=== PATIENT | female | born 1995 | race Caucasian/White ===

== ENCOUNTER 2023-03-19 11:21 | Outpatient (CLI) | payer OTHER, SELFPAY ==
--- NOTE | ~2023-03-19 | XR_ITS ---
XR finger 4th LT min 2V DATE: 03/19/2023 11:51 INDICATION: Left ring finger stiffness. Unable to bend distal interphalangeal joint TECHNIQUE: 4 views COMPARISON: None FINDINGS: No recent fracture or dislocation, periosteal reaction or bone destruction is detected. There is joint space target the proximal interphalangeal joint with slight. Spurring, consistent with osteoarthritis. 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 ACUTE
== END 2023-03-19 11:22 | disposition home or self-care (01) ==
PROVIDERS: PCP Family Medicine; Visit Provider Plastic Surgery
DX: M19.042 Primary osteoarthritis, left hand (principal); S63.635A Sprain of interphalangeal joint of left ring finger, initial encounter
CPT/HCPCS: 73140

== ENCOUNTER 2023-04-06 09:15 | Outpatient (CLI) | payer OTHER, SELFPAY ==
--- NOTE | ~2023-04-06 | MR_ITS ---
MRI of the left hand CLINICAL HISTORY: Left ring finger tendon injury versus sprain TECHNIQUE: Coronal T1-weighted and T2 fat-sat images, axial T1-weighted and T2 fat-sat images, and sa gittal T1-weighted and T2 fat-sat images were performed. FINDINGS: Bone marrow signals are essentially unremarkable. No suspicious marrow edema or T1 marrow s ignal abnormality seen. No fracture seen. There is moderate degenerative change at the fourth PIP lorraine nt, with minimal reactive marrow edema about the joint space. Remaining joint spaces are relatively w ell-preserved. Flexor and extensor tendons are intact. Visualized musculature unremarkable. No joint effusion seen. No soft tissue mass or fluid collection identified. IMPRESSION: Moderate degenerative change at the fourth PIP joint. No other significant findings. Reviewed, dictated and finalized at location . EL OPERATOR
== END 2023-04-06 09:16 | disposition home or self-care (01) ==
LOC: ANHIMG 09:17
PROVIDERS: PCP Family Medicine; Visit Provider Plastic Surgery
DX: S63.635A Sprain of interphalangeal joint of left ring finger, initial encounter (principal); S56.119A Strain of flexor muscle, fascia and tendon of finger of unspecified finger at forearm level, initial encounter; X58.XXXA Exposure to other specified factors, initial encounter
CPT/HCPCS: 73218

== ENCOUNTER 2023-06-12 08:15 | Outpatient (RCR) | payer OTHER, SELFPAY ==
--- NOTE | 2023-05-24 15:40 | OTOPEVAL1 ---
Assessment and note entered by Pino Blackmon, MAIA/Arjun, CHT Evaluation Information 05/24/23 Diagnosis Left ring finger PIP joint sprain Onset ~6 months ago Subjective Information Patient fell and the ring finger was bent backwards. She presents today with residual pain, stiffness, and weakness. Difficulties with gripping items. 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 She is right handed. Reported Pain Level Pain Score 0/10 at rest Comments Sharp increase in pain if the finger is forcefully bent, like when her dog runs into her hand. Assessment OT Clinical Summary Patient referred to OT with left ring finger PIP sprain. She presents with residual stiffness and weakness that limits gross functional gripping and typing tasks. Skilled OT indicated for HEP instruction/progression, modalities, ROM, strengthening, and functional therapeutic exercises to facilitate optimal functional strength, ROM, and use of her left hand. Plan of Care Interventions Therapeutic Exercise,Manual Therapy,Hot Pack/Cold Pack,Paraffin OT Services Indicated Yes Treatment Frequency and 1x/week for 4 visits Duration These treatments will address the objective and functional deficits as defined above. The patient will be advanced safely and appropriately in order for the patient to progress towards his/her prior level of function. Additional exercises will be introduced and as well as a comprehensive home exercise program upon discharge, if needed, ?to ensure carryover of functional gains achieved in the clinic. This treatment plan has been reviewed and agreement upon by the patient.
--- NOTE | 2023-05-29 11:37 | PCOTNOTE ---
Patient did not show up for scheduled appointment this date. Called patient and left voicemail regarding missed appt and reminded of next appt time/date.
--- NOTE | 2023-06-19 11:37 | PCOTNOTE ---
Patient did not show up for scheduled appointment this date. Called patient and left voicemail regarding missed appt and to call back to schedule as it was her re-eval.
--- NOTE | 2023-07-03 08:04 | OTOPDC ---
Assessment and note entered by Pino Blackmon, MAIA/Arjun, CHT OT Discharge Notification 07/03/23 OT Clinical Summary Patient is unfortunately being discharged due to poor attendance. We have been unable to contact her. Patient was referred to OT with a chronic PIP joint sprain. She was independent with active/ passive ROM, putty HEP, as well as flexion strap for passive prolonged flexion stretching. Discharging with no formal reassessment completed.
== END 2023-07-03 11:15 | disposition home or self-care (01) ==
LOC: ANHOT 08:15
PROVIDERS: PCP Family Medicine; Visit Provider Plastic Surgery
DX: S63.635D Sprain of interphalangeal joint of left ring finger, subsequent encounter (principal)
CPT/HCPCS: 97018; 97110; 97165; 99199

== ENCOUNTER 2024-06-18 14:19 | Emergency (ER) | payer OTHER, SELFPAY ==
--- NOTE | ~2024-06-18 | XR_ITS ---
EXAMINATION: XR ankle LT 2V DATE: 06/18/2024 14:36 INDICATION: Left ankle pain and swelling post fall TECHNIQUE: Anteroposterior and lateral views of the left ankle were obtained. COMPARISON: 11/27/2007 FINDINGS: There is an oblique fracture through the distal fibula with a fracture plane exiting medially at the level of the tibiotalar joint. There is minimal displacement. Subtle linear lucency consistent with a likely second nondisplaced comminuted fracture across the posterior malleolus which does not appear to involve the articular cortex. The medial malleolus as well as the talar dome are intact. Ankle mo rtise remains congruent. Small to moderate-sized Achilles and plantar calcaneal spurs. Soft tissue sw elling overlying the lateral malleolus. No ankle joint effusion. IMPRESSION: 1. Minimally displaced oblique fracture of the distal left fibula consistent with a Williamson type B inju ry pattern. 2. Likely nondisplaced fracture across the posterior malleolus. Reviewed, dictated and finalized at location A. G[facility]ADEMIC IMPRESSION: 1. Minimally displaced oblique fracture of the distal left fibula consistent wi th a Williamson type B injury pattern. 2. Likely nondisplaced fracture across the posterior malleolus.
--- OUTSIDE RECORDS SUMMARY | 2024-06-18 14:22 | XMS_ITS | Clinical Summary ---
Author Organization [email or web address] Address [address] [place] [address] Care Team Providers Care Bumper Operator Name Role Phone Daisy Hanks AMY-YAMILA Primary Care Provider Source Comments [facility],non-owned Affiliates and Associated Physician Practices is amultiple site organization consisting of ambulatory clinics and hospital sitesin [place], [place]. This disclosure is being madepursuant to the Care Everywhere program and may not contain all information available regarding this patient. Last updated 18.[email or web address] Allergies Active Allergy Reactions Criticality Noted Date Comments Skin Adhesives Rash Medium 01/30/2023 rash Medications * Be aware that medications may not be up to date on this document. Alwaysverify current medications with the patient. Medication Sig Dispensed Refills Start Date End Date Status SUMAtriptan (Imitrex) 25 MG tablet TAKE 1 TABLET BY MOUTH AT ONSET OF SYMPTOMS. MAY REPEAT IN 2 HOURS FOR 1 DOSE. DO NOT EXCEED 200 MG IN 24 HOURS 01/10/2022 Active etonogestrel (Nexplanon) 68 MG implant Nexplanon 68 mg subdermal implant Active ibuprofen (Motrin) 600 MG tablet Take 1 (one) tablet by mouth every 6 hours as needed for Pain 30 tablet 01/24/2024 Active docusate sodium (Colace) 100 MG capsule Take 1 (one) capsule by mouth 2 times daily 14 capsule 01/24/2024 Active ondansetron, disintegrating, (Zofran ODT) 4 MG tablet Take 1 (one) tablet by mouth every 6 hours as needed for Nausea/Vomiting Allow tablet to dissolve on the tongue 20 tablet 01/24/2024 Active methocarbamol (Robaxin) 750 MG tablet Take 1 (one) tablet by mouth every 6 hours as needed for Muscle Spasms 8 tablet 01/24/2024 Active Sodium Chloride Flush (0.9% NaCl) injection 10 mL by Intracatheter route every 12 hours 100 mL 2 02/26/2024 Active oxyCODONE, immediate release, (Roxicodone) 10 MG tabletIndications:A cute cholecystitis Take 1 (one) tablet by mouth every 4 hours as needed 10 tablet 03/13/2024 Active acetaminophen (Tylenol) 325 MG tablet Take 2 (two) tablets by mouth every 6 hours as needed Maximum allowable Acetaminophen amount = 4 Grams (4000 mg) / 24 hours. 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 (F LUZONE; FLULAVAL; FLUARIX; AFLURIA QUADRIVALENT; 6MO+), 0.5 ML (IIV4) 03/04/2022(Deferred: Patient Refused) Social History Tobacco Use Types Packs/Day Years Used Date Smoking Tobacco: Never Smokeless Tobacco: Never Tobacco Cessation:Counseling Given: Yes Alcohol Use Standard Drinks/Week Comments Never 0 (1 standard drink = 0.6 oz pur e alcohol) AUDIT-C Answer Date Recorded Q1: How often do you have a drink containing alcohol? Never 03/13/2024 Q2: How many drinks containi ng alcohol do you have on a typical day when you are drinking? Patient does not drink Q3: How often do you have si x or more drinks on one occasion? Never 03/13/2024 Overall Financial Resource Strain (CARDIA) Answe r Date Recorded How hard is it for you to pa y for the very basics like food, housing, medical care, and heating? Not very hard 03/13/2024 [facility] - Occupational Stress Questionnaire Answer Date Recorded Do you feel stress - tense, restless, nervous, or anxious, or unable to sleep at night because your mind is troubled all the time - these days? Not at all 03/13/2024 Hunger Vital Sign Answer Date Recorded Within the past 12 months, y ou worried that your food would run out before you got the money to buy more. Never true 03/13/20 24 Within the past 12 months, t he food you bought just didn't last and you didn't have money to get more. Never true 03/13/2024 PRAPARE - Transportation Answer Date Re corded In the past 12 months, has l ack of transportation kept you from medical appointments or from getting medications? No 12/2023 In the past 12 months, has l ack of transportation kept you from meetings, work, or from getting things needed for daily living? No 03/13/2024 Housing Stability Vital Sign Answer Santi e Recorded In the last 12 months, was t here a time when you were not able to pay the mortgage or rent on time? Patient declined 01/21/20 Number of Places Lived in the Last Year Not on f ile 01/21/2024 In the last 12 months, was t here a time when you did not have a steady place to sleep or slept in a intermediate (including now)? Patient declined 01/21/2024 Housing Stability Vital Sign Answer Santi e Recorded In the last 12 months, was t here a time when you were not able to pay the mortgage or rent on time? No 03/13/2024 In the past 12 months, how m any times have you moved where you were living? 1 03/13/2024 At any time in the past 12 m [facility], were you homeless or living in a intermediate (including now)? No 03/13/2024 Sex and Gender Information Value Date Recorded Sex Assigned at Not on file Gender Identity Not on file Sexual Orientation Not on file Last Filed Vital Signs Vital Sign Reading Time Taken Comments Blood Pressure 131/80 03/13/2024 7:27 AM YARDER BOSS Pulse 75 03/13/2024 7:27 AM YARDER BOSS Temperature 36.7 C (98 F) 03/13/2024 7:27 AM YARDER BOSS Respiratory Rate 18 03/13/2024 7:27 AM YARDER BOSS Oxygen Saturation 100% 03/13/2024 7:27 AM YARDER BOSS Inhaled Oxygen Concentration - - Weight 131.5 kg (290 lb) 03/12/2024 10:39 AM YARDER BOSS Height 167.6 cm (5' 6 ) 03/12/2024 10:39 AM YARDER BOSS Body Mass Index 46.81 03/12/2024 10:39 AM YARDER BOSS Plan of Treatment Health Maintenance Due Date Last Done Comments PAP SMEAR 1997 HIV SCREENING 2012 HEPATITIS C SCREENING 05/23/2015 DTAP/TDAP/TD VACCINES (1 - Tdap) 2016 HEPATITIS B VACCINE (1 of 3 - 19+ 3-dose series) 2016 COVID-19 VACCINE ( - 2023-2 5 season) 2024 INFLUENZA VACCINE (#1) 2024 02/18/2013 DEPRESSION SCREENING 05/06/2024 ZOSTER VACCINE (1 of 2) 2047 HIB VACCINE Aged Out No longer eligi ble based on patient's age to complete this topic HPV VACCINE Aged Out No longer eligi ble based on patient's age to complete this topic MENINGOCOCCAL (Group B) VACCINE Aged Out No longer eligible based on patient's age to complete this topic MENINGOCOCCAL VACCINE Aged Out No arsenio javy eligible based on patient's age to complete this topic PNEUMOCOCCAL VACCINE Aged Out No long er eligible based on patient's age to complete this topic Advance Directives * Full Code (Latest Code Status on File) Date Activated Date Inactivated Comments 03/12/2024 5:08 PM 03/13/2024 4:23 PM * Full Code Date Activated Date Inactivated Comments 01/21/2024 4:58 PM 01/24/2024 6:16 PM * Full Code Date Activated Date Inactivated Comments 11/21/2022 8:12 PM 11/22/2022 2:12 PM * Full Code Date Activated Date Inactivated Comments 03/04/2022 1:25 AM 03/04/2022 7:19 PM Care Teams Bumper Operator Relationship Specialty Start Date End Date Daisy Hanks, TIRE REPAIR MECHANIC-TATTOOER [address] [facility] [address] [phone] PCP - General Nurse Practitioner 02/06/24
--- OUTSIDE RECORDS SUMMARY | 2024-06-18 14:22 | XMS_ITS | Clinical Summary ---
Author Organization [facility] [place] [address] Care Team Providers Care Podiatric Aide Name Role Phone Daisy Hanks SAIGE Primary Care Provider [phone] Allergies No known active allergies Medications No known medications Social History Tobacco Use Types Packs/Day Years Used Date Smoking Tobacco: Never Smokeless Tobacco: Never Tobacco Cessation:Counseling Given: No Comments Unknown Sex and Gender Information Value Date Recorded Sex Assigned at Not on file Legal Sex Female 5:37 PM CDT Gender Identity Not on file Sexual Orientation Not on file Last Filed Vital Signs Vital Sign Reading Time Taken Comments Blood Pressure 127/88 01/21/2024 2:54 PM CDT Pulse 94 01/21/2024 2:54 PM CDT Temperature 36.6 C (97.8 F) 01/21/2024 2:54 PM CDT Respiratory Rate 18 01/21/2024 2:54 PM CDT Oxygen Saturation 100% 01/21/2024 2:54 PM CDT Inhaled Oxygen Concentration - - Weight 127 kg (280 lb) 01/20/2024 6:29 PM CDT Height 165.1 cm (5' 5 ) 01/20/2024 6:29 PM CDT Body Mass Index 46.59 01/20/2024 6:29 PM CDT Plan of Treatment Health Maintenance Due Date Last Done Comments Cervical Cancer Screening Pa p Smear (Age 21 to 29) Every 3 Years 1997 Cervical Cancer Screening 1997 Annual Physical 2000 Hepatitis C 2015 Hepatitis B Vaccines (1 of 3 - 19+ 3-dose series) 2016 DTaP, Tdap and Td Vaccines ( 2 - Td or Tdap) 01/20/2022 01/21/2012 COVID-19 Vaccine (1 - 2023-2 5 season) 2024 Influenza Adult (#1) 2024 02/18/2013 HPV Vaccines Completed 05/21/2014, 07/14/2012, 05/23/2012 Meningococcal Vaccine Completed 08/25/2015 , 05/23/2012 Meningococcal B Vaccine Aged Out No l onger eligible based on patient's age to complete this topic Pneumococcal Vaccine: Pediatrics (0 to 5 Years) and At-Risk Patients (6 to 64 Years) Aged Out No longer eligible b ased on patient's age to complete this topic RSV Immunizations Under 20 Months Aged Out No longer eligible b ased on patient's age to complete this topic Insurance Care Teams Podiatric Aide Relationship Specialty Start Date End Date Daisy Hanks APNP [address] [phone] PCP - General Nurse Practitioner Family 01/20/24
--- OUTSIDE RECORDS SUMMARY | 2024-06-18 14:22 | XMS_ITS | Patient Health Summary ---
Author Organization [facility] Address [address] [place] [address] Care Team Providers Care Audio Installer Name Role Phone Daisy Hanks AMY-YAMILA Primary Care Provider Note from [facility],non-owned Affiliates and Associated Physician Practices is amultiple site organization consisting of ambulatory clinics and hospital sitesin [place], [place], [place] and [place]. This disclosure is being madepursuant to the Care Everywhere program and may not contain all information available regarding this patient. Last updated 18.[facility] Allergies * Skin Adhesives(Rash) -Medium Criticality * Morphine(Unknown),Inactive Medications * Be aware that medications may not be up to date on this document. Alwaysverify current medications with the patient. * SUMAtriptan (Imitrex) 25 MG tablet(Started 01/10/2022) TAKE 1 TABLET BY MOUTH AT ONSET OF SYMPTOMS. MAY REPEAT IN 2 HOURS FOR 1 DOSE. DO NOT EXCEED 200 MGIN 24 HOURS * etonogestrel (Nexplanon) 68 MG implant Nexplanon 68 mg subdermal implant * ibuprofen (Motrin) 600 MG tablet(Started 01/24/2024) Take 1 (one) tablet by mouth every 6 hours as needed for Pain * docusate sodium (Colace) 100 MG capsule(Started 01/24/2024) Take 1 (one) capsule by mouth 2 times daily * ondansetron, disintegrating, (Zofran ODT) 4 MG tablet(Started 01/24/2024) Take 1 (one) tablet by mouth every 6 hours as needed for Nausea/Vomiting Allow tablet to dissolve on the tongue * methocarbamol (Robaxin) 750 MG tablet(Started 01/24/2024) Take 1 (one) tablet by mouth every 6 hours as needed for Muscle Spasms * Sodium Chloride Flush (0.9% NaCl) injection(Started 02/26/2024) 10 mL by Intracatheter route every 12 hours 2 refills by 02/25/2025 * oxyCODONE, immediate release, (Roxicodone) 10 MG tablet(Started 03/13/2024) Take 1 (one) tablet by mouth every 4 hours as needed * acetaminophen (Tylenol) 325 MG tablet(Started 03/13/2024) Take 2 (two) tablets by mouth every 6 hours as needed Maximum allowable Acetaminophen amount = 4 Grams (4000 mg) / 24 hours. 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 Not very hard 03/13/2024 [facility] of Occupat ional Health - Occupational Stress [...] or rent on time? Patient declined 01/21/20 24 Number of Places Lived in the Last Year Not on f ile 01/21/2024 In the last 12 months, was t here a time when you did not have a steady place to sleep or slept in a halfway (including now)? Patient declined 01/21/2024 Housing Stability [...] any time in the past 12 m [facility], were you homeless or living in a halfway (including now)? No 03/13/2024 Sex and Gender Information Value Date Recorded Sex Assigned at Not on file Gender Identity Not on file Sexual Orientation Not on file Last Filed Vital Signs Vital Sign Reading Time Taken Comments Blood Pressure 131/80 03/13/2024 7:27 AM OFFICE AIDE Pulse 75 03/13/2024 7:27 AM OFFICE AIDE Temperature 36.7 C (98 F) 03/13/2024 7:27 AM OFFICE AIDE Respiratory Rate 18 03/13/2024 7:27 AM OFFICE AIDE Oxygen Saturation 100% 03/13/2024 7:27 AM OFFICE AIDE Inhaled Oxygen Concentration - - Weight 131.5 kg (290 lb) 03/12/2024 10:39 AM OFFICE AIDE Height 167.6 cm (5' 6 ) 03/12/2024 10:39 AM OFFICE AIDE Body Mass Index 46.81 03/12/2024 10:39 AM OFFICE AIDE Procedures * CBC W AUTO DIFFERENTIAL(Performed 03/13/2024) Performed for Pelvic pain in female * PHOSPHORUS BLOOD(Performed 03/13/2024) Performed for Pelvic pain in female * MAGNESIUM BLOOD(Performed 03/13/2024) Performed for Pelvic pain in female * COMPREHENSIVE METABOLIC PANEL(Performed 03/13/2024) Performed for Pelvic pain in female * EKG 12-LEAD(Performed 03/12/2024) Performed for Acute cholecystitis * MAGNESIUM BLOOD(Performed 03/12/2024) Performed for Pelvic pain in female * PHOSPHORUS BLOOD(Performed 03/12/2024) Performed for Pelvic pain in female * CBC W AUTO DIFFERENTIAL(Performed 03/12/2024) Performed for Pelvic pain in female * COMPREHENSIVE METABOLIC PANEL(Performed 03/12/2024) Performed for Pelvic pain in female * PATHOLOGY TISSUE(Performed 03/12/2024) Performed for Acute cholecystitis * PT EVAL AND TREAT(Performed 03/12/2024) * OT EVAL AND TREAT(Performed 03/12/2024) * PERIPHERAL IV NOTE(Performed 03/12/2024) * ENDOTRACHEAL TUBE NOTE(Performed 03/12/2024) * AZ LAP,CHOLECYSTECTOMY(Performed 03/12/2024) Performed for Acute cholecystitis * BLOOD TYPE VERIFICATION(Performed 03/12/2024) * HCG URINE QUALITATIVE - POCT (IP) INTERFACED(Performed 03/12/2024) * TYPE + SCREEN PANEL(Performed 03/12/2024) Performed for Acute cholecystitis * HCG URINE QUALITATIVE - POCT (IP) INTERFACED(Performed 03/12/2024) * HCG URINE QUAL POCT NOTIFICATION(Performed 03/12/2024) Performed for Acute cholecystitis * IR BILIARY DRAIN CATH EXCHANGE(Performed 02/17/2024) Performed for Gall stones * COMPREHENSIVE METABOLIC PANEL(Performed 01/24/2024) * PHOSPHORUS BLOOD(Performed 01/24/2024) * MAGNESIUM BLOOD(Performed 01/24/2024) * CBC W/O DIFFERENTIAL(Performed 01/24/2024) * COMPREHENSIVE METABOLIC PANEL(Performed 01/23/2024) * CBC W AUTO DIFFERENTIAL(Performed 01/23/2024) * IR GALLBLADDER DRAINAGE(Performed 01/23/2024) Performed for Acute cholecystitis * CULTURE FUNGUS OTHER+FUNGUS SMEAR(Performed 01/23/2024) Performed for Acute cholecystitis * CULTURE ANAEROBE(Performed 01/23/2024) Performed for Acute cholecystitis * CULTURE AFB+SMEAR(Performed 01/23/2024) Performed for Acute cholecystitis * CULTURE FLUID+GRAM STAIN(Performed 01/23/2024) Performed for Acute cholecystitis * PT-INR(Performed 01/23/2024) Performed for Acute cholecystitis * PHOSPHORUS BLOOD(Performed 01/23/2024) * MAGNESIUM BLOOD(Performed 01/23/2024) * CBC W/O DIFFERENTIAL(Performed 01/23/2024) * BASIC METABOLIC PANEL (CALCIUM TOTAL)(Performed 01/23/2024) * ENDOTRACHEAL TUBE NOTE(Performed 01/22/2024) * AZ LAP,CHOLECYSTECTOMY(Performed 01/22/2024) Performed for Acute cholecystitis * PHOSPHORUS BLOOD(Performed 01/22/2024) * MAGNESIUM BLOOD(Performed 01/22/2024) * CBC W/O DIFFERENTIAL(Performed 01/22/2024) * BASIC METABOLIC PANEL (CALCIUM TOTAL)(Performed 01/22/2024) * TYPE + SCREEN PANEL(Performed 01/21/2024) * HCG BETA BLOOD QUANTITATIVE(Performed 01/21/2024) * COMPREHENSIVE METABOLIC PANEL(Performed 01/21/2024) * CBC W AUTO DIFFERENTIAL(Performed 01/21/2024) * CARDIAC RHYTHM STRIP ORDER(Performed 02/01/2023) * ENDOTRACHEAL TUBE NOTE(Performed 01/30/2023) * HCG URINE QUAL POCT NOTIFICATION(Performed 01/30/2023) Performed for Preprocedural examination * AZ LAP,DIAGNOSTIC ABDOMEN(Performed 01/30/2023) Performed for Diagnosis unknown * TYPE + SCREEN PANEL(Performed 01/30/2023) Performed for Preprocedural examination * CBC W AUTO DIFFERENTIAL(Performed 01/30/2023) Performed for Preprocedural examination * HCG URINE QUALITATIVE - POCT (IP) INTERFACED(Performed 01/30/2023) * CARDIAC RHYTHM STRIP ORDER(Performed 11/24/2022) * PATHOLOGY TISSUE EXAM (STL)(Performed 11/21/2022) Performed for Diagnosis unknown * ENDOTRACHEAL TUBE NOTE(Performed 11/21/2022) * AZ LAP,DIAGNOSTIC ABDOMEN(Performed 11/21/2022) * EKG 12-LEAD(Performed 11/21/2022) Performed for Other chest pain * US PELVIS W TRANSVAG W DOP NON OB(Performed 11/21/2022) Performed for Pelvic pain in female * HCG URINE QUAL POCT NOTIFICATION(Performed 11/21/2022) * HCG URINE QUALITATIVE(Performed 11/21/2022) * CBC W AUTO DIFFERENTIAL(Performed 11/21/2022) * BASIC METABOLIC PANEL (CALCIUM TOTAL)(Performed 11/21/2022) * CARDIAC EKG ORDER(Performed 08/23/2022) * EKG 12-LEAD(Performed 08/21/2022) Performed for Facial nerve palsy * TROPONIN I(Performed 08/21/2022) * PT-INR(Performed 08/21/2022) * COMPREHENSIVE METABOLIC PANEL(Performed 08/21/2022) * CBC W AUTO DIFFERENTIAL(Performed 08/21/2022) * CT BRAIN STROKE(Performed 08/21/2022) Performed for Facial nerve palsy * CARDIAC RHYTHM STRIP ORDER(Performed 03/05/2022) * PATHOLOGY TISSUE EXAM (STL)(Performed 03/04/2022) Performed for Diagnosis unknown * ENDOTRACHEAL TUBE NOTE(Performed 03/04/2022) * AZ LAP,DIAGNOSTIC ABDOMEN(Performed 03/04/2022) * CBC W/O DIFFERENTIAL(Performed 03/04/2022) Performed for Abdominal pain, right lower quadrant * TYPE + SCREEN PANEL(Performed 03/03/2022) * CBC W AUTO DIFFERENTIAL(Performed 03/03/2022) * US PELVIS W TRANSVAG NON OB(Performed 03/03/2022) Performed for RLQ abdominal pain * CT ABDOMEN PELVIS W CONTRAST(Performed 03/03/2022) Performed for RLQ abdominal pain * URINALYSIS REFLEX TO MICROSCOPIC NO CULTURE(Performed 03/03/2022) * HCG BETA BLOOD QUANTITATIVE(Performed 03/03/2022) * LACTIC ACID BLOOD(Performed 03/03/2022) * COMPREHENSIVE METABOLIC PANEL(Performed 03/03/2022) * CBC W AUTO DIFFERENTIAL(Performed 03/03/2022) Results * (ABNORMAL) CBC W AUTO DIFFERENTIAL (03/13/2024 7:41 AM OFFICE AIDE) Only the most recent of9 resultswithin the time period is included. WBC 14.4(H) 4.0 - 10.7 x10E9/L 03/13/2024 7:51 AM [facility] RBC Count 4.19 3.90 - 5.20 x10E12/L 03/13/2024 7:51 AM [facility] Hemoglobin 12.5 11.9 - 15.8 g/dL 03/13/2024 7:51 AM [facility] Hematocrit 36.2 34.8 - 46.1 % 03/13/2024 7:51 AM [facility] MCV 86.4 80.0 - 98.0 fL 03/13/2024 7:51 AM [facility] MCH 29.8 26.7 - 33.6 pg 03/13/2024 7:51 AM [facility] MCHC 34.5 31.7 - 36.3 g/dL 03/13/2024 7:51 AM [facility] RDW-CV 11.5 11.3 - 14.8 % 03/13/2024 7:51 AM [facility] Platelet Count 247 150 - 420 x10E9/L 03/13/2024 7:51 AM [facility] MPV 9.3 7.8 - 11.4 fL 03/13/2024 7:51 AM [facility] Neutrophil % 84.3(H) 41.0 - 74.0 % 03/13/2024 7:51 AM [facility] Lymphocyte % 10.2(L) 17.0 - 47.0 % 03/13/2024 7:51 AM [facility] Monocyte % 5.0 3.0 - 11.0 % 03/13/2024 7:51 AM [facility] Eosinophil % 0.0 0.0 - 7.0 % 03/13/2024 7:51 AM [facility] Basophil % 0.1 0.0 - 1.6 % 03/13/2024 7:51 AM [facility] Immature Granulocytes % 0.4 0.0 - 1.0 % 03/13/2024 7:51 AM [facility] Neutrophil Absolute 12.10(H) 1.60 - 7.50 x10E9/L 03/13/2024 7:51 AM [facility] Lymphocyte Absolute 1.47 1.00 - 4.40 x10E9/L 03/13/2024 7:51 AM [facility] Monocyte Absolute 0.72 0.15 - 1.00 x10E9/L 03/13/2024 7:51 AM [facility] Eosinophil Absolute 0.00 0.00 - 0.60 x10E9/L 03/13/2024 7:51 AM [facility] Basophil Absolute 0.02 0.00 - 0.13 x10E9/L 03/13/2024 7:51 AM [facility] Blood BLOOD SPECIMEN / Unknown Venipuncture / Unknown 03/13/2024 7:41 AM OFFICE AIDE 03/13/2024 7:45 AM [facility] Hui Oneal MD LAB - HEMATOLOGY ORD ERABLES [facility] [address] [place] [phone] [phone] * (ABNORMAL) COMPREHENSIVE METABOLIC PANEL (03/13/2024 6:23 AM [facility]) Only the most recent of7 resultswithin the time period is included. BUN <5(L) 7 - 26 mg/dL 03/13/2024 6:57 AM [facility] Creatinine 0.52(L) 0.56 - 0.96 mg/dL 03/13/2024 6:57 AM [facility] Sodium 140 136 - 145 mmol/L 03/13/2024 6:57 AM [facility] Potassium 3.7 3.5 - 4.5 mmol/L 03/13/2024 6:57 AM [facility] Chloride 114(H) 98 - 107 mmol/L 03/13/2024 6:57 AM [facility] CO2 18(L) 22 - 29 mmol/L 03/13/2024 6:57 AM [facility] Glucose 108(H) 70 - 99 mg/dL 03/13/2024 6:57 AM [facility] Calcium 7.2(L) 8.4 - 10.2 mg/dL 03/13/2024 6:57 AM [facility] Protein Total 5.7(L) 6.0 - 8.3 g/dL 03/13/2024 6:57 AM [facility] Albumin 2.8(L) 3.4 - 5.0 g/dL 03/13/2024 6:57 AM [facility] Bilirubin Total 0.3 0.2 - 1.2 mg/dL 03/13/2024 6:57 AM [facility] Alkaline Phosphatase 65 40 - 150 U/L 03/13/2024 6:57 AM [facility] ALT 27 5 - 55 U/L 03/13/2024 6:57 AM [facility] AST 29 5 - 34 U/L 03/13/2024 6:57 AM [facility] Anion Gap 8 6 - 16 03/13/2024 6:57 AM [facility] BUN/Creatinine Ratio <10 7 - 23 03/13/2024 6:57 AM [facility] Osmolality Calculated <288 275 - 295 mOsm/kg 03/13/2024 6:57 AM [facility] Albumin/Globulin Ratio 1.0(L) 1.1 - 2.3 03/13/2024 6:57 AM [facility] eGFR by CKD-EPI >90 >=90 mL/min/1.7 3 m2 03/13/2024 6:57 AM [facility] Blood BLOOD SPECIMEN / Unknown Venipuncture / Unknown 03/13/2024 6:23 AM OFFICE AIDE 03/13/2024 6:31 AM [facility] Hui Oneal MD LAB - CHEMISTRY [place] [facility] Organization Address City/State/ZIP Co de Phone Number [facility] [address] [place] [phone], [facility] [phone] * (ABNORMAL) PHOSPHORUS BLOOD (03/13/2024 6:23 AM [facility]) Only the most recent of5 resultswithin the time period is included. Phosphorus 1.9(L) 2.9 - 5.1 mg/dL 03/13/2024 6:57 AM [facility] Blood BLOOD SPECIMEN / Unknown Venipuncture / Unknown 03/13/2024 6:23 AM OFFICE AIDE 03/13/2024 6:31 AM OFFICE AIDE Hui Oneal MD LAB - CHEMISTRY [place] Performing Organization Address City/[facility]/ZIP Co de Phone Number [address] [phone], [facility] [phone] * MAGNESIUM BLOOD (03/13/2024 6:23 AM OFFICE AIDE) Only the most recent of5 resultswithin the time period is included. Pathologist [facility] Magnesium 1.6 1.6 - 2.6 mg/dL 03/13/2024 6:57 AM OFFICE AIDE [facility] Blood BLOOD SPECIMEN / Unknown Venipuncture / Unknown 03/13/2024 6:23 AM OFFICE AIDE 03/13/2024 6:31 AM OFFICE AIDE Hui Oneal MD LAB - CHEMISTRY [place] Performing Organization Address [facility] Co de Phone Number [address] [phone], [facility] [phone] * EKG 12-LEAD (03/12/2024 7:54 PM OFFICE AIDE) Only the most recent of3 resultswithin the time period is included. Ventricular Rate 98 BPM SL MUSE Atrial Rate 98 BPM [facility] MUSE P-R Interval 146 ms [facility] MUSE QRS Duration ms 90 ms [facility] MUSE Q-T Interval ms 372 ms [facility] MUSE QTC Calculation (Bezet) 474 ms [facility] MUSE Calculated P [place] 65 degrees [facility] MUSE Calculated R [place] 26 degrees [facility] MUSE Calculated T [place] 36 degrees [facility] MUSE Interpretation EKG NORMAL SINUS RHYTHM NORMAL ECG WHEN COMPARED WITH ECG OF 21-NOV-2022 15:26, VENT. RATE HAS INCREASED BY 38 BPM Confirmed by TANIA URIARTE MD ([id number]) on 03/14/2024 3:45:03 PM [facility] MUSE 03/12/2024 7:54 PM OFFICE AIDE 03/14/2024 3:45 PM OFFICE AIDE Hui Oneal MD ECG ORDERABLES [facility] MUSE * PATHOLOGY TISSUE (03/12/2024 5:12 PM OFFICE AIDE) Case Report Surgical Pathology Report Case: [id number] Authorizing Provider: Hui Oneal MD Collected: 03/12/2024 05:12 PM Ordering Location: [facility] ASAD OP Received: 03/13/2024 07:10 AM Pathologist: Jing Araya MD Specimen: Gallbladder, gallbladder 03/16/2024 11:20 AM [facility] Final Diagnosis Gallbladder, cholecystectomy (A): - Mild chronic cholecystitis - Cholelithiasis and mucosal erosion 03/16/2024 11:20 AM [facility] Microscopic Description and Comment Microscopic examination substantiates the final diagnosis. 03/16/2024 11:20 AM [facility] Clinical History The patient is a 28-year-old woman transferred with acute cholecystitis. Operative procedure: Robotic cholecystectomy. 03/16/2024 11:20 AM [facility] Gross Description The requisition and specimen(s) are identified with the patient's name, Brandy Diaz. Received in formalin, specimen A , is an 8.3 cm length x 2.7 cm maximum diameter gallbladder with a 0.2 cm length x 0.5 cm diameter cystic duct, received clamped. The cystic duct is patent and the margin is inked blue. Also received separately in the container are 2 brown-yellow, multifaceted, smooth gallstones, measuring 1.4 and 1.8 cm in greatest dimension. The gallbladder serosa is red-brown to red-purple and dusky with multiple, pinpoint areas of hemorrhage. The hepatic bed surface is roughened with 2 proximal transmural perforations, measuring 1.2 and 1.6 cm in greatest dimension. Opening shows red-brown, roughened and hemorrhagic mucosa that ranges from velvety to smooth and slightly trabeculated. Additional gallstones are identified in the lumen of the gallbladder, ranging from 0.4 to 1.8 cm in greatest dimension. No bile is present. The gallbladder wall ranges from 0.1 to 1.2 cm in thickness (in fundus). Appraiser Auditor sections are submitted as follows: A1, gallbladder wall, including areas of perforation; A2, additional sections of gallbladder wall, including areas of thickening at fundus. AL 03/16/2024 11:20 AM [facility] Pathologist Location at [facility] 03/16/2024 11:20 AM [facility] Disclaimer The performance characteristics of all immunohistochemical and indirect immunofluorescence stains (if any) cited in this report were determined by the Histopathology Laboratory of [facility]. Some of these tests were developed by our own laboratory and have not been cleared or approved by the US Food and Drug Administration. The FDA does not require this test to go through premarket FDA review. These tests are used for clinical purposes. They should not be regarded as investigational or for research. This laboratory is certified under the Clinical Laboratory Improvement Amendments (CLIA) as qualified to perform high complexity clinical laboratory testing. This case has been personally reviewed and interpreted by the attending (teaching) pathologist. 03/16/2024 11:20 AM [facility] Embedded Images 03/16/2024 11:20 AM [facility] Resection without Tumor ENTIRE GALLBLADDER / Unknown 03/12/2024 5:12 PM OFFICE AIDE 03/13/2024 7:10 AM OFFICE AIDE Comment:Pre-op diagnosis: ACUTE CHOLECYSTITIS Hui Oneal MD LAB - PATHOLOGY/CYTO LOGY ORDERABLES Performing Organization Address City/State/[facility] Co de Phone Number [facility] [address] [phone] * IV PLACEMENT PERFORMABLE (03/12/2024 2:17 PM OFFICE AIDE) Narrative Octaviano Sahu MD - 03/12/2024 2:17 PM OFFICE AIDE Octaviano Sahu MD 03/12/2024 2:17 PM Peripheral IV Line Placement: Patient Location: OR Insertion Time: 03/12/2024 2:17 PM Procedure: IV start ([id number]) Procedure Section: Skin Prep: alcohol. Orientation: left Location: hand Catheter Gauge: 20 Number of Attempts: 2. Procedure Tolerance: performed while patient under general anesthesia. Staff Section Anesthesia Provider: Octaviano Sahu MD, Performed the procedure Octaviano Sahu MD GENERAL ANESTHESIA O RDERABLES * ETT LINE PERFORMABLE (03/12/2024 2:14 PM OFFICE AIDE) Narrative Janna Amos Anes Asst - 03/12/2024 2:14 PM OFFICE AIDE Janna Amos Anes Asst 03/12/2024 4:21 PM Endotracheal Tube Placement: Patient Location: OR. Intubation Event Date/Time: 03/12/2024 1:33 PM Procedure: intubation ([id number]) Procedure Section: Sedation: under general anesthesia. Indications for Airway Management: anesthesia Procedure pretreatments used? No Induction: standard IV Patient Position: sniffing Mask Ventilation: easy. Blade Type: Kristina Blade Size: 3 Laryngoscopy View: grade 1 (full cords) Intubation Adjuncts: stylet Tube: endotracheal tube Placement: oral Tube type: cuff - inflated Tube Size (MM): 7 Depth of Insertion (CM): 21 Measured From: teeth Cuff volume (mL): 10 Cuff Inflated With: air Number of Attempts: 1. Placement Verified By: direct visualization, bilateral breath sounds, chest auscultation and CO2 monitor CXR Findings: ETT in proper place. Tube secured with: adhesive tape (clear, per pt request). Dentition unchanged? Yes Difficult Airway? No. Procedure Start Time: 03/12/2024 1:33 PM. Procedure End Time: 03/12/2024 1:33 PM. Procedure Total Time: 0 minutes. Staff Section Anesthesia Provider: Janna Amos Anes Asst, Performed the procedure Octaviano Sahu MD GENERAL ANESTHESIA O RDERABLES * BLOOD TYPE VERIFICATION (03/12/2024 11:03 AM OFFICE AIDE) ABO Rh A NEG 03/12/2024 11:49 AM OFFICE AIDE [facility] Blood Bank BLOOD SPECIMEN / Unknown Venipuncture / Unknown 03/12/2024 11:03 AM OFFICE AIDE 03/12/2024 11:06 AM OFFICE AIDE Hui Oneal MD LAB - BLOOD BANK ORD ERABLES [facility] [address] [place] [address], [place] [phone] * HCG URINE QUALITATIVE - POCT (IP) INTERFACED (03/12/2024 10:42 AM OFFICE AIDE) Only the most recent of3 resultswithin the time period is included. HCG Qual Urine Negative Negative 03/12/2024 10:49 AM OFFICE AIDE [facility] Urine URINE / Unknown 03/12/2024 1 0:42 AM OFFICE AIDE 03/12/2024 10:49 AM OFFICE AIDE Hui Oneal MD LAB - POINT OF CARE ORDERABLES Performing Organization Address City/[facility]/ZIP Co de Phone Number [facility] [address] [place] [phone], [facility] [phone] * TYPE + SCREEN PANEL (03/12/2024 10:39 AM OFFICE AIDE) Only the most recent of4 resultswithin the time period is included. Antibody Screen NEG 11:38 AM OFFICE AIDE [facility]OD [facility] LAB ABO Rh A NEG 03/12/2024 11:38 AM OFFICE AIDE [facility] LAB Blood Bank BLOOD SPECIMEN / Unknown Venipuncture / Unknown 03/12/2024 10:39 AM OFFICE AIDE 03/12/2024 10:45 AM OFFICE AIDE Hui Oneal MD LAB - BLOOD BANK ORD ERABLES Performing Organization Address [facility] Co de Phone Number [facility] [address] [place] [phone], [facility] [phone] * HCG URINE QUAL POCT NOTIFICATION (03/12/2024 10:25 AM OFFICE AIDE) Only the most recent of3 resultswithin the time period is included. Comment Notification Label Only - See Separate Report 03/12/2024 11:31 AM OFFICE AIDE [facility] Urine URINE / Unknown 03/12/2024 1 0:25 AM OFFICE AIDE 03/12/2024 10:25 AM OFFICE AIDE Hui Oneal MD LAB - URINALYSIS ORD ERABLES Performing Organization Address City/[facility]/ZIP Co de Phone Number [address] [phone] [phone] * IR Biliary Drain Cath Exchange (02/17/2024 1:45 PM CDT) Anatomical Region Laterality Modality Abdomen X-Ray Angiograph y 02/17/2024 4:37 PM CDT Impressions 02/20/2024 7:09 PM CDT Impression: 1.Cholangiogram through existing cholecystostomy catheter demonstrated the cholecystostomy tube partially out of the gallbladder. 2.Exchange of the existing cholecystostomy catheter for a new 10 [place] cholecystostomy catheter under fluoroscopic guidance, as described above. Follow-up: The catheter is open for external drainage. Gently flush the catheter with 10 mL of saline three times a day. Recommend surgical follow-up. The patient should be scheduled for repeat cholangiogram with possible catheter exchange or removal in 4 weeks[address] [place], Dr. Shikha Morales, was present and performed/supervised the entire procedure. Moderate sedation on this patient was ordered by me, administered intravenously in my presence, and monitored by the procedure nurse as an independent trained observer who was present throughout the procedure. The following parameters were monitored: oxygen saturation, heart rate, blood pressure, and response to care. Intra-service sedation start time was 1330 and end time was 1345 during which I was present. Total physician intra-service sedation time was 15 minutes. For details on pre moderate sedation and post moderate sedation patient evaluation, please review the evaluation forms in [facility]. For details on monitored clinical parameters during the intra-service sedation time, please review the procedure nurse documentation in [facility]. > Dictated by Demario Colunga MD (Search Analyst) 02/17/2024 4:37 PM Shikha Logan MD have personally reviewed and interpreted this examination/study. > Interpreting Provider: Shikha Morales MD on 02/20/2024 7:09 PM Narrative 02/20/2024 7:09 PM CDT History: 28 year old female s/p diagnostic laparoscopy, aborted laparoscopic cholecystectomy on 01/22/2024 with IR cholecystostomy drain placed on POD1. Since then, she has been noticing occasional leakage from her cholecystostomy tube that she described as yellow fluid and feels like her drain could be dislodged. She denies fever, chills and is not experiencing pain in the site of her drain. Operators: 1.Dr. Shikha Morales, Attending Physician 2.Dr. Demario Colunga, Resident Physician Anesthesia: 1.Local anesthesia - 10 mL of 1% lidocaine 2.Intravenous conscious sedation - none. Procedure: 1.Cholangiogram through the existing cholecystostomy catheter. 2.Exchange of the existing cholecystostomy catheter for a new 10F cholecystostomy catheter under fluoroscopic guidance. Fluoroscopic time: 2 minutes 43 seconds Contrast: 15 mL of Isovue 370 Procedure in detail: The procedure, risk, and possible complications were explained to the patient in detail, and informed consent was obtained.The patient was placed in a supine position on the angiography table. The external component of the cholecystostomy catheter and the skin around this region were prepped and draped in the usual sterile manner. A book illustrator film of the upper abdomen was obtained which demonstrated the known cholecystostomy catheter in the right upper abdominal quadrant. After anesthetizing with 1% lidocaine at the catheter entry site, contrast was hand injected through the existing catheter and a cholangiogram was obtained, which showed the cholecystostomy tube partially out of the gallbladder. Over a wire, the existing 10 [place] ReSolve pigtail drainage catheter was exchanged for a new 10French ReSolve pigtail drainage catheter. Hand injection of contrast through the new catheter confirmed proper positioning. The catheter was then secured and connected to gravity drainage. The patient tolerated the procedure well and was transferred to the holding area in stable condition. There were no immediate complications associated with the procedure. Procedure Note Shikha Morales MD - 02/21/2024 History: 28 year old female s/p diagnostic laparoscopy, aborted laparoscopic cholecystectomy on 01/22/2024 with IR cholecystostomy drain placed on POD1. Since then, she has been noticing occasional leakagefrom her cholecystostomy tube that she described as yellow fluid and feelslike her drain could be dislodged. She denies fever, chills and is not experiencing pain in the site of her drain. Operators: 1.Dr. Shikha Morales, Attending Physician 2.Dr. Demario Colunga, Resident Physician Anesthesia: 1.Local anesthesia - 10 mL of 1% lidocaine 2.Intravenous conscious sedation - none. Procedure: 1.Cholangiogram through the existing cholecystostomy catheter. 2.Exchange of the existing cholecystostomy catheter for a new 10F cholecystostomy catheter under fluoroscopic guidance. Fluoroscopic time: 2 minutes 43 seconds Contrast: 15 mL of Isovue 370 Procedure in detail: The procedure, risk, and possible complications were explained to the patient in detail, and informed consent was obtained.The patient wasplaced in a supine position on the angiography table. The external component of the cholecystostomy catheter and the skin around this region wereprepped and draped in the usual sterile manner. A book illustrator film of the upper abdomen was obtained which demonstrated theknown cholecystostomy catheter in the right upper abdominal quadrant. After anesthetizing with 1% lidocaine at the catheter entry site, contrast was hand injected through the existing catheter and a cholangiogram was obtained, which showed the cholecystostomy tube partially out of the gallbladder. Over a wire, the existing 10 [place] ReSolve pigtail drainage catheterwas exchanged for a new 10French ReSolve pigtail drainage catheter. Hand injection of contrast through the new catheter confirmed proper positioning. The catheter was then secured and connected to gravity drainage. The patient tolerated the procedure well [facility]. There were no immediate complicationsassociated with the procedure. Impression: 1.Cholangiogram through existing cholecystostomy catheter demonstratedthe cholecystostomy tube partially out of the gallbladder. 2.Exchange of the existing cholecystostomy catheter for a new 10 [place]ayan cholecystostomy catheter under fluoroscopic guidance, as describedabove. Follow-up: The catheter is open for external drainage. Gently flush the catheter with 10 mL of saline three times a day. Recommend surgical follow-up. The patient should be scheduled for repeat cholangiogram with possible catheter exchange or removal in 4 weeks. I, Dr. Shikha Morales, was present and performed/supervised the entire procedure. Moderate sedation on this patient was ordered by me, administered intravenously in my presence, and monitored by theprocedure nurse as an independent trained observer who was present throughout the procedure. The following parameters were monitored: oxygen saturation, heart rate, blood pressure, and response to care. Intra-service sedation start time was 1330 and end time was 1345 during which I was present.Total physician intra-service sedation time was 15 minutes. For details on pre moderate sedation and post moderate sedation patient evaluation, please review the evaluation forms in [facility]. For details on monitored clinical parameters during the intra-service sedation time, please review the procedure nurse documentation in [facility]. > Dictated by Demario Colunga MD (Search Analyst) 02/17/2024 4:37 PM Shikha Logan MD have personally reviewed and interpreted this examination/study. > Interpreting Provider: Shikha Morales MD on 02/20/2024 7:09 PM Shikha Morales MD IR ORDERABLES * (ABNORMAL) CBC W/O DIFFERENTIAL (01/24/2024 3:59 AM CDT) Only the most recent of4 resultswithin the time period is included. WBC 8.1 4.0 - 10.7 x10E9/L 01/24/2024 4:37 AM CDT [facility] RBC Count 3.75(L) 3.90 - 5.20 x10E12/L 01/24/2024 4:37 AM CDT [facility] Hemoglobin 11.0(L) 11.9 - 15.8 g/dL 01/24/2024 4:37 AM CDT [facility] Hematocrit 33.9(L) 34.8 - 46.1 % 01/24/2024 4:37 AM CDT [facility] MCV 90.4 80.0 - 98.0 fL 01/24/2024 4:37 AM CDT [facility] MCH 29.3 26.7 - 33.6 pg 01/24/2024 4:37 AM CDT [facility] MCHC 32.4 31.7 - 36.3 g/dL 01/24/2024 4:37 AM CDT [facility] RDW-CV 11.6 11.3 - 14.8 % 01/24/2024 4:37 AM CDT [facility] Platelet Count 271 150 - 420 x10E9/L 01/24/2024 4:37 AM CDT [facility] MPV 9.5 7.8 - 11.4 fL 01/24/2024 4:37 AM CDT [facility] Blood BLOOD SPECIMEN / Unknown Lab Venipuncture / Unknown 01/24/2024 3:59 AM CDT 01/24/2024 4:17 AM CDT Hui Oneal MD LAB - HEMATOLOGY ORD ERABLES [facility] [address] [place] [address] [phone] * IR Gallbladder Drainage (01/23/2024 11:55 AM CDT) Anatomical Region Laterality Modality Abdomen X-Ray Angiograph y 01/23/2024 5:19 PM CDT Impressions 01/23/2024 6:06 PM CDT Impression: Successful placement of placement of a 10 [place]ruguayan pigtail cholecystostomy catheter as described above. Follow up: The catheter is open for external drainage. Gently flush the catheter with 10 mL of saline three times a day. All cholecystostomy catheters should remain in place for a minimum of 4 weeks for tract maturation. The catheter can be removed after checking patency of the cystic duct under fluoroscopic guidance and after capping the catheter for a reasonable amount of time. Recommend surgical follow-up prior to drain check. Desmond, Dr. Shikha Morales, was present and performed/supervised the entire procedure. Moderate sedation on this patient was ordered by me, administered intravenously in my presence, and monitored by the procedure nurse as an independent trained observer who was present throughout the procedure. The following parameters were monitored: oxygen saturation, heart rate, blood pressure, and response to care. Intra-service sedation start time was 1125 and end time was 11:55 AM during which I was present. Total physician intra-service sedation time was 30 minutes. For details on pre moderate sedation and post moderate sedation patient evaluation, please review the evaluation forms in [facility]. For details on monitored clinical parameters during the intra-service sedation time, please review the procedure nurse documentation in [facility]. > Dictated by Bonifacio Gomez MD (Search Analyst) 01/23/2024 5:19 PM Shikha Logan MD have personally reviewed and interpreted this examination/study. > Interpreting Provider: Shikha Morales MD on 01/23/2024 6:06 PM Narrative 01/23/2024 6:06 PM CDT History: 28-year-old female. Acute cholecystitis. Aborted laparoscopic cholecystectomy due to adhesions. Operators: 1.Dr. Shikha Morales, Attending Physician 2.Dr. Bonifacio Gomez, Fellow Physician Anesthesia: 1.Local anesthesia - 1 % lidocaine 2.Intravenous Conscious Sedation (Versed 3 mg and Fentanyl 150 mcg). Procedure: 1.Limited ultrasound evaluation of gall bladder. 2.Ultrasound and fluoroscopic guided placement of 10 [place]ayan pigtail drainage catheter in the gall bladder. Procedure in Detail: The procedure including risks and benefits were explained to the patient/proxy in detail, and informed consent was obtained. The patient was placed in a supine position on the procedure table, and a book illustrator film of the abdomen was obtained which was unremarkable. The limited USG evaluation demonstrated thickened gallbladder wall with stones within the gallbladder lumen.. The region of interest was prepped and draped in a sterile manner. Patient received intravenous conscious sedation with Versed and Fentanyl. Patient s vital signs were monitored by a qualified radiology nurse throughout the procedure. Local anesthesia was provided by the injection with 1% Lidocaine. Under real-time ultrasound guidance, gallbladder lumen was accessed using a 21-gauge MAC NV needle. The needle entry was documented. Initial aspirate was thick yellow-colored fluid. An appropriate amount of aspirate was sent for gram stain and cultures. Contrast injection demonstrated flow of contrast into the gallbladder lumen. A 0.018 inch guidewire was advanced through the needle and coiled within the gallbladder. An MAKNV assembly was then advanced over the 0.018 inch guidewire. The inner stiffener and guidewire were then removed. A 0.035 inch Amplatz guidewire was then advanced through the MAC NV sheath. Subsequently, the sheath was then removed and a 10 [place] pigtail drainage catheter was then advanced over the Amplatz guidewire with the distal end within the gallbladder. Final fluoroscopic imaging showed the catheter in satisfactory position with multiple gallstones. The catheter was attached to a drainage bag and sutured to the skin. Sterile dressing was applied. The patient tolerated the procedure well and was transferred in stable condition. There were no immediate complications associated with the procedure. Procedure Note Shikha Morales MD - 01/24/2024 History: 28-year-old female. Acute cholecystitis. Aborted laparoscopic cholecystectomy due to adhesions. Operators: 1.Dr. Shikha Morales, Attending Physician 2.Dr. Bonifacio Gomez, Fellow Physician Anesthesia: 1.Local anesthesia - 1 % lidocaine 2.Intravenous Conscious Sedation (Versed 3 mg and Fentanyl 150 mcg). Procedure: 1.Limited ultrasound evaluation of gall bladder. 2.Ultrasound and fluoroscopic guided placement of 10 [place]ruguayan pigtail drainage catheter in the gall bladder. Procedure in Detail: The procedure including risks and benefits were explained to the patient/proxy in detail, and informed consent was obtained. The patient was placed in a supine position on the procedure table, and a book illustrator film of the abdomen was obtained which wasunremarkable. The limited USG evaluation demonstrated thickened gallbladder wall with stones within the gallbladder lumen.. The region of interest was prepped and draped in a sterile manner. Patient received intravenous conscious sedation with Versed andFentanyl. Patient s vital signs were monitored by a qualified radiology nurse throughout the procedure. Local anesthesia was provided by the injection with 1% Lidocaine. Under real-time ultrasound guidance, gallbladder lumen was accessed using a 21-gauge MAC NV needle. The needle entry was documented. Initialaspirate was thick yellow-colored fluid. An appropriate amount of aspirate wassent for gram stain and cultures. Contrast injection demonstrated flow of contrast into the gallbladder lumen. A 0.018 inch guidewire was advanced through the needle and coiled within the gallbladder. An MAKNV assemblywas then advanced over the 0.018 inch guidewire. The inner stiffener and guidewire were then removed. A 0.035 inch Amplatz guidewire was then advanced through the MAC NV sheath. Subsequently, the sheath was then removed and a 10 [place] pigtail drainage catheter was then advanced over the Amplatz guidewire with the distal end within the gallbladder. Final fluoroscopic imaging showed the catheter in satisfactory position with multiple gallstones. The catheter was attached to a drainage bag and sutured to the skin. Sterile dressing was applied. The patient tolerated the procedure well and was transferred in stable condition. There wereno immediate complications associated with the procedure. Impression: Successful placement of placement of a 10 [place]ayan pigtail cholecystostomy catheter as described above. Follow up: The catheter is open for external drainage. Gently flush the catheter with 10 mL of saline three times a day. All cholecystostomy catheters should remain in place for a minimum of 4 weeks for tract maturation. The catheter can be removed after checking patency of the cystic duct under fluoroscopic guidance and after capping the catheterfor a reasonable amount of time. Recommend surgical follow-up prior to drain check. I, Dr. Shikha Morales, was present and performed/supervised the entire procedure. Moderate sedation on this patient was ordered by me, administered intravenously in my presence, and [facility] as an independent trained observer who was present throughout the procedure. The following parameters were monitored: oxygen saturation, heart rate, blood pressure, and response to care. Intra-service sedation start time was 1125 and end time was 11:55 AM during which I waspresent. Total physician intra-service sedation time was 30 minutes. For detailson pre moderate sedation and post moderate sedation patient evaluation,please review the evaluation forms in [facility]. For details on monitored clinical parameters during the intra-service sedation time, please review the procedure nurse documentation in [facility]. > Dictated by Bonifacio Gomez MD (Search Analyst) 01/23/2024 5:19 PM IShikha MD have personally reviewed and interpreted this examination/study. > Interpreting Provider: Shikha Morales MD on 01/23/2024 6:06 PM Abeba MOYA IR ORDERABLES * CULTURE FUNGUS OTHER+FUNGUS SMEAR (01/23/2024 11:48 AM CDT) Culture No fungus isolated ANGEL 02/17/2024 9:50 AM CDT [facility] Fungus Stain No yeast or hyphae seen 02/17/2024 9:50 AM CDT [facility] Microbiology PERITONEAL FLUID / Unknown Collection / Unknown 01/23/2024 11:48 AM CDT 01/23/2024 12:01 PM CDT Hui Oneal MD LAB - MICROBIOLOGY O RDERABLES [facility] [address] [place] [address], [facility] [phone] * CULTURE FLUID+GRAM STAIN (01/23/2024 11:48 AM CDT) Culture No growth ANGEL 01/27/2024 5:06 AM CDT [facility] Gram Stain Moderate Polymorphonuclear cells 01/27/2024 5:06 AM CDT [facility] Gram Stain Rare No organisms seen 01/27/2024 5:06 AM CDT [facility] Fluid PERITONEAL FLUID / Unknown Collection / Unknown 01/23/2024 11:48 AM CDT 01/23/2024 12:00 PM CDT Hui Oneal MD LAB - MICROBIOLOGY O JUAN J Performing Organization Address [facility] Co de Phone Number [facility] [address] [place] [address] [phone] * CULTURE AFB+SMEAR (01/23/2024 11:48 AM CDT) Culture No acid-fast bacillus isolated 03/02/2024 10:19 AM CDT [facility] AFB Smear No acid-fast bacilli seen 03/02/2024 10:19 AM CDT [facility] Microbiology PERITONEAL FLUID / Unknown Collection / Unknown 01/23/2024 11:48 AM CDT 01/23/2024 12:01 PM CDT Hui Oneal MD LAB - MICROBIOLOGY O JUAN J Performing Organization Address [facility] Co de Phone Number [facility] [address] [place] [address], [facility] [phone] * CULTURE ANAEROBE (01/23/2024 11:48 AM CDT) Culture No anaerobic organisms isolated ANGEL 01/28/2024 1:06 PM CDT [facility] Microbiology PERITONEAL FLUID / Unknown Collection / Unknown 01/23/2024 11:48 AM CDT 01/23/2024 12:01 PM CDT Hui Oneal MD LAB - MICROBIOLOGY O JUAN J Performing Organization Address City/[facility] Co de Phone Number [facility] [address] [place] [address], [facility] [phone] * (ABNORMAL) PT-INR (01/23/2024 9:17 AM CDT) Only the most recent of2 resultswithin the time period is included. PT 14.7 12.1 - 14.8 sec 01/23/2024 9:44 AM CDT [facility] INR 1.2(H) 0.9 - 1.1 01/23/2024 9:44 AM CDT [facility] Blood BLOOD SPECIMEN / Unknown Lab Venipuncture / Unknown 01/23/2024 9:17 AM CDT 01/23/2024 9:28 AM CDT Narrative [facility] - 01/23/2024 9:44 AM CDT Conventional Warfarin Anticoagulant Therapy: INR Reference Range: 2.0-3.0 Intensive Warfarin Anticoagulant Therapy: INR Reference Range: 2.5-3.5 Shikha Morales MD LAB - COAGULATION ORDERABLES [facility] [address] [place] [address] * (ABNORMAL) BASIC METABOLIC PANEL (CALCIUM TOTAL) (01/23/2024 3:38 AM CDT) Only the most recent of3 resultswithin the time period is included. Glucose 128(H) 70 - 105 mg/dL 01/23/2024 4:33 AM [facility] Sodium 137 136 - 145 mmol/L 01/23/2024 4:33 AM T [facility] Potassium 4.0 3.5 - 5.1 mmol/L 01/23/2024 4:33 AM [facility] Chloride 110(H) 98 - 107 mmol/L 01/23/2024 4:33 AM [facility] CO2 22 22 - 29 mmol/L 01/23/2024 4:33 AM [facility] Calcium 8.6 8.4 - 10.4 mg/dL 01/23/2024 4:33 AM [facility] Anion Gap 5(L) 6 - 16 mmol/L 01/23/2024 4:33 AM [facility] BUN 4(L) 5.3 - 18.7 mg/dL 01/23/2024 4:33 AM [facility] Creatinine 0.70 0.57 - 1.11 mg/dL 01/23/2024 4:33 AM [facility] eGFR by CKD-EPI >90 >=90 mL/min/1.7 3 m2 01/23/2024 4:33 AM [facility] Blood BLOOD SPECIMEN / Unknown Lab Venipuncture / Unknown 01/23/2024 3:38 AM CDT 01/23/2024 3:58 AM CDT Hui Oneal MD LAB - CHEMISTRY PAPA Reeves Organization Address City/State/ZIP Co de Phone Number [facility] [address] [place], [place] [id number] * ETT LINE PERFORMABLE (01/22/2024 1:51 PM CDT) Narrative Kenna Chong APRN-CRNA - 01/22/2024 1:51 PM CDT Kenna Chong APRN-CRNA 01/22/2024 1:51 PM Endotracheal Tube Placement: Patient Location: OR. Intubation Event Date/Time: 01/22/2024 1:23 PM Procedure: intubation (46409) Procedure Section: Induction: standard IV Patient Position: ramp/troop pillow, sniffing and supine Mask Ventilation: easy. Blade Type: Kristina Blade Size: 3 Laryngoscopy View: grade 1 (full cords) Intubation Adjuncts: stylet Tube: endotracheal tube Placement: oral Tube type: cuff - inflated Tube Size (MM): 7 Depth of Insertion (CM): 22 Measured From: teeth Cuff volume (mL): 8 Cuff Inflated With: air Number of Attempts: 1. Placement Verified By: direct visualization, bilateral breath sounds, chest auscultation and CO2 monitor Tube secured with: adhesive tape. Dentition unchanged? Yes Difficult Airway? No. Procedure Start Time: 01/22/2024 1:23 PM. Staff Section Anesthesia Provider: Kenna Chong APRN-CRNA Provider #1: Yashira Velez, Performed the procedure. Additional Comments: Atraumatic intubation. No damage to teeth, gums, mouth, lip. Wally Maya MD GENERAL ANESTHESIA O RDERABLES * HCG BETA BLOOD QUANTITATIVE (01/21/2024 5:35 PM CDT) Only the most recent of2 resultswithin the time period is included. hCG Quantitative <2.42 mIU/mL 01/21/20 24 6:15 PM CDT [facility] Blood BLOOD SPECIMEN / Unknown Lab Venipuncture / Unknown 01/21/2024 5:35 PM CDT 01/21/2024 5:41 PM CDT Narrative [facility] - 01/21/2024 6:15 PM CDT hCG Reference Range, mIU/mL: Non Females 0-6.0 Perimenopausal Females ages 41-55* 0-7.7 Postmenopausal Females age >55* 0-14 Females, Weeks after Last Menstrual Period 0.2-1 week 5-50 1 - 2 weeks 50-500 2 - 3 weeks 100-5000 3 - 4 weeks 500-10,000 4 - 5 weeks 1000-50,000 5 - 6 weeks 10,000-100,000 6 - 8 weeks 15,000-200,000 2 - 3 months 10,000-100,000 Trophoblastic Disease >100,000 *In higher than expected hCG in females > age 40, a serum FSH >20 IU/L makes unlikely. Hui Oneal MD LAB - CHEMISTRY PAPA TORIBIO [facility] [address] [place] [place] [id number] * CARDIAC RHYTHM STRIP ORDER (02/01/2023 4:58 PM CDT) Only the most recent of3 resultswithin the time period is included. Narrative 02/01/2023 4:58 PM CDT Ordered by an unspecified provider. Scanned Document CARDIAC SERVICES ORD ERABLES * ETT LINE PERFORMABLE (01/30/2023 7:41 AM CDT) Narrative Miranda Chen APRN-CRNA - 01/30/2023 7:41 AM CDT Miranda Chen APRN-CRNA 01/30/2023 7:43 AM Endotracheal Tube Placement: Patient Location: OR. Intubation Event Date/Time: 01/30/2023 7:31 AM Procedure: intubation ([id number]). Procedure Section: Sedation: under general anesthesia. Indications for Airway Management: anesthesia Procedure pretreatments used? No Induction: standard IV Patient Position: sniffing Mask Ventilation: easy. Blade Type: Kristina Blade Size: 4 Laryngoscopy View: grade 2 (partial cords) Intubation Adjuncts: stylet Tube: endotracheal tube Placement: oral Tube type: cuff - inflated Tube Size (MM): 7 Depth of Insertion (CM): 21 Cuff volume (mL): 5 Cuff Inflated With: air Number of Attempts: 1. Placement Verified By: direct visualization, bilateral breath sounds, chest auscultation, CO2 monitor and CO2 detector Tube secured with: adhesive tape and other-please comment (clear plastic tape). Dentition unchanged? Yes Difficult Airway? No. Procedure Start Time: 01/30/2023 7:31 AM. Procedure End Time: 01/30/2023 7:35 AM. Procedure Total Time: 4 minutes. Staff Section Anesthesia Provider: Miranda Chen APRN-MED, Performed the procedure Ary Her MD GENERAL ANESTHESIA O RDERABLES * PATHOLOGY TISSUE EXAM (STL) (11/21/2022 10:56 PM CDT) Only the most recent of2 resultswithin the time period is included. Case Report Surgical Pathology Report Case: [id number] Authorizing Provider: Ary Gray MD Collected: 11/21/2022 10:56 PM Ordering Location: [address] SURGICAL Received: 11/22/2022 09:00 AM Pathologist: Ary Dumont MD Specimen: Cyst, ovarian cyst 11/23/2022 9:48 AM CDT [facility] Final Diagnosis Ovary, cyst, excision - Follicle cyst 11/23/2022 9:48 AM [facility] Clinical History The patient is a 27-year-old woman. Operative procedure: diagnostic laparoscopy; 4 cm ovarian cyst excised. 11/23/2022 9:48 AM CDT [facility] Gross Description The specimen is identified with patient's name and date of . Received in formalin, specimen A , ovarian cyst is an aggregate of armenta to pink-armenta fibromembranous tissues, 2.2 x 2.1 x 0.3 cm. Entirely submitted in cassette A1. LJ 11/23/2022 9:48 AM CDT [facility] Microscopic Description Microscopic examination substantiates the above diagnosis. 11/23/2022 9:48 AM CDT [facility] Pathologist Location at [facility] 11/23/2022 9:48 AM CDT [facility] Disclaimer All histochemical and/or immunohistochemical results are interpreted with controls that demonstrate appropriate staining reactions before reporting results. Note on use of immunocytochemistry reagents: This test was developed and its performance characteristic determined by [facility], Department of Laboratory Medicine. It has not been cleared or approved by the U.S. Food and Drug Administration (FDA). The FDA has determined that such clearance or approval is not necessary. The test is used for clinical purpose. It should not be regarded as investigational or for research. This laboratory is certified to perform high complexity testing. The performance characteristics of the IHC/ANA MARIA assays have been validated on formalin-fixed paraffin embedded tissues only. The assays have not been validated on decalcified tissues. Results should be interpreted with caution. 11/23/2022 9:48 AM CDT [facility] Embedded Images 11/23/2022 9:48 AM CDT [facility] Pathology/Cytolo gy CYST TISSUE / Unknown 11/21/2022 10:56 PM CDT 11/22/2022 9:00 AM CDT Ary Gray MD LAB - PATHOLOGY/CYT OLOGY ORDERABLES [facility] [address] [place], [place] [id number] * ETT LINE PERFORMABLE (11/21/2022 9:54 PM CDT) Narrative Surjit Baxter APRN-CRNA - 11/21/2022 9:54 PM CDT Surjit Baxter APRN-CRNA 11/21/2022 9:54 PM Endotracheal Tube Placement: Patient Location: OR. Intubation Event Date/Time: 11/21/2022 9:40 PM Procedure: intubation ([id number]). Procedure Section: Sedation: under general anesthesia. Indications for Airway Management: anesthesia Induction: standard IV Patient Position: sniffing Mask Ventilation: easy. Blade Type: Kristina Blade Size: 4 Laryngoscopy View: grade 1 (full cords) Tube: endotracheal tube Placement: oral Tube type: cuff - inflated Tube Size (MM): 7 Depth of Insertion (CM): 21 Measured From: lips Cuff Inflated With: air Number of Attempts: 1. Placement Verified By: direct visualization, bilateral breath sounds and CO2 monitor Tube secured with: adhesive tape. Dentition unchanged? Yes Difficult Airway? No. Procedure Start Time: 11/21/2022 9:40 PM. Staff Section Anesthesia Provider: Surjit Baxter APRN-PRIMARY CLASS TEACHER, Performed the procedure Provider #1: Bryan Patel MD. Bryan Patel MD GENERAL ANESTHESIA ORDERABLES * US PELVIS W TRANSVAG W DOP NON OB (11/21/2022 3:06 PM CDT) Anatomical Region Laterality Modality Pelvis Ultrasound 11/21/2022 3:15 PM CDT Narrative 11/21/2022 3:16 PM CDT PROCEDURE: US PELVIS W TRANSVAG W DOP NON OB, DATE/TIME OF EXAM: 11/21/2022 3:06 PM, LOCATION [facility] INDICATION: R10.2: Pelvic and perineal pain Pelvic ultrasound, transabdominal and transvaginal views HISTORY: Right lower quadrant pain and history of ovarian torsion. The uterus measures 7.9 cm in sagittal dimensions. The endometrial stripe is grossly normal and measures 0.3 cm in thickness. The right ovary measures 5.1 cm. A 4.3 cm right ovarian cyst is present. There is normal color flow and spectral waveforms. The left ovary measures 4.0 cm. Normal color flow and spectral waveforms are present. There is a trace amount of free pelvic fluid. > Interpreting Provider: Rock Tinajero MD on 11/21/2022 3:16 PM Procedure Note Rock Tinajero MD - 11/21/2022 PROCEDURE: US PELVIS W TRANSVAG W DOP NON OB, DATE/TIME OF EXAM: 11/21/2022 3:06 PM, LOCATION [facility] INDICATION: R10.2: Pelvic and perineal pain Pelvic ultrasound, transabdominal and transvaginal views HISTORY: Right lower quadrant pain and history of ovarian torsion. The uterus measures 7.9 cm in sagittal dimensions. The endometrialstripe is grossly normal and measures 0.3 cm in thickness. The right ovary measures 5.1 cm. A 4.3 cm right ovarian cyst is present. There is normal color flow and spectral waveforms. The left ovary measures 4.0 cm. Normal color flow and spectral waveforms are present. There is a trace amount of free pelvic fluid. > Interpreting Provider: Rock Tinajero MD on 11/21/2022 3:16 PM Gila Duran APRN-YAMILA US ORDERABLES * HCG URINE QUALITATIVE (11/21/2022 1:48 PM CDT) Pathologist [facility] hCG Qualitative Urine Negative Negative 11/21/2022 1:56 PM CDT [facility] Urine URINE / Unknown Collection / Unknown 11/21/2022 1:48 PM CDT 11/21/2022 1:51 PM CDT Gila Duran APRN-YAMILA LAB - URINALYSI S ORDERABLES Performing Organization Address City/[facility]/ZIP Co de Phone Number [facility] [address] [place] [id number] * CARDIAC EKG ORDER (08/23/2022 9:15 AM CDT) Narrative 08/23/2022 9:15 AM CDT Ordered by an unspecified provider. Scanned Document CARDIAC SERVICES ORD ERABLES * TROPONIN I (08/21/2022 2:15 PM CDT) [facility] Troponin I <0.010 <0.038 ng/mL 08/21/2022 2:53 PM CDT [facility] Blood BLOOD SPECIMEN / Unknown Venipuncture / Unknown 08/21/2022 2:15 PM CDT 08/21/2022 2:27 PM CDT Paige Aguilar DO LAB - CHEMISTRY ORDE RABKALIA [facility] [address] [place] [id number] * CT BRAIN - Stroke (08/21/2022 1:58 PM CDT) Anatomical Region Laterality Modality Head Computed Tomogra phy 08/21/2022 2:40 PM CDT Impressions 08/21/2022 2:41 PM CDT IMPRESSION: Unremarkable brain Findings were called by Dr. Rice to Dr. Aguilar at unreported time as PACS was nonfunctional on 08/21/2022. Readback confirmation was obtained. > Interpreting Provider: Adri Rice MD on 08/21/2022 2:41 PM Narrative 08/21/2022 2:41 PM CDT PROCEDURE: CT BRAIN STROKE DATE/TIME OF EXAM: 08/21/2022 2:10 PM CLINICAL INFORMATION: None relevant/not provided if blank. 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 TECHNIQUE: Noncontrast CT brain was performed utilizing standard protocol. Viz AI was used for hemorrhage detection, although the results may not have been utilized in imaging interpretation. CT dose reduction technique was used, including Automated Exposure Control. FINDINGS: There is no CT evidence for acute ischemia, mass or hemorrhage. No extra-axial fluid collection, midline shift or hydrocephalus. Sulci and ventricles are appropriate in size for age. The paranasal sinuses and mastoid air cells are clear. Procedure Note Adri Rice MD - 08/21/2022 PROCEDURE: CT BRAIN STROKE DATE/TIME OF EXAM: 08/21/2022 2:10 PM CLINICAL INFORMATION: None relevant/not provided if blank. 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 TECHNIQUE: Noncontrast CT brain was performed utilizing standard protocol. Viz AIwas used for hemorrhage detection, although the results may not have been utilized in imaging interpretation. CT dose reduction technique was used, including Automated ExposureControl. FINDINGS: There is no CT evidence for acute ischemia, mass or hemorrhage. No extra-axial fluid collection, midline shift or hydrocephalus. Sulci and ventricles are appropriate in size for age. The paranasal sinuses and mastoid air cells are clear. IMPRESSION: Unremarkable brain Findings were called by Dr. Rice to Dr. Aguilar at unreported time as PACS was nonfunctional on 08/21/2022. Readback confirmation wasobtained. > Interpreting Provider: Adri Rice MD on 08/21/2022 2:41 PM Paige Aguilar DO CT ORDERABLES * ETT LINE PERFORMABLE (03/04/2022 10:17 AM CDT) Narrative Robert Soliman APRN-CRNA - 03/04/2022 10:17 AM CDT Robert Soliman APRN-CRNA 03/04/2022 10:26 AM Endotracheal Tube Placement: Patient Location: OR. Intubation Event Date/Time: 03/04/2022 10:17 AM Procedure: intubation ([id number]). Procedure Section: Sedation: under general anesthesia. Indications for Airway Management: anesthesia Procedure pretreatments used? No Induction: standard IV Patient Position: sniffing and supine Mask Ventilation: easy. Blade Type: Kristina Blade Size: 3 Laryngoscopy View: grade 1 (full cords) Intubation Adjuncts: stylet Tube: endotracheal tube Placement: oral Tube type: cuff - inflated Tube Size (MM): 7 Depth of Insertion (CM): 21 Measured From: lips Cuff Inflated With: air Number of Attempts: 1. Placement Verified By: direct visualization, bilateral breath sounds, chest auscultation and CO2 monitor Tube secured with: adhesive tape. Dentition unchanged? Yes Difficult Airway? No. Procedure Start Time: 03/04/2022 10:17 AM. Staff Section Anesthesia Provider: Robert Soliman APRN-CRNA, Performed the procedure Rohan Jackson MD GENERAL ANESTHESIA O RDERABLES * US PELVIS W TRANSVAG NON OB (03/03/2022 8:59 PM CDT) Anatomical Region Laterality Modality Pelvis Ultrasound 03/03/2022 8:45 PM CDT Impressions 03/04/2022 5:46 PM CDT IMPRESSION: 1.While normal blood flow is noted in bilateral ovaries, the right ovary is significantly larger compared to the left ovary and multiple peripherally oriented cyst. Ovarian torsion/incomplete torsion is a concern. Gynecological consultation is recommended. 2.Suspected 3 cm ovoid heterogeneous mass lateral to the ovary, not definitively identified in the concurrent CT. This may represent part of the normal ovary. These findings were discussed in detail with the patient's care provider, Dr. Alonso by Dr. Farias via telephone at 8:48 PM on 03/03/2022 with readback comprehension and verification. > Dictated by Jaqueline Farias MD (president + publisher). IJing MD have personally reviewed and interpreted this examination/study. > Interpreting Provider: Jing Rios MD on 03/04/2022 5:46 PM Narrative 03/04/2022 5:46 PM CDT PROCEDURE: US PELVIS W TRANSVAG NON OB, DATE/TIME OF EXAM: 03/03/2022 7:55 PM, LOCATION [facility] INDICATION: R10.31: RLQ abdominal pain, rule out ovarian torsion, 26-year-old female, LMP 02/24/2022 (menstruating now) COMPARISON: CT abdomen pelvis with contrast dated 03/03/2022. FINDINGS: Transabdominal: Uterus: 7.5 cm in length Right ovary: 7.5 x 2.9 x 4.7 cm (volume 53.9 mL) Left ovary: 3.3 x 2.0 x 2.2 cm (volume 7.9 mL) Transvaginal: There is a 3.3 x 2.8 x 3.6 cm right ovarian cyst. There is a 3 cm ovoid heterogeneous mass lateral to the right ovary, with scattered vascularity (image [id number]). The ovarian cysts are oriented peripherally. The left ovary appears normal for the patient's age. Multiple follicles are seen in both ovaries. Normal blood flow is noted in bilateral ovaries. The uterus appears normal. The endometrial bilayer thickness measures 3 mm, which is within normal limits for phase of menstrual cycle. A small amount of pelvic fluid. Procedure Note Jing Rios MD - 03/04/2022 PROCEDURE: US PELVIS W TRANSVAG NON OB, DATE/TIME OF EXAM: 03/03/2022 7:55 PM, LOCATION [facility] INDICATION: R10.31: RLQ abdominal pain, rule out ovarian torsion, 26-year-old female, LMP 02/24/2022 (menstruating now) COMPARISON: CT abdomen pelvis with contrast dated 03/03/2022. FINDINGS: Transabdominal: Uterus: 7.5 cm in length Right ovary: 7.5 x 2.9 x 4.7 cm (volume 53.9 mL) Left ovary: 3.3 x 2.0 x 2.2 cm (volume 7.9 mL) Transvaginal: There is a 3.3 x 2.8 x 3.6 cm right ovarian cyst. There is a 3 cm ovoid heterogeneous mass lateral to the right ovary, with scatteredvascularity (image [id number]). The ovarian cysts are oriented peripherally. The leftovary appears normal for the patient's age. Multiple follicles are seen inboth ovaries. Normal blood flow is noted in bilateral ovaries. The uterus appears normal. The endometrial bilayer thickness measures 3mm, which is within normal limits for phase of menstrual cycle. A smallamount of pelvic fluid. IMPRESSION: 1.While normal blood flow is noted in bilateral ovaries, the right ovaryis significantly larger compared to the left ovary and multipleperipherally oriented cyst. Ovarian torsion/incomplete torsion is a concern. Gynecological consultation is recommended. 2.Suspected 3 cm ovoid heterogeneous mass lateral to the ovary, not definitively identified in the concurrent CT. This may represent part of the normal ovary. These findings were discussed in detail with the patient's careprovider, Dr. Alonso by Dr. Farias via telephone at 8:48 PM on 03/03/2022 with readback comprehension and verification. > Dictated by Jaqueline Farias MD (president + publisher). Jing Logan MD have personally reviewed and interpreted this examination/study. > Interpreting Provider: Jing Rios MD on 25:46 PM Kevin Alonso MD US ORDERABLES * CT ABDOMEN PELVIS W CONTRAST (03/03/2022 1:48 PM CDT) Anatomical Region Laterality Modality Abdomen, Pelvis Computed Tomogra phy 03/03/2022 1:57 PM CDT Impressions 03/03/2022 2:17 PM CDT Impression: 1.No acute process identified in the abdomen or pelvis. 2.Multiple gallstones and some of them shows gas within the stones. 3.Large right adnexal cyst as above. > Dictated by Lambert Leung D.O. (Search Analyst) Jing Logan MD have personally reviewed and interpreted this examination/study. > Interpreting Provider: Jing Rios MD on 03/03/2022 2:17 PM Narrative 03/03/2022 2:17 PM CDT PROCEDURE: CT ABDOMEN PELVIS W CONTRAST, DATE/TIME OF EXAM: 03/03/2022 1:50 PM, LOCATION [facility] INDICATION: R10.31: RLQ abdominal pain ADDITIONAL CLINICAL INFORMATION: Ordering Provider Reason For Exam: RLQ pain, eval for appendicitis Technologist Note: RIGHT SIDED LOWER ABDOMINAL/PELVIC PAIN THAT RADIATES TO THE BACK. REPORTS SAME PAIN 1 MONTH AGO.CURRENTLY MENSTRUATING. COMPARISON: None. TECHNIQUE: CT of the abdomen and pelvis was performed following the uneventful administration of 100 mL of Isovue 370 intravenous contrast according to standard protocol. Findings: Lower Chest: Normal. Liver: Normal. Gallbladder and Bile Ducts: There are 3 hypoattenuating foci within the gallbladder lumen, which may represent cholesterol stones. There is no evidence of pericholecystic fluid, wall thickening, or surrounding inflammatory changes. The intrahepatic and extrahepatic bile ducts are nondilated. Spleen: Normal. Pancreas: Normal. Adrenals: Normal. Kidneys: Normal. Gastrointestinal: The stomach and visualized loops of large and small bowel are unremarkable. Normal appendix. Mesentery/Peritoneum/Retroperitoneum: Normal. Bladder: Normal. Reproductive Organs: The uterus enhances normally. The left adnexa is unremarkable. There is a large right hypoattenuating ovarian cyst measuring approximately 4.3 x 4.2 x 3.9 cm in AP, TV, CC axis (series 3, image 117; series 4, image 95). The patient is reportedly currently menstruating and this may represent a corpus luteal cyst. Vasculature: No vascular abnormality is present. Bones: Bone windows demonstrate no suspicious lytic or blastic lesions. The visible osseous structures are intact. Soft tissues: Normal. Procedure Note Jing Rios MD - 03/03/2022 PROCEDURE: CT ABDOMEN PELVIS W CONTRAST, DATE/TIME OF EXAM: 03/03/2022 1:50 PM, LOCATION [facility] INDICATION: R10.31: RLQ abdominal pain ADDITIONAL CLINICAL INFORMATION: Ordering Provider Reason For Exam: RLQ pain, eval for appendicitis Technologist Note: RIGHT SIDED LOWER ABDOMINAL/PELVIC PAIN THATRADIATES TO THE BACK. REPORTS SAME PAIN 1 MONTH AGO.CURRENTLY MENSTRUATING. COMPARISON: None. TECHNIQUE: CT of the abdomen and pelvis was performed following the uneventful administration of 100 mL of Isovue 370 intravenous contrast according to standard protocol. Findings: Lower Chest: Normal. Liver: Normal. Gallbladder and Bile Ducts: There are 3 hypoattenuating foci within the gallbladder lumen, which may represent cholesterol stones. There is no evidence of pericholecystic fluid, wall thickening, or surrounding inflammatory changes. The intrahepatic and extrahepatic bile ducts are nondilated. Spleen: Normal. Pancreas: Normal. Adrenals: Normal. Kidneys: Normal. Gastrointestinal: The stomach and visualized loops of large and small bowel areunremarkable. Normal appendix. Mesentery/Peritoneum/Retroperitoneum: Normal. Bladder: Normal. Reproductive Organs: The uterus enhances normally. The left adnexa is unremarkable. There irma large right hypoattenuating ovarian cyst measuring approximately 4.3 x4.2 x 3.9 cm in AP, TV, CC axis (series 3, image 117; series 4, image 95).The patient is reportedly currently menstruating and this may represent a corpus luteal cyst. Vasculature: No vascular abnormality is present. Bones: Bone windows demonstrate no suspicious lytic or blastic lesions. The visible osseous structures are intact. Soft tissues: Normal. Impression: 1.No acute process identified in the abdomen or pelvis. 2.Multiple gallstones and some of them shows gas within the stones. 3.Large right adnexal cyst as above. > Dictated by Lambert Leung D.O. (Search Analyst) I, Jing Rios MD have personally reviewed and interpreted this examination/study. > Interpreting Provider: Jing Rios MD on :17 PM Mikayla Sal PA-C CT ORDERABLES * (ABNORMAL) URINALYSIS REFLEX TO MICROSCOPIC NO CULTURE (03/03/2022 11:06 AM CDT) Color UA Yellow Straw, Yellow 03/03/2022 11:36 AM CDT [facility] Clarity UA Clear Clear 03/03/2022 11:36 AM CDT [facility] Specific [place] UA 1.020 1.005 - 1.030 03/03/2022 11:36 AM [facility] pH UA 6.0 5.0 - 8.0 pH 03/03/2022 11:36 AM [facility] Protein UA Negative Negative 03/03/2022 11:36 AM [facility] Glucose UA Negative Negative 03/03/2022 11:36 AM [facility] Ketone UA Negative Negative 03/03/2022 11:36 AM [facility] Bilirubin UA Negative Negative 03/03/2022 11:36 AM [facility] Blood UA 2+(A) Negative 03/03/2022 11:36 AM [facility] Nitrite UA Negative Negative 03/03/2022 11:36 AM [facility] Leukocyte Esterase Trace(A) Negative 03/03/2022 11:36 AM [facility] Urobilinogen UA Negative Negative mg/dL 03/03/2022 11:36 AM [facility] RBC UA 6-10(A) None Seen, 0-2, 3-5 /HPF 03/03/2022 11:36 AM [facility] WBC UA 0-5 None Seen, 0-5 /HPF 03/03/2022 11:36 AM [facility] Squamous Epithelial Cells UA 0-2 None Seen, 0-2, 3-5 /HPF 03/03/2022 11:36 AM [facility] Urine URINE SPECIMEN OBTAINED BY CLEAN CATCH PROCEDURE / Unknown Collection / Unknown 03/03/2022 11:06 AM CDT 03/03/2022 11:12 AM [facility] - 03/03/2022 11:36 AM CDT Mikayla Sal PA-C LAB - URINALYSIS ORD ERABLES [address] [address], [facility] [phone] * LACTIC ACID BLOOD (03/03/2022 10:02 AM CDT) Lactic Acid-Stat 1.1 <=2.0 mmol/L 03/03/2022 10:33 AM CDT [facility] Blood BLOOD SPECIMEN / Unknown Venipuncture / Unknown 03/03/2022 10:02 AM CDT 03/03/2022 10:08 AM CDT Mikayla Sal PA-C LAB - CHEMISTRY PAPA TORIBIO [facility] [address] [place] [address], [facility] [phone] Care Teams Audio Installer Relationship Specialty Start Date End Date Daisy Hanks, SCRAP HOIST OPERATOR-INFO ANALYST [address] [address] PCP - General Nurse Practitioner 02/06/24
--- OUTSIDE RECORDS SUMMARY | 2024-06-18 14:22 | XMS_ITS | Referral Summary ---
Author Organization [facility] Address [address] [facility] [place] [address] Care Team Providers Care Optical Designer Name Role Phone Daisy Hanks Arjun REYES-YAMILA Primary Care Provider Source Comments [facility],non-owned Affiliates and Associated Physician Practices is amultiple site organization consisting of ambulatory clinics and hospital sitesin [place], [place], [place] and [place]. This disclosure is being madepursuant to the Care Everywhere program and may not contain all information available regarding this patient. Last updated 18.[facility] Versie Christian Companion Allergies Active Allergy Reactions Criticality Noted Date [...] care, and heating? Not very hard 03/13/2024 [facility] of Occupat ional Health - Occupational Stress [...] place to sleep or slept in a correction (including now)? Patient declined 01/21/2024 Housing Stability [...] any time in the past 12 m [facility], were you homeless or living in a correction (including now)? No 03/13/2024 Sex and Gender Information Value Date Recorded Sex Assigned at Not on file Gender Identity Not on file Sexual Orientation Not on file Last Filed Vital Signs Vital Sign Reading Time Taken Comments Blood Pressure 131/80 03/13/2024 7:27 AM TRANSVERSE ABDOMINAL MUSCLE SURGEON Pulse 75 03/13/2024 7:27 AM TRANSVERSE ABDOMINAL MUSCLE SURGEON Temperature 36.7 C (98 F) 03/13/2024 7:27 AM TRANSVERSE ABDOMINAL MUSCLE SURGEON Respiratory Rate 18 03/13/2024 7:27 AM TRANSVERSE ABDOMINAL MUSCLE SURGEON Oxygen Saturation 100% 03/13/2024 7:27 AM TRANSVERSE ABDOMINAL MUSCLE SURGEON Inhaled Oxygen Concentration - - Weight 131.5 kg (290 lb) 03/12/2024 10:39 AM TRANSVERSE ABDOMINAL MUSCLE SURGEON Height 167.6 cm (5' 6 ) 03/12/2024 10:39 AM TRANSVERSE ABDOMINAL MUSCLE SURGEON Body Mass Index 46.81 03/12/2024 10:39 AM TRANSVERSE ABDOMINAL MUSCLE SURGEON Functional Status Functional Status Response Date of Assess ment Is person deaf or have serious hearing difficult y? No 03/13/2024 Is person blind or have serious difficulty seein g? No 03/13/2024 Does person have serious dif ficulty walking/climbing stairs? No 03/13/2024 Does person have difficulty dressing/bathing? No 03/13/2024 Does person have difficulty doing errands alone? No 03/13/2024 Cognitive Status Response Date of Assessm ent Does person have difficulty concentrating/remembering/making decisions? No 03/13/2024 Plan of Treatment Not on file Advance Directives * Full Code (Latest Code [...] 1:25 AM 03/04/2022 7:19 PM Care Teams Optical Designer Relationship Specialty Start Date End Date Daisy Hanks, LIFE SPECIALIST-QUILL WINDER [address] [id number] PCP - General Nurse Practitioner 02/06/24
--- OUTSIDE RECORDS SUMMARY | 2024-06-18 14:23 | XMS_ITS | Data Portability ---
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 Patient will come back in a year unless there are new symptoms. Not available 12/14/2020 14:03:36 02/26/2024 02/26/2024 Annual gynecological exam performed. Patient will come back in a year unless there are new symptoms. [email or web address] Not available 02/26/2024 10:19:20 Plan of Treatment Reminders Order Date Submit Date Provider Last Modified By Organization Details Last Modified Time Details Appointments None recorded. Lab 17-hydroxyp rogesterone , QN, serum 2023 [facility]), [address] [place], [address], 23:38:27 dhea-sulfat e, serum 2023 [facility] system (Lab), [address], [place], [address], 23:38:27 estradiol, serum 2023 [facility] (Lab), [address] [place], [address], 23:38:23 FSH (follicle-s timulating hormone), serum 2023 [facility] system (Lab), [address], [place], [address], 4 23:38:24 HbA1c (hemoglobin A1c), blood 2023 [facility] system (Lab), [address], [place], [address], 4 23:38:26 lh (luteinizin g hormone), serum 2023 [facility] system (Lab), [address], [place], [address], 4 23:38:24 progesteron e, serum 2023 [facility] system (Lab), [address], [place], [address], 4 23:38:26 prolactin, serum 2023 [facility] system (Lab), [address], [place], [address], 4 23:38:24 shbg (sex hormone-bin ding globulin), serum 2023 [facility] system (Lab), [address], [place], [address], 4 23:38:25 TSH, serum or plasma 2023 [facility] system (Lab), [address], [place], [address], 4 23:38:25 testosteron e free/testos terone total, ratio, serum 2023 [facility] system (Lab), [address], [place], [address], 23:38:27 test, urine 2023 024 [place], [address], [place], [address], 14:54:26 test, urine 2020 021 [place], [address], [place], [address], 14:11:31 Referral None recorded. Procedures None recorded. Surgeries None recorded. Imaging None recorded. Medication Orders Nexplanon 68 mg subdermal implant 2023 024 [id number], [address], [place], [id number], 14:54:23 Patient TargetsNo targets recorded. Patient InstructionsNo instructions recorded. Reason for Referral None Reported. Results Created Date Observation Date Name Description Value Unit Range Abnormal Flag Note LastModifiedBy Organization Detail LastModifiedTime 12/17/19 21 12/16/2020 pregn estrella test, urine HCG negati ve Not Available [place] [address], [place], [address], 12/16/2020 14:11:12 12/16/19 24 12/16/2023 pregn estrella test, urine HCG negati ve Not Available [place] [address], [place], [address], 12/16/2023 14:53:21 02/26/20 24 02/26/2024 ESTRA DIOL estradiol 20.0 pg/mL This assay was perfo rmed using [employer] ratio n reage nts and test kits. Value s obtai arnaldo with other assay metho ds or kits canno t be used inter walden eably . Femal e Estra diol Range s: Folli cular phase 12.4- 233 pg/mL Ovula tion phase 41.0- 398 pg/mL Lutea l phase 22.3- 341 pg/mL Postm enopa usal <5-13 8 pg/mL Healt hy Pregn ant Women 1st Trime ster 154-3 243 pg/mL 2nd Trime ster 1561- 24163 pg/mL 3rd Trime ster 8525- >3000 0 pg/mL Not Available [facility] (Lab) [address] [place], [address], 03/03/2024 23:38:23 02/26/20 24 02/26/2024 PROLA CTIN prolactin, total 13.60 NG/mL 4.79-2 3.30 This assay was perfo rmed using [employer] ratio [employer] reage nts and test kits. Value s obtai arnaldo with other assay metho ds or kits canno t be used inter walden eay . Not Available [facility] (Lab) [address] [place], [address], 03/03/2024 23:38:24 02/26/20 24 02/26/2024 LH (LUTE NIZIN G HORMO NE) LH 10.0 mIU/m L This assay was perfo rmed using [employer] ratio [employer] reage nts and test kits. Value s obtai arnaldo with other assay metho ds or kits canno t be used inter walden eay . Femal es Mid-F ollic ular: 2.4-1 2.6 mIU/m L Mid-C ycle: 14.0- 95.6 mIU/m L Mid-L uteal : 1.0-1 1.4 mIU/m L Postm enopa use: 7.7-5 8.5 mIU/m L Not Available [facility] (Lab) [address] [facility], [place], [address], 03/03/2024 23:38:24 02/26/20 24 02/26/2024 FSH FSH 6.1 mIU/m L This assay was perfo rmed using [employer] ratio n reage nts and test kits. Value s obtai arnaldo with other assay metho ds or kits canno t be used inter walden eably . Femal es Folli cular : 3.5-1 2.5 mIU/m L Ovula tion: 4.7-2 1.5 mIU/m L Lutea l: 1.7-7 .7 mIU/m L Postm enopa use: 25.8- 134.8 mIU/m L Not Available [facility] (Lab) [address], [place], [address], 03/03/2024 23:38:24 02/26/20 24 02/26/2024 TSH, REFLE X FREE T4 TSH 3.55 uIU/m L 0.30-5 .33 Not Available [facility] (Lab) [address], [place], [address], 03/03/2024 23:38:25 02/26/20 24 02/26/2024 HUMAN SEX HORMO NE PETRA NG GLOBU LYNNETTE sex hormone binding globulin 16.4 nmole s/L 18.2-1 35.5 low Not Available [facility] (Lab) [address], [place], [address], 03/03/2024 23:38:25 02/26/20 24 02/26/2024 HEMOG LOBIN A1C hemoglobin A1C 5.2 % 0-5.6 The Ameri can Diabe dusty Assoc iatio n recom mends that a prima ry goal of thera py tim d be a HBA1C of < 7% and that physi cians jdul d reeva luate the treat ment regim en in patie nts with HBA1C value s consi stent ly > 8%. <5.7% Nicole l 5.7 - 6.4% Incre ased risk for diabe dusty >=6.5 % Diagn ostic of diabe dusty <7.0% Goal of thera py >8.0% Actio n sugge sted Not Available [facility] (Lab) [address], [place], [address], 03/03/2024 23:38:26 02/26/20 24 02/26/2024 PROGE STERO NE progesterone <0.05 NG/mL This assay was perfo rmed using [employer] ratio n reage nts and test kits. Value s obtai arnaldo with other assay metho ds or kits canno t be used inter walden eably . Femal e Proge stero ne Range s: Folli cular phase 0.06- 0.89 ng/mL Ovula tion phase 0.12- 12.00 ng/mL Lutea l phase 1.83- 23.90 ng/mL Postm enopa usal <0.05 -0.13 ng/mL Healt hy Pregn ant Women 1st Trime ster 11.0- 44.30 2nd Trime ster 25.40 -83.3 0 3rd Trime ster 58.70 -214. 00 Not Available [facility] (Lab) [address] [place], [address], 03/03/2024 23:38:26 02/26/20 24 02/26/2024 DHEA SULFA TE DHEA-sulfate 121 ug/dL Femal e Range s Age(y ) Range (ug/d L) 10-15 34-28 0 15-20 65-36 8 20-25 148-4 07 25-35 99-34 0 35-45 61-33 7 45-55 35-25 6 55-65 19-20 5 65-75 9-246 > 75 12-15 4 Not Available [facility] (Lab) [address] [place], [address], 03/03/2024 23:38:26 02/26/20 24 02/26/2024 TESTO STERO NE, FREE( DIALY SIS) AND TOTAL (LC/M S/MS) testosterone , total 20 NG/dL 2-45 For addit ional bamr jessie bustamante e refer to http: //osmani marie.que stdia gnost ics.c om/fa q/ Total Testo stero neLCM [place] Q165 (This link is being provi ded for infor robert nal/ educa mary l purpo ses only. ) This test was devel oped and its pool tical perfo rmanc e mlily cteri stics have been deter mined by [employer] ostic s Pradeep [place], [place]. It has not been clear ed or appro candido by the U.S. Food and Drug Admin istra tion. This assay has been valid ated pursu ant to the CLIA regul ation s and is used for clini sydnee purpo ses. Not Available [facility] (Lab) [address] [place], [address], 03/03/2024 23:38:27 02/26/20 24 02/26/2024 TESTO STERO NE, FREE( DIALY SIS) AND TOTAL (LC/M S/MS) testosterone , free 4.0 pg/mL 0.1-6. 4 This test was devel oped and its pool tical perfo rmanc e milly cteri stics have been deter mined by [employer] Pradeep [place], [place]. It has not been clear ed or appro candido by the U.S. Food and Drug Admin istra tion. This assay has been valid ated pursu ant to the CLIA regul ation s and is used for clini sydnee purpo ses. Perfo rming Organ izati on Infor matio n: Site ID: [id number] Name: [employer] nicol Gutierrezo ls [facility] emelina Addre ss: [id number] [facility] Only-apartments [place], [place] Direc tor: Tara Sosa MD PhD Not Available [facility] (Lab) [address] [place], [address], 03/03/2024 23:38:27 02/26/20 24 02/26/2024 17-OH PROGE STERO NE 17-hydroxypr ogesterone, lc/MS/MS 25 NG/dL Adult Femal e Refer ence Range s for 17-Hy droxy proge stero ne: Pre-M enopa usal Mid Folli cular : 23-10 2 ng/dL Pre-M enopa usal Surge : 67-34 9 ng/dL Pre-M enopa usal Mid Lutea l: 139-4 31 ng/dL Postm enopa usal Phase : < or = 45 ng/dL Pregn estrella: First Trime ster: 78-45 7 ng/dL Secon d Trime ster: 90-35 7 ng/dL Third Trime ster: 144-5 78 ng/dL This test was devel oped and its pool tical perfo rmanc e milly cteri stics have been deter mined by [facility]. It has not been clear ed or appro candido by FDA. This assay has been valid ated pursu ant to the CLIA regul ation s and is used for clini sydnee purpo ses. Perfo rming Organ izati on Infor matmary n: Site ID: [id number] Name: [employer] [facility]/Karthik valery [facility] ni[facility]ah [place] , Addre ss: [id number] [address] [place] [address] Direc tor: Mercedes valentino MD,Ph D,CASEY Not Available [facility] (Lab) [address], [place], [address], 03/03/2024 23:38:27 02/26/20 24 02/26/2024 IMAGE GUIDE D PAP, REFLE X HPV IF ASCUS ONLY image guided Pap, reflex HPV ASCUS only SEE RESULT S BELOW CASE REPOR T: Cytol ogy Gynec ologi sydnee Repor t Case: [id number] Autho tonny g Provi adam: Rafael Meade MD Colle cted: 02/25 1111 Order ing Locat ion: [place] [facility] Recei candido: 02/26 0924 First Scree n: Strut z, Willi am, CT Rescr een: Marcos en, Cassa ndra Speci men: Scree nena Pap - Image d, Cervi x STATE MENT OF ADEQU ACY: Satis facto ry for evalu ation Trans forma tion zone compo nent absen t. The absen ce of an endoc ervic al compo nent was confi rmed by an addit ional scree ner. ----- ----- ----- ----- ----- ----- ----- ----- ----- ----- ----- ----- ----- ----- ----- ----- ----- ---- FINAL DIAGN OSIS: Negat gavi for Intra epith elial Lesio n or Matt garcia (NIL) . Elect ben bagley doris d by Luis Chavez on 03/04 at 12:49 PM ----- ----- ----- ----- ----- ----- ----- ----- ----- ----- ----- ----- ----- ----- ----- ----- ----- ---- COMME NT: This speci men was revie wed by a Cytot echno logis t and/o r Patho logis t (as indic ated in this repor t) after evalu ation using the Thinp rep Imagi ng Syste m. CLINI SYDNEE INFOR MATIO N: Menst rual Statu s: LMP (if appli cable ): Clini sydnee Histo ry/Pr eviou s Pap: Type of Neopl eren (if appli cable ): Signi fican t Clini sydnee Findi ngs: Other Histo ry: Hormo vicente (if appli cable ): PAP EDUCA MARY L NOTE: The Pap Test is a scree nena test with an inher ent false negat gavi rate. Liqui d-bas ed sampl ing may decre ase, but will not elimi nilesh, false negat gavi resul ts. A negat gavi resul t does not precl ude the prese nce and/o r devel opmen t of disea se, since the prese nce of abnor mal cells in the sampl e depen ds on the locat ion of the lesio n and sampl ing techn ique. Chanda nued regul ar scree nena is the best metho d of cance r preve ntion . If repor digna cytol ogic findi ng do not corre late with physi sydnee and/o r histo rical findi ngs, furth er inves tigat ion is recom bang d, as clini dereck durand nted. Not Available [facility] (Lab) [address], [place], [address], 03/04/2024 13:53:19 Result Notes None recorded. Problems Name Problem SNOMED Code Status Onset Date Resolution Date Notes Provider Name and Address Organization Details Recorded Time Bleeding 347788455 Completed 201912/14/2020 Abnormal uterine bleeding; Recorded Elsewhere : No Locati on: [facility] So urce: EHR Chron ic: N Practic e ID: [id number] Bill able Time: 11:00:00 AM [facility] 14:04:[address] Concept Completed 201912/14/2020 Encntr for general adult medical exam w/o abnormal findings; Recorded Elsewhere : No Locati on: [facility] So urce: EHR Chron ic: N Practic e ID: [id number] Bill able Time: 11:00:00 AM [facility] 14:04:56 Contrace ption care manageme nt Completed 201712/14/2020 Encounter for contracep tive managemen t, unspecifi ed;Record ed Elsewhere : No Locati on: [facility] So urce: EHR Chron ic: N Practic e ID: [id number] Bill able Time: 10:30:00 AM [facility] 14:04:[address] Concept Completed 201712/14/2020 Encounter for surveilla nce of other contracep tives;Rec orded Elsewhere : No Locati on: [facility] So urce: EHR Chron ic: N Practic e ID: [id number] Bill able Time: 03:45:00 PM [facility] 14:04:58 Pregnanc y test negative [id number] Completed 201712/14/2020 Encounter for test, result negative; Recorded Elsewhere : No Locati on: [facility] So urce: EHR Chron ic: N Practic e ID: [id number] Damian able Time: 03:45:00 PM Sumi Alvarenga [facility] 14:04:55 Insertio n of subcutan eous contrace ptive Completed 201712/14/2020 Enctr for init prescript ion of implntbl subdermal contracep ;Practice ID: [id number] [facility]53 Problem Notes None recorded. Procedures Surgical History Date Name Laterality Status Provider Name and Address Organization Details Recorded Time 12/16/19 24 Control Implant Replacement completed Hardeep Husain MD [address], [place], [address], [facility] 12/16/2023 15:33:00 09/04/19 23 Laparoscopy completed Rubia Dickerson [facility] 12/16/2023 14:48:51 12/17/19 21 Control Implant Removal completed Elsi Lynch [facility] [address], [place], [address], [facility] 12/16/2020 14:25:34 12/17/19 21 Control Implant Insertion completed Elsi Lynch [facility] [address], [place], [address], [facility] 12/16/2020 14:27:59 05/06/19 16 Tonsillectomy [address] Rubia Dickerson [facility] 12/16/2023 14:48:59 Unlisted px ant segment eye completed Rubia Dickerson [facility] 12/16/2023 14:49:13 Imaging Results None recorded. Procedure Notes None recorded. Medical Equipment None Reported. Allergies No known drug allergies Medications Name Sig Start Date Stop Date Status Note LastModified by Organization Details LastModified Time metronida zole 500 mg tablet TAKE 1 TABLET BY MOUTH EVERY 8 HOURS FOR ABDOMINA L INFECTIO N active Not Available Not Available No t Available ciproflox acin 250 mg tablet TAKE 2 TABLETS BY MOUTH EVERY 12 HOURS active Not Available Not Available No t Available acetamino phen 500 mg tablet 12/15 completed Not Available Not Available Not Available sodium chloride 0.9 % irrigatio n solution active Not Available Not Available Not Available methocarb hunter 750 mg tablet TAKE 1 TABLET BY MOUTH EVERY 6 HOURS NEEDED FOR MUSCLE SPASMS active Not Available Not Available No t Available docusate sodium 100 mg capsule 12/15 completed Not Available Not Available Not Available estradiol 0.5 mg tablet take 1 tablet by oral route every day 12/14 completed Prescrib buck Serrano e: No Locat ion: [facility] M odify By: cfrieder ich Enco unter DateTime : 07/17/19 11:00:00 AM Not Available Not Available Not Available ibuprofen 600 mg tablet 12/15 completed Not Available Not Available Not Available ondansetr on 4 mg disintegr ating tablet DISSOLVE 1 TABLET ON THE TONGUE EVERY 6 HOURS NEEDED FOR NAUSEA AND VOMITING active Not Available Not Available No t Available rizatript an 5 mg tablet active Not Available Not Available Not Available oxycodone 5 mg tablet TAKE 1 TABLET BY MOUTH EVERY 6 HOURS NEEDED 02/25 completed Not Available Not Available Not Available Nexplanon 68 mg subdermal implant inserted 4 2023 active Not Available Not Available Not Avai lable Vitals Date Recorded Body height Body mass index (BMI) Body weight Systolic blood pressure Diastolic blood pressure Provider Name and Address Organization Details Last Updated DateTime 12/14/2020 163.83 cm 39.5 kg/m2 778384.6 1 g 104 mm[Hg] 68 mm[Hg] Sumi Alvarenga [facility] 14:04:37 Date Recorded Body height Body mass index (BMI) Body weight Systolic blood pressure Diastolic blood pressure Provider Name and Address Organization Details Last Updated DateTime 12/16/2020 163.83 cm 39.5 kg/m2 432000.6 1 g 114 mm[Hg] 73 mm[Hg] Sumi Alvarenga [facility] 1 14:10:42 Date Recorded Body height Body mass index (BMI) Body weight Systolic blood pressure Diastolic blood pressure Provider Name and Address Organization Details Last Updated DateTime 12/16/2023 163.83 cm 49.5 kg/m2 259809.5 6 g 136 mm[Hg] 81 mm[Hg] Rubia Tuan [facility] 4 14:43:58 Date Recorded Body height Body mass index (BMI) Body weight Systolic blood pressure Diastolic blood pressure Provider Name and Address Organization Details Last Updated DateTime 02/26/2024 163.83 cm 50.4 kg/m2 364777.5 3 g 132 mm[Hg] 81 mm[Hg] Rossana Phoenix [facility] 4 10:22:41 Social History Question Answer Notes LastModified by Organizat ion Details LastModified Time Tobacco Smoking Status Never Smoker Sumi Alvarenga [facility] 12/14/2020 14:10:31 What Is Your Level Of Alcohol Consumption? None Information not available 12/16/2023 Are You Blind Or Do You Have Difficulty Seeing? No Information n ot available 12/14/2020 What Is Your Level Of Caffeine Consumption? Occasional Information not available 12/14/2020 How Much Tobacco Do You Chew? None Information not available 12/16/2023 In The 14 Days Before Symptom Onset, Have You Had Close Contact With A Laboratory-confirm ed COVID-19 While That Case Was Ill? No Information n ot available 12/16/2023 In The 14 Days Before Symptom Onset, Have You Had Close Contact With A Person Who Is Under Investigation For COVID-19 While That Person Was Ill? No Information not available 12/16/2023 Have You Been To An Area Known To Be High Risk For COVID-19? No Information not available 12/16/2023 Are You Deaf Or Do You Have Serious Difficulty Hearing? No Information not available 12/14/2020 What Type Of Diet Are You Following? REGULAR Information n ot available 12/14/2020 What Is The Highest Grade Or Level Of School You Have Completed Or The Highest Degree You Have Received? [id number] Information not available 12/16/2023 What Is Your Occupation? [employer] Information not available 12/16/2023 Are There Any Guns Present In Your Home? No Information not available 12/16/2023 Do You Use Protection During Sex? Usually Information not available 12/16/2023 Do You Use Your Seat Belt Or Car Seat Routinely? Yes Information not available 12/14/2020 Do You Have Smoke And Carbon Monoxide Detectors In Your Home? Yes Information not available 12/14/2020 How Much Tobacco Do You Smoke? No Information not available 12/16/2023 Do You Feel Stressed (tense, Restless, Nervous, Or Anxious, Or Unable To Sleep At Night)? [id number] Information not available 12/14/2020 Do You Use Any Illicit Or Recreational Drugs? No Information not available 12/14/2020 Do You Use Sunscreen Routinely? No Information not available 12/16/2023 Have You Used IV Drugs? No Information not available 12/16/2023 Sex: Unknown Functional Status Question Answer Note LastModified by Organizat ion Details LastModified Time Are you able to walk? YESWOREST Information not available 12/14/2020 What is your exercise level? Occasional Information not available 12/14/2020 Mental Status None recorded. Family History Relationship Description Onset Age of this Age Resolved Age Notes LastModified by Organization Details LastModified Time Brother Asthma Not available 14:07:32 Father Diabetes mellitus Not available 2020 14:07:40 Father Malignant tumor of lung Not available 2020 14:07:49 Maternal Aunt Malignant tumor of breast Not available 2020 14:08:01 Maternal Aunt Disorder of thyroid gland Not available 2020 14:08:19 Maternal Grandmother Malignant tumor of breast Not available 2020 14:08:11 Mother Anemia Not available 03/2021 14:08:34 Mother Cyst of ovary Not available 2023 10:17:28 Mother Malignant tumor of cervix Not available 2020 14:08:53 Mother Mental disorder Not available 2020 14:09:12 Mother Disorder of thyroid gland Not available 2020 14:09:27 Mother Malignant tumor of ovary Not available 2020 14:09:40 Maternal Grandfather Hypertensive disorder Not available 2020 14:10:03 Paternal Grandfather Diabetes mellitus Not available 2020 14:10:09 Medical History Condition Response Allergies (Food, seasonal, environmental ) N Other N Breast Cancer N Drug/Latex Allergies/Reactions N Blood Transfusion N Dermatologic Disorders N Lung Disease N Defects or Inherited Disease N Breast Problem N Gestational Diabetes N Hematologic disorders N Anesthesia Complications N History of STI N Deep Vein Thrombosis N Polycystic ovary syndrome N Anxiety Disorder N Autoimmune disease N Arthritis N Infertility N Polyps N Acid Reflux (GERD) N History of abnormal pap N Cancer N Stroke N Varicosities N Neurologic/Epilepsy N Endometriosis N High Cholesterol N Headaches N Fibromyalgia N Kidney Disease N Heart Problems N Kidney or Bladder Problems N Thyroid Problems N GI Problems N Eating Disorder N Anemia N Art (IVF or FET) N Psychiatric Illness N Ovarian Cancer N Diabetes N Pulmonary (TB, Asthma) N Hepatitis/Liver Disease N No Past Medical History Y Eczema N Urinary Tract Infection N Abuse/Domestic Violence N Asthma N Trauma/Violence N Depression/ depression N Heart Disease N Pre-Eclampsia N Hypertension N Osteoporosis N Thrombophilias N Gynecological History Statement/Question Response Abnormal Pap N Flow Moderate Date of LMP 12/13/2023 N Was last menstrual period normal Y STIs/STDs N HPV Vaccine Y Duration of Flow (days) 6 Current Control Method Implant Are cycles usually normal Y Frequency of Cycle (Q days) 28 Sexually Active? Y Menses Monthly Y Age of first menstrual cycle 14 Date of Last Pap Smear Sexual Problems? N Desired Control Method Implant LMP Approximate N Obstetrics History GPAL:G 0 P 0 0 0 0 Type Value Living 0 Total 0 Past Encounters Encounter ID Performer Location Encounter Start Date Encounter Closed Date Diagnosis/Indication Diagnosis SNOMED-CT Code Diagnosis ICD10 Code Diagnosis Note [id number] Elsi Lynch [facility] [address] [address] 12/14/2020 13:47:10 12/14/2020 14:27:54 Gynecologic examination 89007099 Z01.419 Take Calcium with Vitamin D 1200mg daily if not receiving in daily diet. It is strongly advised to have an annual flu shot and up can obtain at most pharmacies . If you have not had a TDap shot in the last 10 years you should obtain one as well. Discussed with patient & provided with informatio n regarding Gardisil vaccine to prevent the 4 strains for HPV that cause cervical cancer if under age 26. Encourage safe sexual practices, to use condoms and limit partners if not already in a monogamous relationsh ip. Do monthly self breast exams. Have mammogram yearly or every other year depending on family history. BRCA testing is now available for patients with strong genetic history of female cancer. If interested contact the office. Engage in daily exercise of low impact aerobic exercise 45-60 minutes 4-5 times weekly. Avoid tobacco and illicit drugs as well as using moderation with alcohol intake less than 1-2 8 oz beverages daily. This lifestyle behavior pattern will lead to less health conditions and longer life span. If BMI greater than 25 weight watchers or dietary consult advised. Patient received above instructio ns, and questions have been answered. If you have any questions please call or respond to this email. Patient was made aware of the patient portal and may obtain a paper copy of today's plan if desired. Pap q3yrs unless otherwise indicated per asccpLast pap 2020 wnlNo issues or concerns. Contracept ion care management [id number] Z30.9 Nexplanon placed 12/19/2017. Has appt for removal/re insertion set already.No questions about this. [id number] Elsi Lynch [facility] [address] [address] 12/16/2020 13:55:02 12/16/2020 14:33:04 Removal of subcutaneous contraceptive [id number] Z30.46 Removal site was cleansed with betadine and 3cc of lidocaine used for anesthesia . Device was removed in normal fashion without difficulty . Steri stips and pressure bandage placed. Insertion of subcutaneous contraceptive [id number] Z30.9 Patient is here currently on her menses. She was given all the r/b/a of placement of the Nexplanon device and has signed the consent. She is fully aware of all possible side effects of the device and has decided to move forward with placement. Insertion site was cleansed with betadine and 3cc lidocaine used for anesthesia . Device was placed in the left arm per usual fashion w/o complicati on and patient instructed to f/u in one month or earlier if there are any si/sx of infection or hypersensi tivity at the insertion site Screening procedure 2012 5006 Z13.9 [id number] Hardeep Husain MD [facility] [address],[place] [address] 12/16/2023 14:31:19 12/16/2023 15:37:12 Contraception care management [id number] Z30.9 Nexplanon was removed and reinserted without complicati ons. She tolerated it well. Insertion of subcutaneous contraceptive [id number] Z30.46 [id number] SHELLEY RDZ MD [facility] [address] [address] 02/26/2024 10:17:08 02/26/2024 11:12:43 Polycystic ovary syndrome [id number] E28.2 - patient reports hx of oligomenor chris- would like hormone testing- discussed some levels may not be accurate as she is on Nexplanon Gynecologi c examination [id number] Z01.419 Well woman care- Cervical cancer screening: Pap smear obtained today, will follow up on the results with the patient as they become available- Breast cancer screening: mammogram not indicated- Colon cancer screening: does not qualify- HPV immunizati on: received- STD testing: declined- hereditary cancer screening: does not qualify for testing Health Concerns Section Related Observation LastModified by Organization Detai ls LastModified Time None Recorded Concern Status LastModified by Organization Details LastModified Time None Recorded Advance Directives Directive None Recorded Payers Encounter Date Sequence Insurance Name Policy Number Policy Moore Covered Member ID Moore Member ID Guarantor Name 12/14/2020 1 [facility] - DOS ON OR AFTER 20 (MEDICAID REPLACEMENT - HMO) [id number] Brandy Diaz [id number] Brandy Diaz 12/16/2020 1 [facility] - [facility] ON OR AFTER 11/03/20 (MEDICAID REPLACEMENT - HMO) [id number] Brandy Diaz [id number] Brandy Diaz 12/16/2023 1 [facility] - DOS ON OR AFTER 20 (MEDICAID REPLACEMENT - HMO) [id number] Brandy Diaz [id number] Brandy Diaz 02/26/2024 1 [facility] - DOS ON OR AFTER 20 (MEDICAID REPLACEMENT - HMO) [id number] Brandy Diaz [id number] Brandy Diaz Notes Date Note Type Note Provider Name and Address Organization Details Recorded Time 12/14/2020 text/html Annual GYNReport ed bypatient.History: no gynecologic complaints Menstrual cycle:Normal menses Urinary symptoms:No hematuria; No incontinence Vulva:No genital lesion Vagina:Normal vaginal discharge Breast:No breast pain; No breast lump; No nipple discharge Current Contraception:Sati sfied with current contraception; Monogamous relationship; Implanon (Nexplanon) Sexual complaints:No sexual complaints; No pain during intercourse; Normal libido Menopausal Symptoms:No menopausal symptoms; Normal vaginal lubrication Psychological symptoms:No depression; No anxiety; No PMDD Preventive measures:Encourage self breast examination; Encourage regular exercise; Encourage no tobacco use; Encourage regular mammograms starting age 40; Followed with Q3 year pap smear and high risk HPV typing Elsi Lynch JULIANNE- [address], [place], [address], [facility] 12/14/2020 14:22:39 12/16/2020 text/html Here today for nexplanon removal/insertion. SMITH Caro-ISIAH [address], [place], [address], [facility] 12/16/2020 14:31:01 12/16/2023 text/html 28-year-old fema le presents for Nexplanon removal and reinsertion. She understands the procedure. It was explained to her in detail. She understands risks, benefits, and alternatives. She has completed the informed consent process. Hardeep Husain MD [address], [place], [address], [facility] 12/16/2023 15:33:53 02/26/2024 text/html Presents today f or her annual well-woman exam. Denies abnormal vaginal discharge. She is sexually active and denies dyspareunia. She is using Nexplanon for contraception, and she states that she is satisfied with this method. She has not noticed any changes or masses in her breasts. LMP 12/2023 at time of Nexplanon replacement. Patient has a history of oligomenorrhea, and has concern for PCOS. She has not been tested previously. Her PCP would like labs drawn to evaluate. SHELLEY RDZ MD [address], [place], [address], [facility] 02/26/2024 11:11:36 OBGyn Episode Ob Episode Information Episode Created Date Number of Fetuses Patient Bloodtype Patient rh Status Prepregnancy Weight lbs Domestic Partner Domestic Partner Phone Father Name Social Sciences Lecturer Status 12/05/19 24 1 DELETED Fetus Data First Name Last Name Admitted to NICU Weight (g) Sex Living Outcome Pediatric Complications Fetus ID Race Codes Race Delivery Type [id number] Frandy Calculation Initial Frandy Date Initial Exam Date Initial Exam Provider Initial Ultrasound Date Last Menstrual Period Date Ultra Sound Weeks Gestation 12/05/2023 0 Eighteen To Twenty Week Frandy Update Ultra Sound Date Fundal Height At Umbil Quickening Date Ultra Sound Latest Weeks Gestation Final Frandy Confirmed By Final Frandy Confirmed Date Final Frandy Date Ultra Sound Latest Days Gestation 0 0 Menstrual History Last Menstrual Date Menses Monthly On Bcp Conception Prior Menses Frequency Hcg Plus Date Menarche Onset Age Delivery Information Delivery Date Delivery Type Labor Anesthesia Weeks Gestation Incision Type Labor Labor Length Hrs Delivered By Post Complications Tubal Sterilization Discharge Date Comments Discharge Information Feeding Method Contraceptive Method Maternal HG B and HCT Levels
[2024-06-18 14:42] VITALS: BP 142/57; PULSE 80; RESP 16; TEMP 36.7; O2SAT 100
--- NOTE | 2024-06-18 15:44 | ED_ITS ---
HPI - General Adult General Chief complaint: Extremity Injury, Lower Stated complaint: LEFT ankle injury from fall Time Seen by Provider: 06/18/24 15:44 Focused HPI: Brandy Diaz is a 29 y/o female who presents today with reports of falling in the mud and her left leg was bent under her and her ankle twisted. She states that she cannot bear weight on her ankle - Pedal pulses strong GENERAL: Well-appearing, well-nourished, and in no acute distress. HEAD: Normocephalic, atraumatic. CHEST: Clear to auscultation. ?No respiratory distress. HEART: Regular rate and rhythm.? NEURO: ?Alert and oriented x3. Patient screened in triage and initial orders placed.? ?Additional care and disposition to be based upon?diagnostic testing and treatment. Related Data Allergies Allergy/AdvReac Type Severity Reaction Status Date / Time No Known Allergies Allergy Verified 06/22/24 11:04 PMFSH Past Medical History Medical History (Updated 06/22/24 @ 13:13 by Keenan Sheikh MD) Gallstones and inflammation of gallbladder without obstruction Skin irritation due to topical agent Morbid obesity with BMI of 45.0-49.9, adult Migraines Surgical History Surgical History (Updated 01/30/24 @ 09:57 by Jd Vance CMA) History of pelvic surgery 3 surgeries for ovarian torsion Family History Family History (Updated 01/30/24 @ 10:00 by Jd Vance CMA) Mother Alcoholism Cervical cancer Vulva cancer Depression Father Alcoholism Lung cancer Sibling Alcoholism Asthma Grandparent Depression Grandparent Breast cancer Other Breast cancer Other Malignant neoplasm of prostate Social History Social History (Updated 01/30/24 @ 10:00 by Jd Vance CMA) Smoking status: Never smoker Alcohol intake: never Substance use: never Course Vital Signs Vital signs: Vital Signs Temperature 36.7 C 06/18/24 14:42 Pulse Rate 80 06/18/24 14:42 Respiratory Rate 16 06/18/24 14:42 Blood Pressure 142/57 H 06/18/24 14:42 Pulse Oximetry 100 06/18/24 14:42 Oxygen Delivery Room Air 06/18/24 14:42 Temperature 36.7 C 06/18/24 14:42 Pulse Rate 80 06/18/24 14:42 Respiratory Rate 16 06/18/24 14:42 Blood Pressure 142/57 H 06/18/24 14:42 Pulse Oximetry 100 06/18/24 14:42 Oxygen Delivery Room Air 06/18/24 14:42 Medical Decision Making Vital Signs Vital Signs: Vital Signs Temperature 36.7 C 06/18/24 14:42 Pulse Rate 80 06/18/24 14:42 Respiratory Rate 16 06/18/24 14:42 Blood Pressure 142/57 H 06/18/24 14:42 Pulse Oximetry 100 06/18/24 14:42 Oxygen Delivery Room Air 06/18/24 14:42 Temperature 36.7 C 06/18/24 14:42 Pulse Rate 80 06/18/24 14:42 Respiratory Rate 16 06/18/24 14:42 Blood Pressure 142/57 H 06/18/24 14:42 Pulse Oximetry 100 06/18/24 14:42 Oxygen Delivery Room Air 06/18/24 14:42 Discharge Plan Discharge Clinical Impression: Ankle fracture Patient Disposition: Home, Self-Care Condition: Stable Instructions: Ankle Fracture (ED) Additional Instructions: Please try to keep your leg in the splint, and follow-up with orthopedic surgeon. Try to keep your leg propped up as much as possible, you can take pain medication as needed, and come back to the ER for any further issues. Patient Language: Anguillan Prescriptions: New acetaminophen [Tylenol Extra Strength] 500 mg tablet 1,000 mg PO Q6H PRN (Reason: pain) Qty: 50 0RF ibuprofen 600 mg tablet 600 mg PO TID PRN (Reason: fever or pain) Qty: 30 0RF No Action rizatriptan 5 mg tablet See Rx Instructions PO .COMPLEX Qty: 9 5RF Rx Instructions: take 1 tablet at onset of headache; if no relief, may repeat 1 tablet after at least 2 hrs PO Follow-up/Referrals: Keenan Sheikh MD [Physician] - 2 Days Guzmán,GRIFFIN Boss [Primary Care Provider] -
--- OUTSIDE RECORDS SUMMARY | 2024-06-18 15:51 | XMS_ITS | Clinical Summary ---
Author Organization [facility] [place] Address [address] [place] [address] Care Team Providers Care Quality Facilitator Name Role Phone Daisy Hanks AMY-YAMILA Primary Care Provider Source Comments [facility],non-owned Affiliates and Associated Physician Practices is amultiple site organization consisting of ambulatory clinics and hospital sitesin [place], [place], [place] and [place]. This disclosure is being madepursuant to the Care Everywhere program and may not contain all information available regarding this patient. Last updated 18.[facility] [place] Allergies Active Allergy Reactions Criticality Noted Date [...] care, and heating? Not very hard 03/13/2024 [facility] [place] [facility] Occupat ional Health - Occupational Stress [...] place to sleep or slept in a care home (including now)? Patient declined 01/21/2024 Housing Stability [...] any time in the past 12 m [facility], were you homeless or living in a care home (including now)? No 03/13/2024 Sex and Gender Information Value Date Recorded Sex Assigned at Not on file Gender Identity Not on file Sexual Orientation Not on file Last Filed Vital Signs Vital Sign Reading Time Taken Comments Blood Pressure 131/80 03/13/2024 7:27 AM RECREATION ACTIVITIES COORDINATOR Pulse 75 03/13/2024 7:27 AM RECREATION ACTIVITIES COORDINATOR Temperature 36.7 C (98 F) 03/13/2024 7:27 AM RECREATION ACTIVITIES COORDINATOR Respiratory Rate 18 03/13/2024 7:27 AM RECREATION ACTIVITIES COORDINATOR Oxygen Saturation 100% 03/13/2024 7:27 AM RECREATION ACTIVITIES COORDINATOR Inhaled Oxygen Concentration - - Weight 131.5 kg (290 lb) 03/12/2024 10:39 AM RECREATION ACTIVITIES COORDINATOR Height 167.6 cm (5' 6 ) 03/12/2024 10:39 AM RECREATION ACTIVITIES COORDINATOR Body Mass Index 46.81 03/12/2024 10:39 AM RECREATION ACTIVITIES COORDINATOR Plan of Treatment Health Maintenance Due Date [...] 1:25 AM 03/04/2022 7:19 PM Care Teams Quality Facilitator Relationship Specialty Start Date End Date Daisy Hanks, DELINEATOR-DOCUMENT ANALYST [address] [facility] [address] [phone] PCP - General Nurse Practitioner 02/06/24
--- OUTSIDE RECORDS SUMMARY | 2024-06-18 15:51 | XMS_ITS | Clinical Summary ---
Author Organization [facility] Address [facility] [place] [address] Care Team Providers Care Flatware Maker Name Role Phone Daisy Hanks SAIGE Primary Care Provider [phone] Allergies No known active allergies Medications No [...] to complete this topic Insurance Care Teams Flatware Maker Relationship Specialty Start Date End Date Daisy Hanks APNP [address] [phone] PCP - General Nurse Practitioner Family 01/20/24
--- OUTSIDE RECORDS SUMMARY | 2024-06-18 15:51 | XMS_ITS | Patient Health Summary ---
Author Organization [facility] Address [address] [place] [address] Care Team Providers Care Front End Technician Name Role Phone Daisy Hanks AMY-YAMILA Primary Care Provider Note from [facility],non-owned Affiliates and Associated Physician Practices is amultiple site organization consisting of ambulatory clinics and hospital sitesin [place], [place], [place] and [place]. This disclosure is being madepursuant to the Care Everywhere program and may not contain all information available regarding this patient. Last updated 18.[facility] Allergies * Skin Adhesives(Rash) -Medium Criticality * [...] care, and heating? Not very hard 03/13/2024 [employer] [place] [facility] Occup[facility] ional [facility] - Occupational Stress [...] place to sleep or slept in a longterm (including now)? Patient declined 01/21/2024 Housing Stability [...] any time in the past 12 m [facility], were you homeless or living in a longterm (including now)? No 03/13/2024 Sex and Gender Information Value Date Recorded Sex Assigned at Not on file Gender Identity Not on file Sexual Orientation Not on file Last Filed Vital Signs Vital Sign Reading Time Taken Comments Blood Pressure 131/80 03/13/2024 7:27 AM LASER MACHINE OPERATOR Pulse 75 03/13/2024 7:27 AM LASER MACHINE OPERATOR Temperature 36.7 C (98 F) 03/13/2024 7:27 AM LASER MACHINE OPERATOR Respiratory Rate 18 03/13/2024 7:27 AM LASER MACHINE OPERATOR Oxygen Saturation 100% 03/13/2024 7:27 AM LASER MACHINE OPERATOR Inhaled Oxygen Concentration - - Weight 131.5 kg (290 lb) 03/12/2024 10:39 AM LASER MACHINE OPERATOR Height 167.6 cm (5' 6 ) 03/12/2024 10:39 AM LASER MACHINE OPERATOR Body Mass Index 46.81 03/12/2024 10:39 AM LASER MACHINE OPERATOR Procedures * CBC W AUTO DIFFERENTIAL(Performed 03/13/2024) [...] 03/12/2024) * ENDOTRACHEAL TUBE NOTE(Performed 03/12/2024) * MI LAP,CHOLECYSTECTOMY(Performed 03/12/2024) Performed for Acute cholecystitis * [...] 01/23/2024) * ENDOTRACHEAL TUBE NOTE(Performed 01/22/2024) * MI LAP,CHOLECYSTECTOMY(Performed 01/22/2024) Performed for Acute cholecystitis * [...] NOTIFICATION(Performed 01/30/2023) Performed for Preprocedural examination * MI LAP,DIAGNOSTIC ABDOMEN(Performed 01/30/2023) Performed for Diagnosis unknown * TYPE + SCREEN PANEL(Performed 01/30/2023) Performed for Preprocedural examination * CBC W AUTO DIFFERENTIAL(Performed 01/30/2023) Performed for Preprocedural examination * HCG URINE QUALITATIVE - POCT (IP) INTERFACED(Performed 01/30/2023) * CARDIAC RHYTHM STRIP ORDER(Performed 11/24/2022) * PATHOLOGY TISSUE EXAM (STL)(Performed 11/21/2022) Performed for Diagnosis unknown * ENDOTRACHEAL TUBE NOTE(Performed 11/21/2022) * MI LAP,DIAGNOSTIC ABDOMEN(Performed 11/21/2022) * EKG 12-LEAD(Performed 11/21/2022) [...] unknown * ENDOTRACHEAL TUBE NOTE(Performed 03/04/2022) * MI LAP,DIAGNOSTIC ABDOMEN(Performed 03/04/2022) * CBC W/O DIFFERENTIAL(Performed [...] CBC W AUTO DIFFERENTIAL (03/13/2024 7:41 AM LASER MACHINE OPERATOR) Only the most recent of9 resultswithin the time period is included. WBC 14.4(H) 4.0 - 10.7 x10E9/L 03/13/2024 7:51 AM [facility] RBC Count 4.19 3.90 - 5.20 x10E12/L 03/13/2024 7:51 AM [facility] Hemoglobin 12.5 11.9 - 15.8 g/dL 03/13/2024 7:51 AM [facility] Hematocrit 36.2 34.8 - 46.1 % 03/13/2024 7:51 AM [facility] MCV 86.4 80.0 - 98.0 fL 03/13/2024 7:51 AM [facility] MCH 29.8 26.7 - 33.6 pg 03/13/2024 7:51 AM [facility] MCHC 34.5 31.7 - 36.3 g/dL 03/13/2024 7:51 AM [facility] RDW-CV 11.5 11.3 - 14.8 % 03/13/2024 7:51 AM [facility] Platelet Count 247 150 - 420 x10E9/L 03/13/2024 7:51 AM [facility] MPV 9.3 7.8 - 11.4 fL 03/13/2024 7:51 AM [facility] Neutrophil % 84.3(H) 41.0 - 74.0 % 03/13/2024 7:51 AM [facility] Lymphocyte % 10.2(L) 17.0 - 47.0 % 03/13/2024 7:51 AM [facility] Monocyte % 5.0 3.0 - 11.0 % 03/13/2024 7:51 AM [facility] Eosinophil % 0.0 0.0 - 7.0 % 03/13/2024 7:51 AM [facility] Basophil % 0.1 0.0 - 1.6 % 03/13/2024 7:51 AM [facility] Immature Granulocytes % 0.4 0.0 - 1.0 % 03/13/2024 7:51 AM [facility] Neutrophil Absolute 12.10(H) 1.60 - 7.50 x10E9/L 03/13/2024 7:51 AM [facility] Lymphocyte Absolute 1.47 1.00 - 4.40 x10E9/L 03/13/2024 7:51 AM [facility] Monocyte Absolute 0.72 0.15 - 1.00 x10E9/L 03/13/2024 7:51 AM [facility] Eosinophil Absolute 0.00 0.00 - 0.60 x10E9/L 03/13/2024 7:51 AM [facility] Basophil Absolute 0.02 0.00 - 0.13 x10E9/L 03/13/2024 7:51 AM [facility] Blood BLOOD SPECIMEN / Unknown Venipuncture / Unknown 03/13/2024 7:41 AM LASER MACHINE OPERATOR 03/13/2024 7:45 AM [facility] Hui Oneal MD LAB - HEMATOLOGY ORD ERABLES [facility] [address] [place] [phone] [phone] * (ABNORMAL) COMPREHENSIVE METABOLIC PANEL (03/13/2024 6:23 AM [facility]) Only the most recent of7 resultswithin the time period is included. BUN <5(L) 7 - 26 mg/dL 03/13/2024 6:57 AM [facility] Creatinine 0.52(L) 0.56 - 0.96 mg/dL 03/13/2024 6:57 AM [facility] Sodium 140 136 - 145 mmol/L 03/13/2024 6:57 AM [facility] Potassium 3.7 3.5 - 4.5 mmol/L 03/13/2024 6:57 AM [facility] Chloride 114(H) 98 - 107 mmol/L 03/13/2024 6:57 AM [facility] CO2 18(L) 22 - 29 mmol/L 03/13/2024 6:57 AM [facility] Glucose 108(H) 70 - 99 mg/dL 03/13/2024 6:57 AM [facility] Calcium 7.2(L) 8.4 - 10.2 mg/dL 03/13/2024 6:57 AM [facility] Protein Total 5.7(L) 6.0 - 8.3 g/dL 03/13/2024 6:57 AM [facility] Albumin 2.8(L) 3.4 - 5.0 g/dL 03/13/2024 6:57 AM [facility] Bilirubin Total 0.3 0.2 - 1.2 mg/dL 03/13/2024 6:57 AM [facility] Alkaline Phosphatase 65 40 - 150 U/L 03/13/2024 6:57 AM [facility] ALT 27 5 - 55 U/L 03/13/2024 6:57 AM [facility] AST 29 5 - 34 U/L 03/13/2024 6:57 AM [facility] Anion Gap 8 6 - 16 03/13/2024 6:57 AM [facility] BUN/Creatinine Ratio <10 7 - 23 03/13/2024 6:57 AM [facility] Osmolality Calculated <288 275 - 295 mOsm/kg 03/13/2024 6:57 AM [facility] Albumin/Globulin Ratio 1.0(L) 1.1 - 2.3 03/13/2024 6:57 AM [facility] eGFR by CKD-EPI >90 >=90 mL/min/1.7 3 m2 03/13/2024 6:57 AM [facility] Blood BLOOD SPECIMEN / Unknown Venipuncture / Unknown 03/13/2024 6:23 AM LASER MACHINE OPERATOR 03/13/2024 6:31 AM [facility] Hui Oneal MD LAB - CHEMISTRY [place] [facility] Organization Address City/State/ZIP Co de Phone Number [facility] [address] [place] [phone], [facility] [phone] * (ABNORMAL) PHOSPHORUS BLOOD (03/13/2024 6:23 AM [facility]) Only the most recent of5 resultswithin the time period is included. Phosphorus 1.9(L) 2.9 - 5.1 mg/dL 03/13/2024 6:57 AM [facility] Blood BLOOD SPECIMEN / Unknown Venipuncture / Unknown 03/13/2024 6:23 AM LASER MACHINE OPERATOR 03/13/2024 6:31 AM LASER MACHINE OPERATOR Hui Oneal MD LAB - CHEMISTRY [place] Performing Organization Address City/[facility]/ZIP Co de Phone Number [address] [phone], [facility] [phone] * MAGNESIUM BLOOD (03/13/2024 6:23 AM LASER MACHINE OPERATOR) Only the most recent of5 resultswithin the time period is included. Pathologist [facility] Magnesium 1.6 1.6 - 2.6 mg/dL 03/13/2024 6:57 AM LASER MACHINE OPERATOR [facility] Blood BLOOD SPECIMEN / Unknown Venipuncture / Unknown 03/13/2024 6:23 AM LASER MACHINE OPERATOR 03/13/2024 6:31 AM LASER MACHINE OPERATOR Hui Oneal MD LAB - CHEMISTRY [place] Performing Organization Address [facility] Co de Phone Number [address] [phone], [facility] [phone] * EKG 12-LEAD (03/12/2024 7:54 PM LASER MACHINE OPERATOR) Only the most recent of3 resultswithin the time period is included. Ventricular Rate 98 BPM SL MUSE Atrial Rate 98 BPM [facility] MUSE P-R Interval 146 ms [facility] MUSE QRS Duration ms 90 ms [facility] MUSE Q-T Interval ms 372 ms [facility] MUSE QTC Calculation (Bezet) 474 ms [facility] MUSE Calculated P [place] 65 degrees [facility] MUSE Calculated R [place] 26 degrees [facility] MUSE Calculated T [place] 36 degrees [facility] MUSE Interpretation EKG NORMAL SINUS RHYTHM NORMAL ECG WHEN COMPARED WITH ECG OF 21-NOV-2022 15:26, VENT. RATE HAS INCREASED BY 38 BPM Confirmed by TANIA URIARTE MD ([id number]) on 03/14/2024 3:45:03 PM [facility] MUSE 03/12/2024 7:54 PM LASER MACHINE OPERATOR 03/14/2024 3:45 PM LASER MACHINE OPERATOR Hui Oneal MD ECG ORDERABLES [facility] MUSE * PATHOLOGY TISSUE (03/12/2024 5:12 PM LASER MACHINE OPERATOR) Case Report Surgical Pathology Report Case: [id number] Authorizing Provider: Hui Oneal MD Collected: 03/12/2024 05:12 PM Ordering Location: [facility] ASAD OP Received: 03/13/2024 07:10 AM Pathologist: Jing Araya MD Specimen: Gallbladder, gallbladder 03/16/2024 11:20 AM [facility] Final Diagnosis Gallbladder, cholecystectomy (A): - Mild chronic cholecystitis - Cholelithiasis and mucosal erosion 03/16/2024 11:20 AM [facility] PATHOLOGY LAB Microscopic Description and Comment Microscopic examination substantiates the final diagnosis. 03/16/2024 11:20 AM [facility] Clinical History The patient is a 28-year-old woman transferred with acute cholecystitis. Operative procedure: Robotic cholecystectomy. 03/16/2024 11:20 AM [facility] Gross Description The requisition and [...] to 1.2 cm in thickness (in fundus). Patient Transportation Driver sections are submitted as follows: A1, gallbladder wall, including areas of perforation; A2, additional sections of gallbladder wall, including areas of thickening at fundus. AL 03/16/2024 11:20 AM [facility] PATHOLOGY LAB Pathologist Location at [facility] 03/16/2024 11:20 AM [facility] PATHOLOGY LAB Disclaimer The performance characteristics of all immunohistochemical and indirect immunofluorescence stains (if any) cited in this report were determined by the Histopathology Laboratory of [facility]. Some of these tests were developed [...] the attending (teaching) pathologist. 03/16/2024 11:20 AM [facility] PATHOLOGY LAB Embedded Images 03/16/2024 11:20 AM [facility] PATHOLOGY LAB Resection without Tumor ENTIRE GALLBLADDER / Unknown 03/12/2024 5:12 PM LASER MACHINE OPERATOR 03/13/2024 7:10 AM LASER MACHINE OPERATOR Comment:Pre-op diagnosis: ACUTE CHOLECYSTITIS Hui Oneal MD LAB - PATHOLOGY/CYTO LOGY ORDERABLES Performing Organization Address City/State/[facility] Co de Phone Number [facility] PATHOLOGY LAB [address] [phone] * IV PLACEMENT PERFORMABLE (03/12/2024 2:17 PM LASER MACHINE OPERATOR) Narrative Octaviano Sahu MD - 03/12/2024 2:17 PM LASER MACHINE OPERATOR Octaviano Sahu MD 03/12/2024 2:17 PM Peripheral IV Line Placement: Patient Location: OR Insertion Time: 03/12/2024 2:17 PM Procedure: IV start (90382) Procedure Section: Skin Prep: alcohol. Orientation: left Location: hand Catheter Gauge: 20 Number of Attempts: 2. Procedure Tolerance: performed while patient under general anesthesia. Staff Section Anesthesia Provider: Octaviano Sahu MD, Performed the procedure Octaviano Sahu MD GENERAL ANESTHESIA O RDERABLES * ETT LINE PERFORMABLE (03/12/2024 2:14 PM LASER MACHINE OPERATOR) Narrative Janna Amos Anes Asst - 03/12/2024 2:14 PM LASER MACHINE OPERATOR Janna Amos Anes Asst 03/12/2024 4:21 PM Endotracheal Tube Placement: Patient Location: OR. Intubation Event Date/Time: 03/12/2024 1:33 PM Procedure: intubation ([id number]) Procedure Section: Sedation: under general anesthesia. Indications [...] * BLOOD TYPE VERIFICATION (03/12/2024 11:03 AM LASER MACHINE OPERATOR) ABO Rh A NEG 03/12/2024 11:49 AM LASER MACHINE OPERATOR [facility] BLOOD BANK LAB Blood Bank BLOOD SPECIMEN / Unknown Venipuncture / Unknown 03/12/2024 11:03 AM LASER MACHINE OPERATOR 03/12/2024 11:06 AM LASER MACHINE OPERATOR Hui Oneal MD LAB - BLOOD BANK ORD ERABLES [facility] [address] [place] [address], [place] [phone] * HCG URINE QUALITATIVE - POCT (IP) INTERFACED (03/12/2024 10:42 AM LASER MACHINE OPERATOR) Only the most recent of3 resultswithin the time period is included. HCG Qual Urine Negative Negative 03/12/2024 10:49 AM LASER MACHINE OPERATOR [facility] Urine URINE / Unknown 03/12/2024 1 0:42 AM LASER MACHINE OPERATOR 03/12/2024 10:49 AM LASER MACHINE OPERATOR Hui Oneal MD LAB - POINT OF CARE ORDERABLES Performing Organization Address City/[facility]/ZIP Co de Phone Number [facility] [address] [place] [phone], [facility] [phone] * TYPE + SCREEN PANEL (03/12/2024 10:39 AM LASER MACHINE OPERATOR) Only the most recent of4 resultswithin the time period is included. Antibody Screen NEG 11:38 AM LASER MACHINE OPERATOR [facility] BLOOD BANK LAB ABO Rh A NEG 03/12/2024 11:38 AM LASER MACHINE OPERATOR [facility] BLOOD [facility] LAB Blood Bank BLOOD SPECIMEN / Unknown Venipuncture / Unknown 03/12/2024 10:39 AM LASER MACHINE OPERATOR 03/12/2024 10:45 AM LASER MACHINE OPERATOR Hui Oneal MD LAB - BLOOD BANK ORD ERABLES Performing Organization Address [facility] Co de Phone Number [facility] [address] [place] [phone], [facility] [phone] * HCG URINE QUAL POCT NOTIFICATION (03/12/2024 10:25 AM LASER MACHINE OPERATOR) Only the most recent of3 resultswithin the time period is included. Comment Notification Label Only - See Separate Report 03/12/2024 11:31 AM LASER MACHINE OPERATOR [facility] Urine URINE / Unknown 03/12/2024 1 0:25 AM LASER MACHINE OPERATOR 03/12/2024 10:25 AM LASER MACHINE OPERATOR Hui Oneal MD LAB - URINALYSIS ORD ERABLES Performing Organization Address City/[facility]/ZIP Co de Phone Number [address] [phone] [phone] * IR Biliary Drain Cath Exchange (02/17/2024 1:45 PM CDT) Anatomical Region Laterality Modality Abdomen X-Ray Angiograph y 02/17/2024 4:37 PM CDT Impressions 02/20/2024 7:09 PM CDT Impression: 1.Cholangiogram through existing cholecystostomy catheter demonstrated the cholecystostomy tube partially out of the gallbladder. 2.Exchange of the existing cholecystostomy catheter for a new 10 [place] cholecystostomy catheter under fluoroscopic guidance, as described [...] evaluation, please review the evaluation forms in [facility]. For details on monitored clinical parameters during the intra-service sedation time, please review the procedure nurse documentation in [facility]. > Dictated by Demario Colunga MD (Electric Range Preparer) 02/17/2024 4:37 PM Shikha Logan MD have [...] draped in the usual sterile manner. A cna pct film of the upper abdomen was obtained which demonstrated the known cholecystostomy catheter in the right upper abdominal quadrant. After anesthetizing with 1% lidocaine at the catheter entry site, contrast was hand injected through the existing catheter and a cholangiogram was obtained, which showed the cholecystostomy tube partially out of the gallbladder. Over a wire, the existing 10 [place] ReSolve pigtail drainage catheter was exchanged for [...] draped in the usual sterile manner. A cna pct film of the upper abdomen was obtained which demonstrated theknown cholecystostomy catheter in the right upper abdominal quadrant. After anesthetizing with 1% lidocaine at the catheter entry site, contrast was hand injected through the existing catheter and a cholangiogram was obtained, which showed the cholecystostomy tube partially out of the gallbladder. Over a wire, the existing 10 [place] ReSolve pigtail drainage catheterwas exchanged for a new 10French ReSolve pigtail drainage catheter. Hand injection of contrast through the new catheter confirmed proper positioning. The catheter was then secured and connected to gravity drainage. The patient tolerated the procedure well and [facility]. There were no immediate complicationsassociated with the procedure. Impression: 1.Cholangiogram through existing cholecystostomy catheter demonstratedthe cholecystostomy tube partially out of the gallbladder. 2.Exchange of the existing cholecystostomy catheter for a new 10 [place] cholecystostomy catheter under fluoroscopic guidance, as describedabove. [...] evaluation, please review the evaluation forms in [facility]. For details on monitored clinical parameters during the intra-service sedation time, please review the procedure nurse documentation in [facility]. > Dictated by Demario Colunga MD (Electric Range Preparer) 02/17/2024 4:37 PM Shikha Logan MD have personally reviewed and interpreted this examination/study. > Interpreting Provider: Shikha Morales MD on 02/20/2024 7:09 PM Shikha Morales MD IR ORDERABLES * (ABNORMAL) CBC W/O DIFFERENTIAL (01/24/2024 3:59 AM CDT) Only the most recent of4 resultswithin the time period is included. WBC 8.1 4.0 - 10.7 x10E9/L 01/24/2024 4:37 AM CDT [facility] RBC Count 3.75(L) 3.90 - 5.20 x10E12/L 01/24/2024 4:37 AM CDT [facility] Hemoglobin 11.0(L) 11.9 - 15.8 g/dL 01/24/2024 4:37 AM CDT [facility] Hematocrit 33.9(L) 34.8 - 46.1 % 01/24/2024 4:37 AM CDT [facility] MCV 90.4 80.0 - 98.0 fL 01/24/2024 4:37 AM CDT [facility] MCH 29.3 26.7 - 33.6 pg 01/24/2024 4:37 AM CDT [facility] MCHC 32.4 31.7 - 36.3 g/dL 01/24/2024 4:37 AM CDT [facility] RDW-CV 11.6 11.3 - 14.8 % 01/24/2024 4:37 AM CDT [facility] Platelet Count 271 150 - 420 x10E9/L 01/24/2024 4:37 AM CDT [facility] MPV 9.5 7.8 - 11.4 fL 01/24/2024 4:37 AM CDT [facility] Blood BLOOD SPECIMEN / Unknown Lab Venipuncture / Unknown 01/24/2024 3:59 AM CDT 01/24/2024 4:17 AM CDT Hui Oneal MD LAB - HEMATOLOGY ORD ERABLES [facility] [address] [place] [address] [phone] * IR Gallbladder Drainage (01/23/2024 11:55 AM CDT) Anatomical Region Laterality Modality Abdomen X-Ray Angiograph y 01/23/2024 5:19 PM CDT Impressions 01/23/2024 6:06 PM CDT Impression: Successful placement of placement of a 10 [place] pigtail cholecystostomy catheter as described above. Follow [...] evaluation, please review the evaluation forms in [facility]. For details on monitored clinical parameters during the intra-service sedation time, please review the procedure nurse documentation in [facility]. > Dictated by Bonifacio Gomez MD (Electric Range Preparer) 01/23/2024 5:19 PM Shikha Logan MD have [...] 2.Ultrasound and fluoroscopic guided placement of 10 [place] pigtail drainage catheter in the gall bladder. Procedure in Detail: The procedure including risks and benefits were explained to the patient/proxy in detail, and informed consent was obtained. The patient was placed in a supine position on the procedure table, and a cna pct film of the abdomen was obtained which [...] sheath was then removed and a 10 [place] pigtail drainage catheter was then advanced over [...] 2.Ultrasound and fluoroscopic guided placement of 10 [place] pigtail drainage catheter in the gall bladder. Procedure in Detail: The procedure including risks and benefits were explained to the patient/proxy in detail, and informed consent was obtained. The patient was placed in a supine position on the procedure table, and a cna pct film of the abdomen was obtained which [...] sheath was then removed and a 10 [place] pigtail drainage catheter was then advanced over [...] Successful placement of placement of a 10 [place] pigtail cholecystostomy catheter as described above. Follow [...] intravenously in my presence, and monitored by [facility] nurse as an independent trained observer who [...] patient evaluation,please review the evaluation forms in [facility]. For details on monitored clinical parameters during the intra-service sedation time, please review the procedure nurse documentation in [facility]. > Dictated by Bonifacio Gomez MD (Electric Range Preparer) 01/23/2024 5:19 PM IShikha MD have personally reviewed and interpreted this examination/study. > Interpreting Provider: Shikha Morales MD on 01/23/2024 6:06 PM [facility] IR ORDERABLES * CULTURE FUNGUS OTHER+FUNGUS SMEAR (01/23/2024 11:48 AM CDT) Culture No fungus isolated ANGEL 02/17/2024 9:50 AM CDT [facility] MICROBIOLOGY Fungus Stain No yeast or hyphae seen 02/17/2024 9:50 AM CDT [facility] Microbiology PERITONEAL FLUID / Unknown Collection / Unknown 01/23/2024 11:48 AM CDT 01/23/2024 12:01 PM CDT Hui Oneal MD LAB - MICROBIOLOGY O RDERABLES [facility] MICROBIOLOGY [address] [place] [address], [facility] [phone] * CULTURE FLUID+GRAM STAIN (01/23/2024 11:48 AM CDT) Culture No growth ANGEL 01/27/2024 5:06 AM CDT [facility]CRO[facility] Gram Stain Moderate Polymorphonuclear cells 01/27/2024 5:06 AM CDT [facility] Gram Stain Rare No organisms seen 01/27/2024 5:06 AM CDT [facility] Fluid PERITONEAL FLUID / Unknown Collection / Unknown 01/23/2024 11:48 AM CDT 01/23/2024 12:00 PM CDT Hui Oneal MD LAB - MICROBIOLOGY O JUAN J Performing Organization Address [facility] Co de Phone Number [facility] MICRO[facility] [address] [place] [address] [phone] * CULTURE AFB+SMEAR (01/23/2024 11:48 AM CDT) Culture No acid-fast bacillus isolated 03/02/2024 10:19 AM CDT [facility]CRO[facility] AFB Smear No acid-fast bacilli seen 03/02/2024 10:19 AM CDT [facility] MICRO[facility]OLOG[facility] Microbiology PERITONEAL FLUID / Unknown Collection / Unknown 01/23/2024 11:48 AM CDT 01/23/2024 12:01 PM CDT Hui Oneal MD LAB - MICROBIOLOGY O JUAN J Performing Organization Address [facility] [facility] Co de Phone Number [facility] MICROBIOLOGY [address] [place] [address], [facility] [phone] * CULTURE ANAEROBE (01/23/2024 11:48 AM CDT) Culture No anaerobic organisms isolated ANGEL 01/28/2024 1:06 PM CDT [facility] MICROBIOLOGY Microbiology PERITONEAL FLUID / Unknown Collection / Unknown 01/23/2024 11:48 AM CDT 01/23/2024 12:01 PM CDT Hui Oneal MD LAB - MICROBIOLOGY O JUAN J Performing Organization Address City/[facility] Co de Phone Number [facility] MICROBIOLOGY [address] [place] [address], [facility] [phone] * (ABNORMAL) PT-INR (01/23/2024 9:17 AM CDT) Only the most recent of2 resultswithin the time period is included. PT 14.7 12.1 - 14.8 sec 01/23/2024 9:44 AM CDT [facility] INR 1.2(H) 0.9 - 1.1 01/23/2024 9:44 AM CDT [facility] Blood BLOOD SPECIMEN / Unknown Lab Venipuncture / Unknown 01/23/2024 9:17 AM CDT 01/23/2024 9:28 AM CDT Narrative [facility] - 01/23/2024 9:44 AM CDT Conventional Warfarin Anticoagulant Therapy: INR Reference Range: 2.0-3.0 Intensive Warfarin Anticoagulant Therapy: INR Reference Range: 2.5-3.5 Shikha Morales MD LAB - COAGULATION ORDERABLES [facility] [address] [place] [address] * (ABNORMAL) BASIC METABOLIC PANEL (CALCIUM TOTAL) (01/23/2024 3:38 AM CDT) Only the most recent of3 resultswithin the time period is included. Glucose 128(H) 70 - 105 mg/dL 01/23/2024 4:33 AM [facility] Sodium 137 136 - 145 mmol/L 01/23/2024 4:33 AM T [facility] Potassium 4.0 3.5 - 5.1 mmol/L 01/23/2024 4:33 AM [facility] Chloride 110(H) 98 - 107 mmol/L 01/23/2024 4:33 AM [facility] CO2 22 22 - 29 mmol/L 01/23/2024 4:33 AM [facility] Calcium 8.6 8.4 - 10.4 mg/dL 01/23/2024 4:33 AM [facility] Anion Gap 5(L) 6 - 16 mmol/L 01/23/2024 4:33 AM [facility] BUN 4(L) 5.3 - 18.7 mg/dL 01/23/2024 4:33 AM [facility] Creatinine 0.70 0.57 - 1.11 mg/dL 01/23/2024 4:33 AM [facility] eGFR by CKD-EPI >90 >=90 mL/min/1.7 3 m2 01/23/2024 4:33 AM [facility] Blood BLOOD SPECIMEN / Unknown Lab Venipuncture / Unknown 01/23/2024 3:38 AM CDT 01/23/2024 3:58 AM CDT Hui Oneal MD LAB - CHEMISTRY PAPA Reeves Organization Address City/State/ZIP Co de Phone Number [facility] [address] [place], [place] [phone] * ETT LINE PERFORMABLE (01/22/2024 1:51 PM CDT) Narrative Kenna Chong APRN-CRNA - 01/22/2024 1:51 PM CDT Kenna Chong APRN-CRNA 01/22/2024 1:51 PM Endotracheal Tube Placement: Patient Location: OR. Intubation Event Date/Time: 01/22/2024 1:23 PM Procedure: intubation ([id number]) Procedure Section: Induction: standard IV Patient Position: [...] <2.42 mIU/mL 01/21/20 24 6:15 PM CDT [facility] Blood BLOOD SPECIMEN / Unknown Lab Venipuncture / Unknown 01/21/2024 5:35 PM CDT 01/21/2024 5:41 PM CDT Narrative [facility] - 01/21/2024 6:15 PM CDT hCG [...] Oneal MD LAB - CHEMISTRY PAPA TORIBIO [facility] [address] [phone] * CARDIAC RHYTHM STRIP ORDER (02/01/2023 4:58 [...] Event Date/Time: 01/30/2023 7:31 AM Procedure: intubation ([id number]). Procedure Section: Sedation: under general anesthesia. Indications [...] included. Case Report Surgical Pathology Report Case: [id number] Authorizing Provider: Ary Gray MD Collected: 11/21/2022 10:56 PM Ordering Location: [address] SURGICAL Received: 11/22/2022 09:00 AM Pathologist: Ary Dumont MD Specimen: Cyst, ovarian cyst 11/23/2022 9:48 AM CDT [facility] Final Diagnosis Ovary, cyst, excision - Follicle cyst 11/23/2022 9:48 AM [facility] Clinical History The patient is a 27-year-old woman. Operative procedure: diagnostic laparoscopy; 4 cm ovarian cyst excised. 11/23/2022 9:48 AM CDT [facility] Gross Description The specimen is identified with patient's name and date of . Received in formalin, specimen A , ovarian cyst is an aggregate of armenta to pink-armenta fibromembranous tissues, 2.2 x 2.1 x 0.3 cm. Entirely submitted in cassette A1. LJ 11/23/2022 9:48 AM CDT [facility] Microscopic Description Microscopic examination substantiates the above diagnosis. 11/23/2022 9:48 AM CDT [facility] Pathologist Location at [facility] 11/23/2022 9:48 AM CDT [facility] Disclaimer All histochemical and/or immunohistochemical results are interpreted with controls that demonstrate appropriate staining reactions before reporting results. Note on use of immunocytochemistry reagents: This test was developed and its performance characteristic determined by [facility], Department of Laboratory Medicine. It has not [...] interpreted with caution. 11/23/2022 9:48 AM CDT [facility] Embedded Images 11/23/2022 9:48 AM CDT [facility] Pathology/Cytolo gy CYST TISSUE / Unknown 11/21/2022 10:56 PM CDT 11/22/2022 9:00 AM CDT Ary Gray MD LAB - PATHOLOGY/CYT OLOGY ORDERABLES [facility] [address] [place], [place] [id number] * ETT LINE PERFORMABLE (11/21/2022 9:54 PM CDT) Narrative Surjit Baxter APRN-CRNA - 11/21/2022 9:54 PM CDT Surjit Baxter APRN-CRNA 11/21/2022 9:54 PM Endotracheal Tube Placement: Patient Location: OR. Intubation Event Date/Time: 11/21/2022 9:40 PM Procedure: intubation ([id number]). Procedure Section: Sedation: under general anesthesia. Indications [...] PM. Staff Section Anesthesia Provider: Surjit Baxter APRN-MICROCHIP SPECIALIST, Performed the procedure Provider #1: Bryan Patel MD. Bryan Patel MD GENERAL ANESTHESIA ORDERABLES * US PELVIS W TRANSVAG W DOP NON OB (11/21/2022 3:06 PM CDT) Anatomical Region Laterality Modality Pelvis Ultrasound 11/21/2022 3:15 PM CDT Narrative 11/21/2022 3:16 PM CDT PROCEDURE: US PELVIS W TRANSVAG W DOP NON OB, DATE/TIME OF EXAM: 11/21/2022 3:06 PM, LOCATION [facility] INDICATION: R10.2: Pelvic and perineal [...] DATE/TIME OF EXAM: 11/21/2022 3:06 PM, LOCATION [facility] INDICATION: R10.2: Pelvic and perineal [...] URINE QUALITATIVE (11/21/2022 1:48 PM CDT) Pathologist [facility] hCG Qualitative Urine Negative Negative 11/21/2022 1:56 PM CDT [facility] Urine URINE / Unknown Collection / Unknown 11/21/2022 1:48 PM CDT 11/21/2022 1:51 PM CDT Gila Duran APRN-YAMILA LAB - URINALYSI S ORDERABLES Performing Organization Address City/[facility]/ZIP Co de Phone Number [facility] [address] [place] [id number] * CARDIAC EKG ORDER (08/23/2022 9:15 AM CDT) Narrative 08/23/2022 9:15 AM CDT Ordered by an unspecified provider. Scanned Document CARDIAC SERVICES ORD ERABLES * TROPONIN I (08/21/2022 2:15 PM CDT) [facility] Troponin I <0.010 <0.038 ng/mL 08/21/2022 2:53 PM CDT [facility] Blood BLOOD SPECIMEN / Unknown Venipuncture / Unknown 08/21/2022 2:15 PM CDT 08/21/2022 2:27 PM CDT Paige Aguilar DO LAB - CHEMISTRY ORDE RABKALIA [facility] [address] [place] [id number] * CT BRAIN - Stroke (08/21/2022 [...] Event Date/Time: 03/04/2022 10:17 AM Procedure: intubation ([id number]). Procedure Section: Sedation: under general anesthesia. Indications [...] verification. > Dictated by Jaqueline Farias MD (resident in diagnostic radiology). IJing MD have personally reviewed and interpreted this examination/study. > Interpreting Provider: Jing Rios MD on 03/04/2022 5:46 PM Narrative 03/04/2022 5:46 PM CDT PROCEDURE: US PELVIS W TRANSVAG NON OB, DATE/TIME OF EXAM: 03/03/2022 7:55 PM, LOCATION [facility] INDICATION: R10.31: RLQ abdominal pain, rule [...] the right ovary, with scattered vascularity (image [id number]). The ovarian cysts are oriented peripherally. The [...] DATE/TIME OF EXAM: 03/03/2022 7:55 PM, LOCATION [facility] INDICATION: R10.31: RLQ abdominal pain, rule [...] to the right ovary, with scatteredvascularity (image [id number]). The ovarian cysts are oriented peripherally. The [...] verification. > Dictated by Jaqueline Farias MD (resident in diagnostic radiology). Jing Logan MD have personally reviewed and [...] above. > Dictated by Lambert Leung D.O. (Electric Range Preparer) Jing Logan MD have personally reviewed and interpreted this examination/study. > Interpreting Provider: Jing Rios MD on 03/03/2022 2:17 PM Narrative 03/03/2022 2:17 PM CDT PROCEDURE: CT ABDOMEN PELVIS W CONTRAST, DATE/TIME OF EXAM: 03/03/2022 1:50 PM, LOCATION [facility] INDICATION: R10.31: RLQ abdominal pain ADDITIONAL [...] DATE/TIME OF EXAM: 03/03/2022 1:50 PM, LOCATION [facility] INDICATION: R10.31: RLQ abdominal pain ADDITIONAL [...] above. > Dictated by Lambert Leung D.O. (Electric Range Preparer) I, Jing Rios MD have personally reviewed and interpreted this examination/study. > Interpreting Provider: Jing Rios MD on :17 PM Mikayla Sal PA-C CT ORDERABLES * (ABNORMAL) URINALYSIS REFLEX TO MICROSCOPIC NO CULTURE (03/03/2022 11:06 AM CDT) Color UA Yellow Straw, Yellow 03/03/2022 11:36 AM CDT [facility] Clarity UA Clear Clear 03/03/2022 11:36 AM CDT [facility] Specific [place] UA 1.020 1.005 - 1.030 03/03/2022 11:36 AM [facility] pH UA 6.0 5.0 - 8.0 pH 03/03/2022 11:36 AM [facility] Protein UA Negative Negative 03/03/2022 11:36 AM [facility] Glucose UA Negative Negative 03/03/2022 11:36 AM [facility] Ketone UA Negative Negative 03/03/2022 11:36 AM [facility] Bilirubin UA Negative Negative 03/03/2022 11:36 AM [facility] Blood UA 2+(A) Negative 03/03/2022 11:36 AM [facility] Nitrite UA Negative Negative 03/03/2022 11:36 AM [facility] Leukocyte Esterase Trace(A) Negative 03/03/2022 11:36 AM [facility] Urobilinogen UA Negative Negative mg/dL 03/03/2022 11:36 AM [facility] RBC UA 6-10(A) None Seen, 0-2, 3-5 /HPF 03/03/2022 11:36 AM [facility] WBC UA 0-5 None Seen, 0-5 /HPF 03/03/2022 11:36 AM [facility] Squamous Epithelial Cells UA 0-2 None Seen, 0-2, 3-5 /HPF 03/03/2022 11:36 AM [facility] Urine URINE SPECIMEN OBTAINED BY CLEAN CATCH PROCEDURE / Unknown Collection / Unknown 03/03/2022 11:06 AM CDT 03/03/2022 11:12 AM T [facility] - 03/03/2022 11:36 AM CDT Mikayla Sal PA-C LAB - URINALYSIS ORD ERABLES [address] [address], [facility] [phone] * LACTIC ACID BLOOD (03/03/2022 10:02 AM CDT) Lactic Acid-Stat 1.1 <=2.0 mmol/L 03/03/2022 10:33 AM CDT [facility] Blood BLOOD SPECIMEN / Unknown Venipuncture / Unknown 03/03/2022 10:02 AM CDT 03/03/2022 10:08 AM CDT Mikayla Sal PA-C LAB - CHEMISTRY PAPA TORIBIO [facility] [address] [place] [address], [facility] [phone] Care Teams Front End Technician Relationship Specialty Start Date End Date Daisy Hansk, BOROUGH COORDINATOR-THIRD LOADER [address] [phone] PCP - General Nurse Practitioner 02/06/24
--- OUTSIDE RECORDS SUMMARY | 2024-06-18 15:51 | XMS_ITS | Data Portability ---
Author Organization [place] - [facility] [employer] Main Office Address [address] [place] [address] Assessment No assessment recorded. Plan of Treatment Reminders Order Date Submit Date Provider Last Modified By Organization Details Last Modified Time Details Appointments None recorded. Lab None recorded. Referral neurologist referral - Please call the pt to make an appt. Thank you 2022 023 [email or web address] [facility] - Neurology, [facility] [place], [address], 3 19:30:15 physical therapist referral 2022 023 [email or web address] Not available 11:20:46 Procedures None recorded. Surgeries None recorded. Imaging None recorded. Medication Orders None recorded. Patient TargetsNo targets recorded. Patient InstructionsNo instructions recorded. Reason for Referral Neurologist Referral for [place] palsy of right side of face Please call the pt to make an appt. Thank you Referring Physician: Nadia Gu[facility], Encounter Date: 08/29/2022 Physical Therapist Referral for [place] palsy of right side of face Referring Physician: Nadia Guzm[facility], Encounter Date: 08/29/2022 Results Created Date Observation Date Name Description Value Unit Range Abnormal Flag Note LastModifiedBy Organization Detail LastModifiedTime 03/19/2003/19/2023 XR, finge r(s) No observ ation record ed. [email or web address] [address], [place], [address], 09/13/2023 16:48:50 04/08/20 23 04/06/2023 MRI, hand, w/o contr ast No observ ation record ed. [email or web address] [address], [place], [address], 09/13/2023 16:49:14 Result Notes None recorded. Problems Name Problem SNOMED Code Status Onset Date Resolution Date Notes Provider Name and Address Organization Details Recorded Time Pain in throat 788402078 Active Not Available [facility] 3 08:50:21 Insomnia 610102898 Active Not Available [facility] 3 08:50:22 Gastroente ritis 04785202 Active Not Available [facility] 3 08:50:22 Difficulty sleeping 096031001 Active Not Available [facility] 3 08:50:22 Bronchitis 30372348 Active Not Available [facility] 3 08:50:22 Depressive disorder 25794168 Active Not Available [facility] 3 08:50:22 Acute pharyngiti s 032615609 Active Not Available [facility] 3 08:50:22 Sinusitis 73853855 Active Not Available [facility] 3 08:50:22 Menorrhagi a 321131167 Active Not Available [facility] 3 08:50:22 Acanthosis nigricans 087647691 Active Not Available [facility] 3 08:50:22 Contact dermatitis 36593635 Active Not Available [facility] 3 08:50:22 Obesity 597344917 Active Not Available [facility] 3 08:50:22 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 3 13:25:17 Anxiety 54627309 Active 2022 Sarah Martin MD [address], [place], [address] , [facility] [employer] [facility] 3 11:45:55 Pain in finger of left hand 1049292267916 05 Active 2022 Sarah Martin MD [address] [facility], [facility] [address], [place], [address] , [place] [facility] [employer] [facility] 3 11:46:41 Problem Notes None recorded. Procedures Surgical History None recorded. Imaging Results Imaging Date Name Status LastModified by Organiz ation Details LastModified Time 03/19/2023 XR, finger(s) completed [address] [place] [address] [place] [address], [address], 09/13/2023 16:48:50 04/06/2023 MRI, hand, w/o contrast completed [address] [facility] [address], [place], [address], 09/13/2023 16:49:14 Procedure Notes None recorded. Medical Equipment None Reported. Allergies No known drug allergies Medications Name Sig Start Date Stop Date Status Note LastModified by Organization Details LastModified Time trazodone 50 mg tablet Take 3 tablets every day by oral route at bedtime. 02/18 completed Not Available Not Available Not Available azithromyci n 250 mg tablet 2 tabs po qd x 1 day then 1 tab po qd x 4 days 06/06 completed Not Available Not Available Not Available ibuprofen 800 mg tablet TAKE 1 TABLET PO Q 8 HOURS PRN P 05/21 completed Not Available Not Available Not Available alprazolam 1 mg tablet 1/2 to 1 tab po qhs prn insomnia 08/21 completed Not Available Not Available Not Available sumatriptan 25 mg tablet TAKE 1 TABLET BY MOUTH AT ONSET OF SYMPTOMS. MAY REPEAT IN 2 HOURS FOR 1 DOSE. DO NOT EXCEED 200 MG IN 24 HOURS active Not Available Not Available No t Available prednisone 20 mg tablet Take 2 tablets every day by oral route for 5 days. 08/21 completed Not Available Not Available Not Available acetaminoph en 300 mg-codeine 30 mg tablet TAKE 1 TABLET PO Q 6 HOURS PRN P active Not Available Not Available No t Available doxepin 10 mg capsule Take 1 capsule every day by oral route at bedtime. 08/21 completed Not Available Not Available Not Available ciprofloxac in 500 mg tablet 07/29 completed Not Available Not Available Not Available sulfamethox azole 800 mg-trimetho prim 160 mg tablet Take 1 tablet every 12 hours by oral route for 3 days. active Not Available Not Available No t Available tramadol 50 mg tablet TK 1 T PO Q 6 H PRN P 11/13 completed Not Available Not Available Not Available ketorolac 30 mg/mL (1 mL) injection solution Inject 1 mL every 6 hours by intramusc ular route. 08/29 completed Not Available Not Available Not Available temazepam 7.5 mg capsule active Not Available Not Available Not Available alprazolam 0.5 mg tablet Take 1.5 tablets every day by oral route at bedtime. 02/18 completed Not Available Not Available Not Available amoxicillin 875 mg tablet Take 1 tablet every 12 hours by oral route for 10 days. 08/29 completed Not Available Not Available Not Available amitriptyli ne 25 mg tablet 1 po qhs 03/09 completed Not Available Not Available Not Available triamcinolo ne acetonide 0.1 % topical ointment Apply 1 applicati on twice a day by topical route as needed for 7 days. 11/13 completed Not Available Not Available Not Available diclofenac sodium 75 mg tablet,rosalind yed release active Not Available Not Available Not Available zolpidem 5 mg tablet Take 1 tablet every day by oral route at bedtime. 08/21 completed Not Available Not Available Not Available zolpidem 10 mg tablet Take 1 tablet every day by oral route. 08/21 completed Not Available Not Available Not Available ondansetron 4 mg disintegrat ing tablet Take 2 tablets every 12 hours by oral route for 7 days. active Not Available Not Available No t Available fluticasone propionate 50 mcg/actuati on nasal spray,suspe nsion Gormania 1 spray every day by intranasa l route for 30 days. active Not Available Not Available No t Available loratadine 10 mg tablet Take 1 tablet every day by oral route. 11/13 completed Not Available Not Available Not Available escitalopra m 10 mg tablet Take 1.5 tablets every day by oral route. 08/21 completed Not Available Not Available Not Available Wellbutrin XL 300 mg 24 hr tablet, extended release Take 1 tablet(s) every day by oral route. 03/09 completed Not Available Not Available Not Available topiramate 50 mg tablet Take 1 tablet twice a day by oral route for 30 days. active Not Available Not Available No t Available Wellbutrin XL 450MG Q DAY 02/18 completed 450MG Not Available Not Available Not Available Lo Loestrin Fe 1 mg-10 mcg (24)/10 mcg (2) tablet Take 1 tablet every day by oral route. 02/16 completed Not Available Not Available Not Available Vitals Date Recorded Body mass index (BMI) Body mass index (BMI) Body height Body height Oxygen saturation Oxygen saturation in Arterial blood by Pulse oximetry Heart rate Body temperature Body weight Body weight Systolic blood pressure Diastolic blood pressure Provider Name and Address Organization Details Last Updated DateTime 3 39.1 kg/m2 39.9 kg/m2 165.1 cm 165.1 cm 96 % 96 % 94 /min 98.2 [degF] 528706. 21 g 978687. 17 g 98 mm[Hg] 72 mm[Hg] Not Available [facility] 3 08:49:21 Date Recorded Body weight Body mass index (BMI) Body height Body temperature Heart rate Oxygen saturation Oxygen saturation in Arterial blood by Pulse oximetry Systolic blood pressure Diastolic blood pressure Provider Name and Address Organization Details Last Updated DateTime 3 308515. 65 g 38.1 kg/m2 165.1 cm 96.8 [degF] 81 /min 98 % 98 % 110 mm[Hg] 78 mm[Hg] Nickie Montenegro RN [facility] [employer] 3 08:17:02 Social History Question Answer Notes LastModified by Organizat ion Details LastModified Time Tobacco Smoking Status Never Smoker Emilie shah [place] [employer] 08/29/2022 08:10:56 Do You Have An Advance Directive? No [id number] Information not available 07/04/2022 What Is Your Level Of Alcohol Consumption? None [id number] Information not available 07/04/2022 Do You Wear A Helmet When Biking? Yes [email or web address] Information not available 08/29/2022 What Is Your Level Of Caffeine Consumption? Occasional [id number] Information not available 07/04/2022 In The 14 Days Before Symptom Onset, Have You Had Close Contact With A Laboratory-confir med COVID-19 While That Case Was Ill? No [email or web address] Information not available 08/29/2022 In The 14 Days Before Symptom Onset, Have You Had Close Contact With A Person Who Is Under Investigation For COVID-19 While That Person Was Ill? No [email or web address] Information not available 08/29/2022 What Type Of Diet Are You Following? REGULAR [id number] Information not available 07/04/2022 Which Illicit Or Recreational Drugs Have You Used? Marijuana [email or web address] Information not available 08/29/2022 What Is The Highest Grade Or Level Of School You Have Completed Or The Highest Degree You Have Received? [id number] [email or web address] Information not available 08/29/2022 What Is Your Occupation? [employer] [email or web address] Information not available 08/29/2022 Have There Been Any Changes To Your Family Or Social Situation? No Information no t available 08/29/2022 What Is The Fluoride Status Of Your Home? Unknown [email or web address] Information not available 08/29/2022 Are There Any Guns Present In Your Home? No Information not available 08/29/2022 Do You Use Insect Repellent Routinely? Yes [email or web address] Information not available 08/29/2022 Where Do You Live? [facility] [email or web address] Information not available 08/29/2022 Do You Have A Medical Power Of Senior Interior Designer? No Information not available 08/29/2022 Do You Have Any Pets? No [email or web address] Information not available 08/29/2022 What Is Your Relationship Status? Domestic Partner [id number] Information not available 07/04/2022 Do You Use Your Seat Belt Or Car Seat Routinely? Yes [email or web address] Information not available 08/29/2022 Do You Have Smoke And Carbon Monoxide Detectors In Your Home? Yes Information not available 08/29/2022 Are You Passively Exposed To Smoke? No [email or web address] Information no t available 08/29/2022 Are There Any Smokers In Your House? No [email or web address] Information not available 08/29/2022 Do You Participate In Social Media? Yes Information not available 08/29/2022 Do You Feel Stressed (tense, Restless, Nervous, Or Anxious, Or Unable To Sleep At Night)? [id number] [email or web address] Information not available 08/29/2022 Do You Use Any Illicit Or Recreational Drugs? Yes [email or web address] Information not available 08/29/2022 Do You Use Sunscreen Routinely? Yes [email or web address] Information not available 08/29/2022 Have You Recently Traveled Abroad? No [email or web address] Information not available 08/29/2022 Have You Used IV Drugs? No [email or web address] Information not available 08/29/2022 Are You Currently In School? No Information not available 08/29/2022 Do You Have Any Dietary Restrictions? No [email or web address] Information not available 08/29/2022 Do You Or Have You Ever Used Any Other Forms Of Tobacco Or Nicotine? No [email or web address] Information not available 08/29/2022 Sex: Female Functional Status Question Answer Note LastModified by [employer] ion Details LastModified Time What is your exercise level? Occasional [id number] Information not available 07/04/2022 Mental Status None recorded. Family History Nothing Reported Notes:mother-cervical cancer Medical History No medical history recorded. Gynecological History Statement/Question Response How many live births 0 Abnormal Pap N Flow Moderate Date of LMP 04/30/2021 Dislike of Light during Menstrual Headac he N Menses Monthly Y Date of Last Pap Duration of Flow (days) 6 Current Control Method Implant Age at Menarche 14 Obstetrics History GPAL:G 0 P 0 0 0 0 Immunizations Vaccine Type Date Status Note Provider Nam e and Address Organization Details Recorded Time HPV, unspecified formulation 3 completed Not Available [facility] 07/04/2022 08:54:59 HPV, unspecified formulation 3 completed Not Available [facility] 07/04/2022 08:54:59 meningococcal ACWY, unspecified formulation 3 completed Not Available [facility] 07/04/2022 08:54:59 Tdap 2 completed Not Available [facility] 07/04/2022 08:54:59 meningococcal MCV4P 6 completed Not Available [facility] 07/04/2022 08:54:59 HPV, quadrivalent 5 completed Not Available [facility] 07/04/2022 08:54:59 Influenza, split virus, trivalent, PF 3 completed Not Available [facility] 07/04/2022 08:54:59 Past Encounters Encounter ID Performer Location Encounter Start Date Encounter Closed Date Diagnosis/Indication Diagnosis SNOMED-CT Code Diagnosis ICD10 Code Diagnosis Note [id number] [facility] Primary [facility] [place] [address] [place] [address] 05/02/2021 00:00:00 05/02/2021 13:43:53 [id number] [facility] Primary [facility] [place] [address] [facility] [address] [place] [address] 05/19/2021 00:00:00 05/19/2021 17:18:45 [id number] GRIFFIN Rai [facility] [place] [address] [facility] [address] [place] [address] 08/29/2022 08:09:19 08/29/2022 08:48:51 [place] palsy of right side of face [id number] 9625888 G51.0 Continue artificial tears and genteal tears ointment at night.Advi sed patient that most symptoms will resolve within 6 months but can be more or less and some deficits can be permanent. Will get her started with PT and neurology referral for f/u.Pt. will check with HR and bring paperwork needed for FMLA/disab ility. First missed day of 08/21/22. Health Concerns Section Related Observation LastModified by Organization Detai ls LastModified Time None Recorded Concern Status LastModified by Organization Details LastModified Time None Recorded Advance Directives Directive N: Payers Encounter Date Sequence Insurance Name Policy Number Policy Moore Covered Member ID Moore Member ID Guarantor Name 08/29/2022 1 [facility] - DOS ON OR AFTER 20 (MEDICAID REPLACEMENT - HMO) Brandy Diaz [id number] Brandy Diaz Notes Date Note Type Note Provider Name and Address Organization Details Recorded Time 05/19/2021 text/html COVID-19 Symptom s September 2019Reported bypatient.COVID-19 Signs and Symptomscough worsening;fever worsening;chills worsening;muscle pain worsening;headache worsening;congestio n worsening Contacts and Exposureclose contact with a confirmed or suspected case of COVID-19 Not Available [employer] 05/19/2021 17:18:45 08/29/2022 text/html Pt. 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 She has been to eye doctor and they have given her eye drops and gel she has been using at night time. Still having drooping of right side of face. GRIFFIN Rai [address] [facility], [facility] [address], [place], [address], [employer] 08/29/2022 08:52:12 OBGyn Episode No OBEpisode recorded.
--- OUTSIDE RECORDS SUMMARY | 2024-06-18 15:51 | XMS_ITS | Referral Summary ---
Author Organization [facility] Address [address] [facility] [place] [address] Care Team Providers Care Industrial Refrigeration Mechanic Name Role Phone Daisy Hanks Arjun REYES-YAMILA Primary Care Provider Source Comments [facility],non-owned Affiliates and Associated Physician Practices is amultiple site organization consisting of ambulatory clinics and hospital sitesin [place], [place], [place] and [place]. This disclosure is being madepursuant to the Care Everywhere program and may not contain all information available regarding this patient. Last updated 18.[facility] [employer] Allergies Active Allergy Reactions Criticality Noted Date [...] care, and heating? Not very hard 03/13/2024 [facility] [place] of Occupat ional Health - Occupational Stress [...] place to sleep or slept in a assisted (including now)? Patient declined 01/21/2024 Housing Stability [...] any time in the past [facility], were you homeless or living in a assisted (including now)? No 03/13/2024 Sex and Gender Information Value Date Recorded Sex Assigned at Not on file Gender Identity Not on file Sexual Orientation Not on file Last Filed Vital Signs Vital Sign Reading Time Taken Comments Blood Pressure 131/80 03/13/2024 7:27 AM MONOMER RECOVERY SUPERVISOR Pulse 75 03/13/2024 7:27 AM MONOMER RECOVERY SUPERVISOR Temperature 36.7 C (98 F) 03/13/2024 7:27 AM MONOMER RECOVERY SUPERVISOR Respiratory Rate 18 03/13/2024 7:27 AM MONOMER RECOVERY SUPERVISOR Oxygen Saturation 100% 03/13/2024 7:27 AM MONOMER RECOVERY SUPERVISOR Inhaled Oxygen Concentration - - Weight 131.5 kg (290 lb) 03/12/2024 10:39 AM MONOMER RECOVERY SUPERVISOR Height 167.6 cm (5' 6 ) 03/12/2024 10:39 AM MONOMER RECOVERY SUPERVISOR Body Mass Index 46.81 03/12/2024 10:39 AM MONOMER RECOVERY SUPERVISOR Functional Status Functional Status Response Date of [...] 1:25 AM 03/04/2022 7:19 PM Care Teams Industrial Refrigeration Mechanic Relationship Specialty Start Date End Date Daisy Hanks, WAREHOUSE PACKAGING SUPERVISOR-ADULT HEALTH CLINICAL NURSE SPECIALIST [address] [id number] PCP - General Nurse Practitioner 02/06/24
--- NOTE | 2024-06-18 16:16 | ED_ITS ---
HPI - Extremity Injury (Lower) General Chief Complaint: Extremity Injury, Lower Stated Complaint: LEFT ankle injury from fall Time Seen by Provider: 06/18/24 15:44 History of Present Illness HPI Narrative: Patient was walking her dog when she slipped on the ice and fell, rolling her left ankle. Related Data Allergies Allergy/AdvReac Type Severity Reaction Status Date / Time No Known Allergies Allergy Unverified 06/18/24 14:22 Review of Systems Review of Systems: All systems reviewed & are unremarkable except as noted in HPI and below PMFSH Past Medical History Medical History (Updated 06/18/24 @ 16:59 by Chela Alberto MD) Gallstones and inflammation of gallbladder without obstruction Skin irritation due to topical agent Morbid obesity with BMI of 45.0-49.9, adult Migraines Surgical History Surgical History (Updated 01/30/24 @ 09:57 by Jd Vance CMA) History of pelvic surgery 3 surgeries for ovarian torsion Family History Family History (Updated 01/30/24 @ 10:00 by Jd Vance CMA) Mother Alcoholism Cervical cancer Vulva cancer Depression Father Alcoholism Lung cancer Sibling Alcoholism Asthma Grandparent Depression Grandparent Breast cancer Other Breast cancer Other Malignant neoplasm of prostate Social History Social History (Updated 01/30/24 @ 10:00 by Jd Vance CMA) Smoking status: Never smoker Alcohol intake: never Substance use: never Exam Narrative: EXAMINATION OF ORGAN SYSTEMS/BODY AREAS: Constitutional: Vital signs per nursing GENERAL:[No acute distress, non-toxic appearing.] HEAD: Normal with no signs of head trauma. EYES: EOMI, conjunctiva normal ENT: Hearing grossly intact LUNGS: Nonlabored breathing. HEART: [Regular rate and rhythm], normal DP pulse ABD: [Soft], [nontender to palpation] EXT: Tenderness to palpation to the lateral malleolus SKIN: [No rashes or lesions.] NEURO: [Alert and oriented x 3. No gross focal sensory or strength deficits.] PSYCH: Normal affect Course Vital Signs Vital signs: Vital Signs Temperature 98.0 F 06/18/24 14:42 Pulse Rate 80 06/18/24 14:42 Respiratory Rate 16 06/18/24 14:42 Blood Pressure 142/57 H 06/18/24 14:42 Pulse Oximetry 100 06/18/24 14:42 Oxygen Delivery Room Air 06/18/24 14:42 Temperature 98.0 F 06/18/24 14:42 Pulse Rate 80 06/18/24 14:42 Respiratory Rate 16 06/18/24 14:42 Blood Pressure 142/57 H 06/18/24 14:42 Pulse Oximetry 100 06/18/24 14:42 Oxygen Delivery Room Air 06/18/24 14:42 Procedures Orthopedic Splinting/Casting Injury #1: Splinting/Casting Date: 06/18/24 Side: left Lower Extremity Injury Location: ankle Lower Extremity Immobilizer: posterior splint and stirrup splint Splint: customized in ED Pre-Procedure Neuro Vascular Exam: normal Post-Procedure Neuro Vascular Exam: normal Other Orthopedic Equipment: crutches MDM - Extremity Injury (Lower) MDM Narrative Medical decision making narrative: Patient presents here after ankle injury, she is neurovascularly intact, there is some tenderness to the lateral malleolus, x-ray does show unfortunately lateral possibly posterior malleolus fractures She is placed in a stirrup and posterior short-leg splint, given crutches and follow-up to Orthopedics with return precautions. Discharge Plan Discharge Clinical Impression: Ankle fracture Patient Disposition: Home, Self-Care Condition: Stable Instructions: Ankle Fracture (ED) Additional Instructions: Please try to keep your leg in the splint, and follow-up with orthopedic surgeon. Try to keep your leg propped up as much as possible, you can take pain medication as needed, and come back to the ER for any further issues. Patient Language: Lithuanian Prescriptions: New acetaminophen [Tylenol Extra Strength] 500 mg tablet 1,000 mg PO Q6H PRN (Reason: pain) Qty: 50 0RF ibuprofen 600 mg tablet 600 mg PO TID PRN (Reason: fever or pain) Qty: 30 0RF No Action rizatriptan 5 mg tablet See Rx Instructions PO .COMPLEX Qty: 9 5RF Rx Instructions: take 1 tablet at onset of headache; if no relief, may repeat 1 tablet after at least 2 hrs PO Follow-up/Referrals: Keenan Sheikh MD [Physician] - 2 Days Ramirez,GRIFFIN Boss [Primary Care Provider] -
[2024-06-18] MEDS: IBUPROFEN 600 MG TABLET PO (16:21)
[2024-06-18] MEDS: HYDROcodone/acetaminophen (*CRX) 5-325 MG TABLET 1 TAB PO (16:21)
== END 2024-06-18 17:15 | disposition home or self-care (01) ==
PROVIDERS: Emergency Provider Emergency Medicine; PCP Physician Assistant
DX: S82.832A Other fracture of upper and lower end of left fibula, initial encounter for closed fracture (principal); E66.01 Morbid (severe) obesity due to excess calories; Z68.43 Body mass index [BMI] 50.0-59.9, adult; W00.0XXA Fall on same level due to ice and snow, initial encounter
CPT/HCPCS: 29515; 73600; 99284; A9270

== ENCOUNTER 2024-10-15 10:54 | Emergency (ER) | payer OTHER, SELFPAY ==
--- NOTE | ~2024-10-15 | US_ITS ---
EXAMINATION: US pelvic complete w TV DATE: 10/15/2024 12:29 INDICATION: Right lower quadrant abdominal pain. Variant cysts. TECHNIQUE: Multiple transabdominal and endovaginal sonographic images of the pelvis were obtained. COMPARISON: None. FINDINGS: The uterus measures 7.6 x 2.9 x 3.7 cm. The endometrial complex measures 9-10 mm in thickness. The r ight ovary measures 4.8 x 2.8 x 3.5 cm. The left ovary measures 2.4 x 2.5 x 3.7 cm. There are multipl e bilateral anechoic adnexal cysts measuring up to 1.8 cm maximal diameter on the left and 1.9 cm on the right. There is normal vascular flow in the ovaries. There is small amount of anechoic likely phy siologic free fluid in the pelvis. IMPRESSION: 1. Multiple bilateral adnexal cysts with vascular flow in both ovaries on color Doppler. Reviewed, dictated and finalized at location A.
[2024-10-15 10:56] VITALS: BP 136/94; PULSE 100; RESP 16; TEMP 36.5; O2SAT 100
--- NOTE | 2024-10-15 11:10 | ED.ABDPAIN ---
HPI - Abdominal Pain General Chief Complaint: Abdominal Pain Stated Complaint: R ovary pain hx 2 ovarian torsion Time Seen by Provider: 10/15/24 10:55 Source: patient Mode of arrival: ambulatory Limitations: no limitations History of Present Illness HPI narrative: Patient is a 29-year-old female who presents the ED with report of right lower quadrant abdominal pain. Patient reports pain began last night around 5:00 p.m.. States pain was more severe last night, has improved slightly. She took some Tylenol last night without much improvement. She has history of ovarian torsion x2 in her right ovary with subsequent oophoropexy procedure, which was performed at [facility]. She states this feels similar to her previous torsions. She took Tylenol last night for pain. Has not had anything for pain today. She reports mild nausea. Denies vomiting, diarrhea, constipation, urinary complaints, fevers. Related Data Allergies Allergy/AdvReac Type Severity Reaction Status Date / Time No Known Allergies Allergy Verified 08/06/24 10:44 Review of Systems Review of Systems: All systems reviewed & are unremarkable except as noted in HPI. All systems reviewed & are unremarkable except as noted in HPI and below PMFSH Past Medical History Medical History Gallstones and inflammation of gallbladder without obstruction Skin irritation due to topical agent Morbid obesity with BMI of 45.0-49.9, adult Migraines Surgical History Surgical History History of endoscopy 2021, 2022 History of laparoscopy 2023 History of pelvic surgery 3 surgeries for ovarian torsion Family History Family History Mother Alcoholism Cervical cancer Vulva cancer Depression Father Alcoholism Lung cancer Sibling Alcoholism Asthma Grandparent Depression Grandparent Breast cancer Other Breast cancer Other Malignant neoplasm of prostate Social History Social History Smoking status: Never smoker Alcohol intake: never Substance use: never Exam Narrative: GENERAL: Well appearing, morbidly obese with BMI of 42.2, non-toxic, in no acute distress. HEAD: Normocephalic, atraumatic. RESPIRATORY: Airway patent, respirations nonlabored. Clear to auscultation bilaterally, no rales, rhonchi, wheezing. CARDIOVASCULAR: Regular rate and rhythm without murmurs, rubs, or gallops. ABDOMINAL: Soft, mild focal TTP in RLQ, no rebound, nondistended. Normoactive BS. MUSCULOSKELETAL: Moves all extremities. No gross deformities. SKIN: Warm, dry, normal color. NEURO: A&O X3. Speech clear. PSYCHIATRIC: Appropriate mood and affect. Normal interaction. Course Vital Signs Vital signs: Vital Signs Temperature 97.7 F 10/15/24 10:56 Pulse Rate 100 10/15/24 10:56 Respiratory Rate 16 10/15/24 10:56 Blood Pressure 136/94 H 10/15/24 10:56 Pulse Oximetry 100 10/15/24 10:56 Oxygen Delivery Room Air 10/15/24 10:56 Temperature 97.7 F 10/15/24 10:56 Pulse Rate 65 10/15/24 13:42 Respiratory Rate 16 10/15/24 13:42 Blood Pressure 128/65 10/15/24 13:42 Pulse Oximetry 100 10/15/24 13:42 Oxygen Delivery Room Air 10/15/24 10:56 MDM - Abdominal Pain MDM Narrative Medical decision making narrative: Patient presented to ED with c/o RLQ abd pain that began last night, hx of ovarian torsion that felt similar. VSS upon arrival. Patient afebrile. In NAD. Laboratory studies obtained and unremarkable. No leukocytosis or anemia. Stable electrolytes. Stable kidney function. UA is clear. Urine negative. Pelvic ultrasound obtained and showing bilateral ovarian cysts, no evidence of rupture, good vascular blood flow to both ovaries. No evidence of torsion. Discussed lab and imaging findings, overall reassuring workup with patient. Feel pain is mostly related to ovarian cyst. Low suspicion for appendicitis, patient denies fevers, no leukocytosis. Discussed obtaining CT abdomen/pelvis to further evaluate for intra-abdominal process, patient in agreement with foregoing this time. Patient is feeling improved with supportive therapy in the ED. Feel she is safe for discharge home at this time. Recommended close follow-up with OBGYN for further evaluation, given strict return precautions. She agrees with plan. Medical Records Attestation: I reviewed the patient's medical records. Lab Data Attestation: I reviewed the patient's lab results. 10/15/24 11:12 10/15/24 11:12 Labs: Lab Results 10/15/24 10/15/24 Range/Units 11:12 12:21 WBC 8.3 (4.5-10.0) K/mm3 RBC 4.57 (4.2-5.4) M/mm3 Hgb 13.8 (12.0-15.0) g/dL Hct 41.2 (37.0-47.0) % MCV 90.2 (80-100) fl MCH 30.2 (26-34) pg MCHC 33.5 (32-36) g/dl RDW 11.9 (11.5-14.5) % Plt Count 303 (150-375) k/mm3 MPV 9.5 (7.4-10.4) fl Immature Gran % (Auto) 0.1 (0-0.5) % Neut % (Auto) 64.0 (45.5-73.1) % Lymph % (Auto) 27.9 (18.3-44.2) % Bartholomew % (Auto) 7.0 (2.6-8.5) % Eos % (Auto) 0.6 (0-4.4) % Baso % (Auto) 0.4 (0.2-1.2) % Lymph # (Auto) 2.32 (0.9-3.2) K/mm3 Bartholomew # (Auto) 0.6 (0.1-0.6) K/mm3 Eos # (Auto) 0.1 (0-0.3) K/mm3 Baso # (Auto) 0.0 (0.0-0.1) K/mm3 Abs Immat Gran (auto) 0.01 (0.00-0.031) K/mm3 Absolute Neuts (auto) 5.3 (1.3-6.7) K/mm3 Absolute Nucleated RBC 0.000 (0.0-0.012) K/mm3 Nucleated RBC % 0.0 (0.0-0.2) % Sodium 139 (137-145) mmol/L Potassium 3.8 (3.4-5.0) mmol/L Chloride 108 H (98-107) mmol/L Carbon Dioxide 22 (22-30) mmol/L Anion Gap 9 (4-12) mmol/L BUN 7 (7-17) mg/dL Creatinine 0.61 L (0.7-1.0) mg/dL Estim Creat Clear Calc 155 ml/min Estimated GFR > 60 (59 - ) Glucose 99 (65-110) mg/dL Calcium 9.0 (8.4-10.2) mg/dL Total Bilirubin 0.5 (0.2-1.3) mg/dL AST 30 (14-36) U/L ALT 29 (6-35) U/L Alkaline Phosphatase 75 (38-126) U/L Total Protein 8.0 (6.3-8.2) g/dL Albumin 4.5 (3.5-5.1) g/dL Urine Color Yellow (Yellow) Urine Appearance Clear (Clear) Urine pH 6.5 (5.0-9.0) Ur Specific [place] 1.007 (1.001-1.035) Urine Protein Negative (Negative) mg/dL Urine Glucose (UA) Negative (Negative) mg/dL Urine Ketones Negative (Negative) mg/dL Ur Blood (Man) Negative (Negative) Urine Nitrate Negative (Negative) Urine Bilirubin Negative (Negative) Urine Urobilinogen 0.2 (<2.0) mg/dL Leukocyte Esterase Rfl Negative (Negative) ORLY/UL POC Urine HCG, Qual Negative (Negative) Urine Test Negative Imaging Data Attestation: I personally reviewed and interpreted this imaging study as follows: Radiologist's impression: ITS Impressions Pelvic/Transvag US 10/15/24 12:43 IMPRESSION: 1. Multiple bilateral adnexal cysts with vascular flow in both ovaries on color Doppler. Discharge Plan Discharge Clinical Impression: Right lower quadrant abdominal pain Ovarian cyst Qualifiers: Laterality: bilateral Qualified Code(s): N83.201 - Unspecified ovarian cyst, right side Patient Disposition: Home Condition: Stable Instructions: Antibiotic Form, Ovarian Cyst (ED), Abdominal Pain (ED) Additional Instructions: Your imaging here did not show any evidence of torsion. You do have cysts on bilateral ovaries. Continue Tylenol and ibuprofen as needed for pain. Follow-up with OBGYN for further evaluation if needed. Return to the ED if you experience worsening or severe pain, unable to keep down food or drink, fevers, or any other symptoms of concern. Patient Language: Brazilian Prescriptions: No Action rizatriptan 5 mg tablet See Rx Instructions PO .COMPLEX Qty: 9 5RF Rx Instructions: take 1 tablet at onset of headache; if no relief, may repeat 1 tablet after at least 2 hrs PO acetaminophen [Tylenol Extra Strength] 500 mg tablet 1,000 mg PO Q6H PRN (Reason: pain) Qty: 50 0RF ibuprofen 600 mg tablet 600 mg PO TID PRN (Reason: fever or pain) Qty: 30 0RF Follow-up/Referrals: Daisy Hanks NP [Primary Care Provider] - Time of Disposition: 13:21
[2024-10-15 11:20] LABS: Basophils Percent Auto 0.4 % (0.2-1.2); Eosinophils Absolute Auto 0.1 K/mm3 (0-0.3); Eosinophils Percent Auto 0.6 % (0-4.4); Hematocrit 41.2 % (37.0-47.0); Hemoglobin 13.8 g/dL (12.0-15.0); Immature Granulocyte Absolute 0.01 K/mm3 (0.00-0.031); Immature Granulocyte Percent A 0.1 % (0-0.5); Lymphocytes Absolute Auto 2.32 K/mm3 (0.9-3.2); Lymphocytes Percent Auto 27.9 % (18.3-44.2); Mean Corpuscular HGB Conc 33.5 g/dl (32-36); Mean Corpuscular Hemoglobin 30.2 pg (26-34); Mean Corpuscular Volume 90.2 fl (80-100); Mean Platelet Volume 9.5 fl (7.4-10.4); Monocytes Absolute Auto 0.6 K/mm3 (0.1-0.6); Neutrophils Absolute Auto 5.3 K/mm3 (1.3-6.7); Platelet Count Result 303 k/mm3 (150-375); Red Blood Count 4.57 M/mm3 (4.2-5.4); Red Cell Distribution Width 11.9 % (11.5-14.5); White Blood Count 8.3 K/mm3 (4.5-10.0)
[2024-10-15 11:23] LABS: Add Urine Microscopic? NO; Appearance Urine Clear (Clear); Bilirubin Urine Negative (Negative); Blood Urine Negative (Negative); Color Urine Yellow (Yellow); Glucose Urine UA Negative (Negative); Ketones Urine Negative (Negative); Leukocyte Esterase Ur Negative LEU/UL (Negative); Nitrate Urine Negative (Negative); Protein Urine Negative (Negative); Specific Grav Ur 1.007 (1.001-1.035); Urobilinogen Urine 0.2 mg/dL (<2.0); pH Urine 6.5 (5.0-9.0)
[2024-10-15 11:31] LABS: Alanine Aminotransferase 29 U/L (6-35); Albumin Level 4.5 g/dL (3.5-5.1); Alkaline Phosphatase 75 U/L (38-126); Anion Gap 9 mmol/L (4-12); Aspartate Amino Transferase 30 U/L (14-36); Bilirubin,Total 0.5 mg/dL (0.2-1.3); Blood Urea Nitrogen 7 mg/dL (7-17); Carbon Dioxide 22 mmol/L (22-30); Chloride 108 mmol/L (98-107); Estimated CRCL calculation 155 ml/min; Estimated Glomerular Filt Rate > 60; Glucose 99 mg/dL (65-110); Potassium 3.8 mmol/L (3.4-5.0); Sodium 139 mmol/L (137-145)
--- OUTSIDE RECORDS SUMMARY | 2024-10-15 11:53 | XMS_ITS | Data Portability ---
Author Organization [place] [facility] [employer], Main Office Address [address] [place] [address] Assessment No assessment recorded. Plan of Treatment Reminders Order Date Submit Date Provider Last Modified By Organization Details Last Modified Time Details Appointments None recorded. Lab None recorded. Referral neurologist referral - Please call the pt to make an appt. Thank you 2022 023 [email or web address] [facility] - Neurology, [facility] [place], [address], 3 19:30:15 physical therapist referral 2022 023 [email or web address] Not available 11:20:46 Procedures None recorded. Surgeries None recorded. Imaging None recorded. Medication Orders None recorded. Patient TargetsNo targets recorded. Patient InstructionsNo instructions recorded. Reason for Referral Neurologist Referral for Bel ls palsy of right side of face Please call the pt to make an appt. 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 [email or web address] [address], [place], [address], 09/13/2023 16:48:50 04/08/20 23 04/06/2023 MRI, hand, w/o contr ast No observ ation record ed. [email or web address] [address], [place], [address], 09/13/2023 16:49:14 Result Notes None recorded. Problems Name Problem SNOMED Code Status Onset Date Resolution Date Notes Provider Name and Address Organization Details Recorded Time Pain in throat 683110603 Active Not Available [facility] 3 08:50:21 Insomnia 695855730 Active Not Available [facility] 3 08:50:22 Gastroente ritis 01127605 Active Not Available [facility] 3 08:50:22 Difficulty sleeping 012765639 Active Not Available [facility] 3 08:50:22 Bronchitis 08808506 Active Not Available [facility] 3 08:50:22 Depressive disorder 94220498 Active Not Available [facility] 3 08:50:22 Acute pharyngiti s 472602321 Active Not Available [facility] 3 08:50:22 Sinusitis 13373374 Active Not Available [facility] 3 08:50:22 Menorrhagi a 809199440 Active Not Available [facility] 3 08:50:22 Acanthosis nigricans 763868704 Active Not Available [facility] 3 08:50:22 Contact dermatitis 26763105 Active Not Available [facility] 3 08:50:22 Obesity 571848576 Active Not Available [facility] 3 08:50:22 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 Not Available [facility] 3 08:50:22 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 5775654248786 9108 Active 2022 GRIFFIN Rai [address] [address], [place], [address] , [email or web address] [facility] [employer] 3 13:25:17 Anxiety 88960305 Active 2022 Sarah Martin MD [address], [place], [address] , [email or web address] [facility] [employer] [facility] 3 11:45:55 Pain in finger of left hand 3889770244362 05 Active 2022 Sarah Martin MD [address] [facility], [facility] [address], [place], [address] , [place] [facility] [employer] [facility] 3 11:46:41 Problem Notes None recorded. Medical Equipment None Reported. [...] propionate 50 mcg/actuati on nasal spray,suspe nsion [place] 1 spray every day by intranasa l [...] Date Recorded Body mass index (BMI) Body height Body weight Provider Name and Address Organization Details Last Updated DateTime 05/19/2021 39.9 kg/m2 165.1 cm 463016.17 g Not Available [facility] 07/04/2022 08:49:27 Date Recorded Body weight Body mass index (BMI) Body height Body temperature Heart rate Oxygen saturation Oxygen saturation in Arterial blood by Pulse oximetry Systolic blood pressure Diastolic blood pressure Provider Name and Address Organization Details Last Updated DateTime 3 801289. 65 g 38.1 kg/m2 165.1 cm 96.8 [degF] 81 /min 98 % 98 % 110 mm[Hg] 78 mm[Hg] Nickie Montenegro RN [facility] 3 08:17:02 Date Recorded Body mass index (BMI) Body height Oxygen saturation Oxygen saturation in Arterial blood by Pulse oximetry Heart rate Body temperature Body weight Systolic blood pressure Diastolic blood pressure Provider Name and Address Organization Details Last Updated DateTime 1 39.1 kg/m2 165.1 cm 96 % 96 % 94 /min 98.2 [degF] 874323. 21 g 98 mm[Hg] 72 mm[Hg] Not Available [facility] 3 08:49:21 Social History Question Answer Notes LastModified by Organizat ion Details LastModified Time Tobacco Smoking Status Never Smoker Emilie shah [facility] 08/29/2022 08:10:56 Do You Have An Advance Directive? No [id number] Information not available 07/04/2022 Do You Wear A Helmet When Biking? Yes Information not available 08/29/2022 What Is Your Level Of Caffeine Consumption? Occasional [id number] Information not available 07/04/2022 In The 14 Days Before Symptom Onset, Have You Had Close Contact With A Laboratory-confir med COVID-19 While That Case Was Ill? No Information not available 08/29/2022 In The 14 Days Before Symptom Onset, Have You Had Close Contact With A Person Who Is Under Investigation For COVID-19 While That Person Was Ill? No [email or web address] Information not available 08/29/2022 What Type Of Diet Are You Following? REGULAR [id number] Information not available 07/04/2022 Which Illicit Or Recreational Drugs Have You Used? Marijuana [email or web address] Information not available 08/29/2022 What Is The Highest Grade Or Level Of School You Have Completed Or The Highest Degree You Have Received? [id number] Information not available 08/29/2022 Have There Been Any Changes To Your Family Or Social Situation? No Information no t available 08/29/2022 What Is The Fluoride Status Of Your Home? Unknown [email or web address] Information not available 08/29/2022 Are There Any Guns Present In Your Home? No [email or web address] Information not available 08/29/2022 Do You Use Insect Repellent Routinely? Yes [email or web address] Information not available 08/29/2022 Where [facility] You Live? [facility] [email or web address] Information not available 08/29/2022 Do You Have A Medical Power Of Fuel Cell Designer? No [email or web address] Information not available 08/29/2022 Do You Have Any Pets? No [email or web address] Information not available 08/29/2022 What Is Your Relationship Status? Domestic Partner [id number] Information not available 07/04/2022 Do You Use Your Seat Belt Or Car Seat Routinely? Yes [email or web address] Information not available 08/29/2022 Do You Have Smoke And Carbon Monoxide Detectors In Your Home? Yes [email or web address] Information not available 08/29/2022 Are You Passively Exposed To Smoke? No [email or web address] Information no t available 08/29/2022 Are There Any Smokers In Your House? No [email or web address] Information not available 08/29/2022 Do You Participate In Social Media? Yes [email or web address] Information not available 08/29/2022 Do You Use Sunscreen Routinely? Yes [email or web address] Information not available 08/29/2022 Have You Recently Traveled Abroad? No Information not available 08/29/2022 Have You Used IV Drugs? No [email or web address] Information not available 08/29/2022 Are You Currently In School? No [email or web address] Information not available 08/29/2022 Do You Have Any Dietary Restrictions? No [email or web address] Information not available 08/29/2022 Sex: Female Functional Status Question Answer Note LastModified by Organizat ion Details LastModified Time Do you use any illicit or recreational drugs? Yes [email or web address] Information not available 08/29/2022 Do you or have you ever used any other forms of tobacco or nicotine? No [email or web address] Information not available 08/29/2022 What is your level of alcohol consumption? 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 Occasional [id number] Information not available 07/04/2022 Mental Status Question Answer Note LastModified by Organization D etails LastModified Time Do you feel stressed (tense, restless, nervous, or anxious, or unable to sleep at night)? [id number] [email or web address] Information not available 08/29/2022 Family History Nothing Reported Notes:mother-cervical cancer Medical [...] HPV, unspecified formulation 3 completed Not Available [facility] 07/04/2022 08:54:59 HPV, unspecified formulation 3 completed Not Available [facility] 07/04/2022 08:54:59 meningococcal ACWY, unspecified formulation 3 completed Not Available [facility] 07/04/2022 08:54:59 Tdap 2 completed Not Available [facility] 07/04/2022 08:54:59 meningococcal MCV4P 6 completed Not Available [facility] 07/04/2022 08:54:59 HPV, quadrivalent 5 completed Not Available [facility] 07/04/2022 08:54:59 Influenza, split virus, trivalent, PF 3 completed Not Available [facility] 07/04/2022 08:54:59 Past Encounters Encounter ID Performer Location Encounter Start Date Encounter Closed Date Diagnosis/Indication Diagnosis SNOMED-CT Code Diagnosis ICD10 Code Diagnosis Note [id number] Sarah Martin MD [facility] Primary Care [facility] [address] [place] [address] 05/02/2021 00:00:00 05/02/2021 13:43:53 [id number] Sarah Martin MD [facility] Primary Care [facility] [address] [place] [address] 05/19/2021 00:00:00 05/19/2021 17:18:45 [id number] GRIFFIN Rai [facility] Primary Care [facility] [address] [facility] [address] [place] [address] 08/29/2022 08:09:19 08/29/2022 08:48:51 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 [id number] G51.0 Continue artificial tears and genteal tears [...] None Recorded Advance Directives Directive N: Payers Insurance Date Sequence Insurance Name Policy Number Policy Moore Covered Member ID Moore Member ID Guarantor Name 08/29/2022 1 [facility] ON OR AFTER 11/03/20 (MEDICAID REPLACEMENT - HMO) Brandy Diaz [id number] Brandy Diaz Notes Date Note Type Note Provider Name and Address Organization Details Recorded Time 05/19/2021 text/html COVID-19 Symptom s September 2019Reported bypatient.COVID-19 Signs and Symptomscough worsening;fever worsening;chills worsening;muscle pain worsening;headache worsening;congestio n worsening Contacts and Exposureclose contact with a confirmed or suspected case of COVID-19 Not Available [place] [facility] [employer] 05/19/2021 17:18:45 08/29/2022 text/html Pt. 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 She has been to eye doctor and they have given her eye drops and gel she has been using at night time. Still having drooping of right side of face. GRIFFIN Rai [address] [facility] [facility] [address], [place], [address], [facility] 08/29/2022 08:52:12 OBGyn Episode No OBEpisode recorded.
--- OUTSIDE RECORDS SUMMARY | 2024-10-15 11:53 | XMS_ITS | Data Portability ---
Author Organization [facility] [place] Address [address] [place] [address] Care Team Providers Care Epic Willow Specialist Name Role Phone FAITH GILL Primary Care Provider [phone] Assessment Encounter Date Assessment Date Assessment LastModified by Organization Details LastModified Time 12/14/2020 12/14/2020 Annual gynecological exam performed. Patient will come back in a year unless there are new symptoms. Not available 12/14/2020 14:03:36 02/26/2024 02/26/2024 Annual gynecological exam performed. Patient will come back in a year unless there are new symptoms. Not available 02/26/2024 10:19:20 Plan of Treatment Reminders Order Date Submit Date Provider Last Modified By Organization Details Last Modified Time Details Appointments None recorded. Lab 17-hydroxyp rogesterone , QN, serum 2023 [facility] (Lab), [address] [place], [address], 23:38:27 dhea-sulfat e, serum 2023 [facility] (Lab), [address], [place], [address], 23:38:27 estradiol, serum 2023 [facility] (Lab), [address], [place], [address], 23:38:23 FSH (follicle-s timulating hormone), serum 2023 [facility] (Lab), [address], [place], [address], 4 23:38:24 HbA1c (hemoglobin A1c), blood 2023 [facility] (Lab), [address], [place], [address], 4 23:38:26 lh (luteinizin g hormone), serum 2023 [facility] (Lab), [address], [place], [address], 4 23:38:24 progesteron e, serum 2023 [facility] (Lab), [address], [place], [address], 4 23:38:26 prolactin, serum 2023 [facility] (Lab), [address], [place], [address], 4 23:38:24 shbg (sex hormone-bin ding globulin), serum 2023 [facility] (Lab), [address], [place], [address], 4 23:38:25 TSH, serum or plasma 2023 [facility] (Lab), [address], [place], [address], 4 23:38:25 testosteron e free/testos terone total, ratio, serum 2023 [facility] (Lab), [address], [place], [address], 23:38:27 test, urine 2023 024 [place], [address], [place], [address], 14:54:26 test, urine 2020 021 [place], [address], [place], [address], 14:11:31 Referral None recorded. Procedures None recorded. Surgeries None recorded. Imaging None recorded. Medication Orders Nexplanon 68 mg subdermal implant 2023 024 [id number], [address], [place], [id number], 14:54:23 Patient TargetsNo targets recorded. Patient InstructionsNo instructions recorded. Reason for Referral None Reported. Results Created Date Observation Date Name Description Value Unit Range Abnormal Flag Note LastModifiedBy Organization Detail LastModifiedTime 12/17/19 21 12/16/2020 pregn estrella test, urine HCG negati ve Not Available [place] [address], [place], [address], 12/16/2020 14:11:12 12/16/19 24 12/16/2023 pregn estrella test, urine HCG negati ve Not Available [place] [address], [place], [address], 12/16/2023 14:53:21 02/26/20 24 02/26/2024 ESTRA DIOL [...] 154-3 243 pg/mL 2nd Trime ster 1561- 37255 pg/mL 3rd Trime ster 8525- >3000 0 pg/mL Not Available [facility] (Lab) [address] [place], [address], 03/03/2024 23:38:23 02/26/20 24 02/26/2024 PROLA CTIN prolactin, total 13.60 NG/mL 4.79-2 3.30 This assay was perfo rmed using [employer] ratio n reage nts and test kits. Value s obtai arnaldo with other assay metho ds or kits canno t be used inter walden eay . Not Available [facility] (Lab) [address] [place], [address], 03/03/2024 23:38:24 02/26/20 24 02/26/2024 LH (LUTE [...] use: 7.7-5 8.5 mIU/m L Not Available [facility] (Lab) [address] [facility], [place], [address], 03/03/2024 23:38:24 02/26/20 24 02/26/2024 FSH FSH [...] use: 25.8- 134.8 mIU/m L Not Available [facility] (Lab) [address], [place], [address], 03/03/2024 23:38:24 02/26/20 24 02/26/2024 TSH, REFLE X FREE T4 TSH 3.55 uIU/m L 0.30-5 .33 Not Available [facility] (Lab) [address], [place], [address], 03/03/2024 23:38:25 02/26/20 24 02/26/2024 HUMAN SEX HORMO NE PETRA NG GLOBU LYNNETTE sex hormone binding globulin 16.4 nmole s/L 18.2-1 35.5 low Not Available [facility] (Lab) [address], [place], [address], 03/03/2024 23:38:25 02/26/20 24 02/26/2024 HEMOG LOBIN [...] >8.0% Actio n sugge sted Not Available [facility] (Lab) [address], [place], [address], 03/03/2024 23:38:26 02/26/20 24 02/26/2024 PROGE STERO [...] Trime ster 58.70 -214. 00 Not Available [facility] (Lab) [address] [place], [address], 03/03/2024 23:38:26 02/26/20 24 02/26/2024 DHEA SULFA TE DHEA-sulfate 121 ug/dL Femal e Range s Age(y ) Range (ug/d L) 10-15 34-28 0 15-20 65-36 8 20-25 148-4 07 25-35 99-34 0 35-45 61-33 7 45-55 35-25 6 55-65 19-20 5 65-75 9-246 > 75 12-15 4 Not Available [facility] (Lab) [address] [place], [address], 03/03/2024 23:38:26 02/26/20 24 02/26/2024 TESTO STERO NE, FREE( DIALY SIS) AND TOTAL (LC/M S/MS) testosterone , total 20 NG/dL 2-45 For addit ional bamr jessie bustamante e refer to http: //osmani marie.que stdia gnost ics.c om/fa q/ Total Testo stero neLCM [facility] Q165 (This link is being provi ded for infor robert nal/ educa mary l purpo ses only. ) This test was devel oped and its pool tical perfo rmanc e milly cteri stics have been deter mined by [employer] Pr[place]ep [place], [place]. It has not been clear ed or appro candido by the U.S. Food and Drug Admin istra tion. This assay has been valid ated pursu ant to the CLIA regul ation s and is used for clini sydnee purpo ses. Not Available [facility] (Lab) [address] [place], [address], 03/03/2024 23:38:27 02/26/20 24 02/26/2024 TESTO STERO NE, FREE( DIALY SIS) AND TOTAL (LC/M S/MS) testosterone , free 4.0 pg/mL 0.1-6. 4 This test was devel oped and its pool tical perfo rmanc e milly cteri stics have been deter mined by [employer] Pradeep [place], [place]. It has not been clear ed or appro candido by the U.S. Food and Drug Admin istra tion. This assay has been valid ated pursu ant to the CLIA regul ation s and is used for clini sydnee purpo ses. Perfo rming Organ izati on Infor matio n: Site ID: AMD Name: [employer] nicol Gutierrezo ls [facility] emelina Addre ss: [id number] [facility] Dex[place], [place] Direc tor: Tara Sosa MD PhD Not Available [facility] (Lab) [address] [place], [address], 03/03/2024 23:38:27 02/26/20 24 02/26/2024 17-OH PROGE [...] valery [facility] niyah pat[place] , Addre ss: [id number] [address] [facility] [place] [address] Direc tor: Mercedes valentino MD,Ph D,CASEY Not Available [facility] (Lab) [address] [facility], [place], [address], 03/03/2024 23:38:27 02/26/20 24 02/26/2024 IMAGE GUIDE [...] as clini dereck durand nted. Not Available [facility] (Lab) [address], [place], [address], 03/04/2024 13:53:19 Result Notes None recorded. Problems Name Problem SNOMED Code Status Onset Date Resolution Date Notes Provider Name and Address Organization Details Recorded Time Bleeding 457892145 Completed 201912/14/2020 Abnormal uterine bleeding; Recorded Elsewhere : No Locati on: [facility] So urce: EHR Chron ic: N Practic e ID: [id number] Bill able Time: 11:00:00 AM [facility] 14:04:[address] Concept Completed 201912/14/2020 Encntr for general adult medical exam w/o abnormal findings; Recorded Elsewhere : No Locati on: [facility] So urce: EHR Chron ic: N Practic e ID: [id number] Bill able Time: 11:00:00 AM [facility] 14:04:56 Contrace ption care manageme nt Completed 201712/14/2020 Encounter for contracep tive managemen t, unspecifi ed;Record ed Elsewhere : No Locati on: [facility] So urce: EHR Chron ic: N Practic e ID: [id number] Bill able Time: 10:30:00 AM [facility] 14:04:[address] Concept Completed 201712/14/2020 Encounter for surveilla nce of other contracep tives;Rec orded Elsewhere : No Locati on: [facility] So urce: EHR Chron ic: N Practic e ID: [id number] Bill able Time: 03:45:00 PM [facility] 14:04:58 Pregnanc y test negative [id number] Completed 201712/14/2020 Encounter for test, result negative; Recorded Elsewhere : No Locati on: [facility] So urce: EHR Chron ic: N Practic e ID: [id number] Damian able Time: 03:45:00 PM [address]i Alvarenga [facility] 14:04:55 Implanta tion of subcutan eous contrace ptive Completed 201712/14/2020 Enctr for init prescript ion of implntbl subdermal contracep ;Practice ID: [id number] [facility] 14:04:53 Problem Notes None recorded. Procedures Surgical History Date Name Laterality Status Provider Name and Address Organization Details Recorded Time 12/16/19 24 Control Implant Replacement completed Hardeep Husain MD [address], [place], [address], , [facility] 12/16/2023 15:33:00 09/04/19 23 Laparoscopy completed Rubia Dickerson [facility] 12/16/2023 14:48:51 12/17/19 21 Control Implant Removal completed [facility] [address], [place], [address], , [facility] 12/16/2020 14:25:34 12/17/19 21 Control Implant Insertion completed Elsi Lynch [place] [address], [place], [address], , P[facility] 12/16/2020 14:27:59 05/06/19 16 Tonsillectomy completed Rubia Dickerson [facility] 12/16/2023 14:48:59 Unlisted px ant segment eye completed Rubia Dickerson [facility] 12/16/2023 14:49:13 Imaging Results None recorded. [...] oral route every day 12/14 completed Prescrib ed Zach e: No Locat ion: [facility] M odify By: cfrieder ich Enco [...] Updated DateTime 12/14/2020 163.83 cm 39.5 kg/m2 209139.6 1 g 104 mm[Hg] 68 mm[Hg] Sumi Alvarenga [facility] 14:04:37 Date Recorded Body height Body mass index (BMI) Body weight Systolic blood pressure Diastolic blood pressure Provider Name and Address Organization Details Last Updated DateTime 12/16/2023 163.83 cm 49.5 kg/m2 585075.5 6 g 136 mm[Hg] 81 mm[Hg] Rubia Dickerson [facility] 4 14:43:58 Date Recorded Body height Body mass index (BMI) Body weight Systolic blood pressure Diastolic blood pressure Provider Name and Address Organization Details Last Updated DateTime 12/16/2020 163.83 cm 39.5 kg/m2 348114.6 1 g 114 mm[Hg] 73 mm[Hg] Sumi Alvarenga [facility] 14:10:42 Date Recorded Body height Body mass index (BMI) Body weight Systolic blood pressure Diastolic blood pressure Provider Name and Address Organization Details Last Updated DateTime 02/26/2024 163.83 cm 50.4 kg/m2 789283.5 3 g 132 mm[Hg] 81 mm[Hg] Rossana Velazquezen [facility] 4 10:22:41 Social History Question Answer Notes LastModified by Organizat ion Details LastModified Time Tobacco Smoking Status Never Smoker Sumi Alvarenga [facility] 12/14/2020 14:10:31 Are You Blind Or Do You Have [...] Or The Highest Degree You Have Received? [id number] Information not available 12/16/2023 Are There Any [...] Information not available 12/16/2023 Do You Use Sunscreen Routinely? No Information not available 12/16/2023 Have You Used IV Drugs? No Information not available 12/16/2023 Sex: Unknown Functional Status Question Answer Note LastModified by Organizat ion Details LastModified Time Do you use any illicit or recreational drugs? No Information not available 12/14/2020 What is your level of alcohol consumption? None Information not available 12/16/2023 Are you able to walk? YESWOREST Information not available 12/14/2020 What is your occupation? [employer] Information not available 12/16/2023 What is your exercise level? Occasional Information not available 12/14/2020 Mental Status Question Answer Note LastModified by Organization D etails LastModified Time Do you feel stressed (tense, restless, nervous, or anxious, or unable to sleep at night)? [id number] Information not available 12/14/2020 Family History Relationship Description Onset Age of this Age Resolved Age Notes LastModified by Organization Details LastModified Time Brother Asthma Not available 14:07:32 Father Diabetes mellitus Not available 2020 14:07:40 Father Malignant neoplasm of lung Not available 2020 14:07:49 Maternal Aunt Malignant tumor of breast Not available 2020 14:08:01 Maternal Aunt Disorder of thyroid gland Not available 2020 14:08:19 Maternal Grandmother Malignant tumor of breast Not available 2020 14:08:11 Mother Anemia Not available 03/2021 14:08:34 Mother Cyst of ovary [email or web address] Not available 2023 10:17:28 Mother Malignant tumor of cervix Not available 2020 14:08:53 Mother Mental disorder Not available 2020 14:09:12 Mother Disorder of thyroid gland Not available 2020 14:09:27 Mother Malignant neoplasm of ovary Not available 2020 14:09:40 Maternal Grandfather Hypertensive disorder Not available 2020 14:10:03 Paternal Grandfather Diabetes mellitus Not available 2020 14:10:09 Medical History Condition Response Other N Blood Transfusion N Dermatologic Disorders N Gestational Diabetes N Anxiety Disorder N Autoimmune disease N Arthritis N Polyps N Infertility N Acid Reflux (GERD) N Cancer N Varicosities N Stroke N Neurologic/Epilepsy N Fibromyalgia N Headaches N Kidney Disease N Heart Problems N Kidney or Bladder Problems N Eating Disorder N Art (IVF or FET) N Hepatitis/Liver Disease N No Past Medical History Y Urinary Tract Infection N Asthma N Trauma/Violence N Thrombophilias N Allergies (Food, seasonal, environmental ) N Breast Cancer N Drug/Latex Allergies/Reactions N Lung Disease N Defects or Inherited Disease N Breast Problem N Hematologic disorders N Anesthesia Complications N History of STI N Deep Vein Thrombosis N Polycystic ovary syndrome N History of abnormal pap N Endometriosis N High Cholesterol N Thyroid Problems N GI Problems N Anemia N Psychiatric Illness N Ovarian Cancer N Diabetes N Pulmonary (TB, Asthma) N Eczema N Abuse/Domestic Violence N Depression/ depression N Heart Disease N Pre-Eclampsia N Hypertension N Osteoporosis N Gynecological History Statement/Question Response Abnormal Pap [...] SNOMED-CT Code Diagnosis ICD10 Code Diagnosis Note [id number] Elsi Lynch [facility] [address],[facility] [place] [address] 12/14/2020 13:47:10 12/14/2020 14:27:54 Gynecologic examination 13023025 Z01.419 Take Calcium with Vitamin D 1200mg [...] issues or concerns. Contracept ion care management [id number] Z30.9 Nexplanon placed 12/19/2017. Has appt for removal/re insertion set already.No questions about this. [id number] [facility] [address] [address] 12/16/2020 13:55:02 12/16/2020 14:33:04 Removal of subcutaneous contraceptive 595011292 Z30.46 Removal site was cleansed with betadine and 3cc of lidocaine used for anesthesia . Device was removed in normal fashion without difficulty . Steri stips and pressure bandage placed. Implantati on of subcutaneous contraceptive 336545759 Z30.9 Patient is here currently on her [...] insertion site Screening procedure 2012 5006 Z13.9 [id number] Haredep Husain MD [place] [address],[facility] [place] [address] 12/16/2023 14:31:19 12/16/2023 15:37:12 Contraception care management 243656927 Z30.9 Nexplanon was removed and reinserted without complicati ons. She tolerated it well. Implantati on of subcutaneous contraceptive 040284541 Z30.46 [id number] SHELLEY RDZ MD [place] [address],[facility] [place] [address] 02/26/2024 10:17:08 02/26/2024 11:12:43 Polycystic ovary syndrome [id number] E28.2 - patient reports hx of oligomenor chris- would like hormone testing- discussed some levels may not be accurate as she is on Nexplanon Gynecologi c examination 03468989 Z01.419 [facility]- Cervical cancer screening: Pap smear obtained today, [...] Recorded Advance Directives Directive None Recorded Payers Insurance Date Sequence Insurance Name Policy Number Policy Moore Covered Member ID Moore Member ID Guarantor Name 03/02/2024 1 [facility] - DOS ON OR AFTER 20 (MEDICAID REPLACEMENT - HMO) [id number] Brandy Diaz [id number] Brandy Diaz Notes Date Note Type Note [...] and high risk HPV typing Elsi Lynch [facility] [address], [place], [address], , P.C[facility] 12/14/2020 14:22:39 12/16/2020 text/html Here today for nexplanon removal/insertion. Elsi Lynch [facility] [address], [place], [address], , [facility] 12/16/2020 14:31:01 12/16/2023 text/html 28-year-old femzaira newsome presents for Nexplanon removal and reinsertion. She understands the procedure. It was explained to her in detail. She understands risks, benefits, and alternatives. She has completed the informed consent process. Hardeep Husain MD [address], [place], [address], , P.C. 12/16/2023 15:33:53 02/26/2024 text/html Presents today [...] evaluate. SHELLEY RDZ MD [address], [place], [address], [place] [facility] 02/26/2024 11:11:36 OBGyn Episode Ob Episode Information Episode Created Date Number of Fetuses Patient Bloodtype Patient rh Status Prepregnancy Weight lbs Domestic Partner Domestic Partner Phone Father Name Supervisory Investigative Specialist Status 12/05/19 24 1 DELETED Fetus Data First Name Last Name Admitted to NICU Weight (g) Sex Living Outcome Pediatric Complications Fetus ID Race Codes Race Delivery Type [id number] Frandy Calculation Initial Frandy Date Initial Exam [...]
--- OUTSIDE RECORDS SUMMARY | 2024-10-15 11:53 | XMS_ITS | Clinical Summary ---
Author Organization [facility] Address [address] [place] [address] Care Team Providers Care Grain Packer Name Role Phone Daisy Hanks AMY-YAMILA Primary Care Provider Source Comments [facility],non-owned Affiliates and Associated Physician Practices is amultiple site organization consisting of ambulatory clinics and hospital sitesin [place], [place], [place] and [place]. This disclosure is being madepursuant to the Care Everywhere program and may not contain all information available regarding this patient. Last updated 18.[facility] Allergies Active Allergy Reactions Criticality Noted Date Comments Skin Adhesives Rash Medium 01/30/2023 rash Medications * Be aware that medications may not be up to date on this document. Alwaysverify current medications with the patient. SUMAtriptan (Imitrex) 25 MG tablet TAKE 1 TABLET BY MOUTH AT ONSET OF SYMPTOMS. MAY REPEAT IN 2 HOURS FOR 1 DOSE. DO NOT EXCEED 200 MG IN 24 HOURS 01/11/20 22 Active etonogestrel (Nexplanon) 68 MG implant Nexplanon 68 mg subdermal implant Active ibuprofen (Motrin) 600 MG tablet Take 1 (one) tablet by mouth every 6 hours as needed for Pain 30 tablet 01/24/20 24 Active docusate sodium (Colace) 100 MG capsule Take 1 (one) capsule by mouth 2 times daily 14 capsule 01/24/20 24 Active ondansetron, disintegrating, (Zofran ODT) 4 MG tablet Take 1 (one) tablet by mouth every 6 hours as needed for Nausea/Vomiting Allow tablet to dissolve on the tongue 20 tablet 01/24/20 24 Active methocarbamol (Robaxin) 750 MG tablet Take 1 (one) tablet by mouth every 6 hours as needed for Muscle Spasms 8 tablet 01/24/20 24 Active Sodium Chloride Flush (0.9% NaCl) injection 10 mL by Intracatheter route every 12 hours 100 mL 2 02/26/20 24 Active oxyCODONE, immediate release, (Roxicodone) 10 MG tabletIndications :Acute cholecystitis Take 1 (one) tablet by mouth every 4 hours as needed 10 tablet 03/13/20 Active acetaminophen (Tylenol) 325 MG tablet Take 2 (two) tablets by mouth every 6 hours as needed Maximum allowable Acetaminophen amount = 4 Grams (4000 mg) / 24 hours. 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 [...] care, and heating? Not very hard 03/13/2024 [employer] [place] [facility] Occupat ional Health - Occupational Stress [...] place to sleep or slept in a penitentiary (including now)? Patient declined 01/21/2024 Housing Stability [...] any time in the past 12 m [facility], were you homeless or living in a penitentiary (including now)? No 03/13/2024 Comments No Sex and Gender Information Value Date Recorded Sex Assigned at Not on file Legal Sex Female 9:45 AM CDT Gender Identity Not on file Sexual Orientation Not on file Last Filed Vital Signs Vital Sign Reading Time Taken Comments Blood Pressure 131/80 03/13/2024 7:27 AM SAP BW CONSULTANT Pulse 75 03/13/2024 7:27 AM SAP BW CONSULTANT Temperature 36.7 C (98 F) 03/13/2024 7:27 AM SAP BW CONSULTANT Respiratory Rate 18 03/13/2024 7:27 AM SAP BW CONSULTANT Oxygen Saturation 100% 03/13/2024 7:27 AM SAP BW CONSULTANT Inhaled Oxygen Concentration - - Weight 131.5 kg (290 lb) 03/12/2024 10:39 AM SAP BW CONSULTANT Height 167.6 cm (5' 6) 03/12/2024 10:39 AM SAP BW CONSULTANT Body Mass Index 46.81 03/12/2024 10:39 AM SAP BW CONSULTANT Plan of Treatment Health Maintenance Due Date Last Done Comments HIV SCREENING 2012 HEPATITIS C SCREENING 05/23/2015 DTAP/TDAP/TD VACCINES (1 - Tdap) 2016 HEPATITIS B VACCINE (1 of 3 - 19+ 3-dose series) 2016 COVID-19 VACCINE (1 - 2023-2 5 season) 2024 DEPRESSION SCREENING 05/06/2024 INFLUENZA VACCINE (Season Ended) 2025 02/19/20 13 PAP SMEAR 02/25/2027 02/26/2024 ZOSTER VACCINE (1 of 2) 2047 HIB VACCINE Aged Out No longer eligi ble based on patient's age to complete this topic HPV VACCINE Aged Out No longer eligi ble based on patient's age to complete this topic MENINGOCOCCAL (Group B) VACC INE SHARED DECISION-MAKING Aged Out No longer eligibl e based on patient's age to complete this topic MENINGOCOCCAL GROUPS A/C/Y/W VACCINE Aged Out No longer eligible b ased on patient's age to complete this topic PNEUMOCOCCAL VACCINE Aged Out No long er eligible based on patient's age to complete this topic Insurance [facility] Advance Directives * Full Code (Latest Code [...] 1:25 AM 03/04/2022 7:19 PM Care Teams Grain Packer Relationship Specialty Start Date End Date Daisy Hanks, VIDEO INTERN[employer]CASINO FLOOR SUPERVISOR [address] [address] PCP - General Nurse Practitioner 02/06/24
[2024-10-15] MEDS: ONDANSETRON INJ 4 MG/2 ML VIAL IV PUSH (11:59)
[2024-10-15] MEDS: MORPHINE SULFATE (*CRX) 4 MG/ML INJ IV PUSH (12:00)
[2024-10-15 12:23] LABS: BEDSIDEPREGUCG Negative (Negative)
[2024-10-15 12:27] LABS: Pregnancy On Board Control Positive; Urine Pregnancy Test Negative
[2024-10-15 13:00] VITALS: BP 132/80; PULSE 90; RESP 16; O2SAT 98
[2024-10-15] MEDS: KETOROLAC 30 MG/ML VIAL (*BKC) IV PUSH (13:36)
[2024-10-15 13:42] VITALS: BP 128/65; PULSE 65; RESP 16; O2SAT 100
== END 2024-10-15 13:44 | disposition home or self-care (01) ==
PROVIDERS: Emergency Provider Physician Assistant; PCP Nurse Practitioner Family
DX: N83.201 Unspecified ovarian cyst, right side (principal)
CPT/HCPCS: 36415; 76830; 76856; 80053; 81003; 81025; 85025; 96374; 96375; 99284; J1885; J2270; J2405